=== PATIENT | male | born 1940 | race African-American/Black ===

== ENCOUNTER 2016-10-11 07:40 | Day surgery (SDC) | payer OTHER ==
[2016-10-11] MEDS ORDERED: FLUMAZENIL 0.5 MG/5 ML MDV IVP ONE (08:06)
[2016-10-11] MEDS ORDERED: NALOXONE HCL 0.4 MG/ML INJ ONE (08:06)
[2016-10-11] MEDS ORDERED: fentaNYL 100 MCG/2 ML INJ ONE ×2 (08:07→09:40)
[2016-10-11] MEDS ORDERED: MIDAZOLAM 2 MG/2 ML VIAL ONE (08:08)
[2016-10-11 08:56] LABS: HEMATOCRIT 35.9 % (40.0-51.0)
[2016-10-11 09:12] LABS: CREATININE 6.2 mg/dL (0.7-1.3)
[2016-10-11 09:19] LABS: INR 1.14 (0.83-1.16); PROTIME(PATIENT) 14.5 SEC (12.0-15.0)
[2016-10-11 09:20] LABS: APTT 37.2 SEC (23.0-38.0)
[2016-10-11] MEDS ORDERED: IOPAMIDOL (ISOVUE-300) 100 ML BTL IV ONE (16:59)
== END 2016-10-11 10:50 | disposition home or self-care (01) ==
LOC: FIMAGING 07:40
PROVIDERS: ATTEND Internal Medicine Nephrology
PROC: B51W1ZA Fluoroscopy of Dialysis Shunt/Fistula using Low Osmolar Contrast, Guidance (ICD-10-PCS; principal; 2016-10-11 10:15)
PROC: 057F3ZZ Dilation of Left Cephalic Vein, Percutaneous Approach (ICD-10-PCS; principal; 2016-10-11 10:15)
DX: T82.858A Stenosis of other vascular prosthetic devices, implants and grafts, initial encounter (principal); N18.6 End stage renal disease
CPT/HCPCS: 36902; 99152; 99153; C1769; C1894; C1725; J1644; J2250; J2310; J3010; Q9967

== ENCOUNTER → 2017-01-22 | Day surgery (SDC) | payer OTHER ==
[~2017-01-22] MED LIST: IOPAMIDOL (ISOVUE-300) 100 ML BTL ONE
== END | disposition home or self-care (01) ==
LOC: FIMAGING 07:39
PROVIDERS: ATTEND Radiology Diagnostic Radiology
PROC: 057C3ZZ Dilation of Left Basilic Vein, Percutaneous Approach (ICD-10-PCS; principal; 2017-01-22)
PROC: 057 Upper Veins, Dilation (ICD-10-PCS; principal; 2017-01-22)
DX: T82.858A Stenosis of other vascular prosthetic devices, implants and grafts, initial encounter (principal); N18.6 End stage renal disease
CPT/HCPCS: 36902; C1758; C1769; C1894; C1725; J1644; Q9967

== ENCOUNTER 2017-07-26 08:50 | Emergency (ER) | payer OTHER ==
[2017-07-26 08:56] VITALS: RESP 18; TEMP 98.2; O2SAT 95
--- NOTE | 2017-07-26 09:32 | EDPHY ---
General Narrative: CHIEF COMPLAINT: Diarrhea HISTORY OF PRESENT ILLNESS: Patient complains of 3 days duration of diarrhea. Sudden onset Saturday morning awoke from sleep. Constant duration. Multiple bowel movements per day, too numerous to count. No fever. No abdominal pain. No nausea or vomiting. No bright red blood in the diarrhea. Described as watery brown. No solid component to it. No recent travel or hospitalizations. No recent antibiotics. The patient thinks that it was due to a meal that was prepared outside the home on Saturday. This was a meal prepared at a halfway or 1 of his friends lives. No other associated complaints or modifying factors. Patient dialyzes Saturday, Saturday and Saturday. Next eyelids scheduled for 11:30 a.m. today REVIEW OF SYSTEMS: Ten systems reviewed and are negative unless otherwise noted in the HPI PCP: Dr. Bonilla SPECIALISTS: [facility] (formerly [facility])[3] PAST MEDICAL HISTORY: Hypertension, chronic kidney disease, coronary artery disease, diverticulitis, PAST SURGICAL HISTORY: Partial colectomy, cardiac stents, left arm fistula, hip surgery SOCIAL HISTORY: Nonsmoker. FAMILY HISTORY: Noncontributory EXAMINATION General Appearance: Alert, no distress Head: normocephalic, atraumatic Eyes: Pupils equal and round, no conjunctival pallor or injection ENT, Mouth: Mucous membranes moist. Airway patent Neck: Normal inspection, supple, non-tender Respiratory: Lungs are clear to auscultation. No wheezing. No crackles. No diminishment. No labored breathing Cardiovascular: Regular rate and rhythm. No murmur. Palpable thrill to left upper extremity fistula Gastrointestinal: Abdomen is soft and nontender. No distention. No tympany. No rigidity. Bowel sounds are present in all 4 quadrants Back: non-tender, no bony abnormalities Neurological: GCS 15. A&O, nonfocal, normal gait. Strength symmetric Skin: Warm and dry, no rash Extremities: Nontender, no pedal edema Psychiatric: Mood and affect normal DIFFERENTIAL DIAGNOSES: Including but not limited to infectious diarrhea, dehydration, colitis, diverticulitis, enteritis, gastroenteritis MDM: 9:18 a.m. Diarrhea of 3 days duration. This is a watery brown diarrhea. No bright red blood. No abdominal pain. No fever. No shortness of breath. No recent hospitalizations or antibiotics. No travel. No known sick contacts. Did have a meal prepared at a halfway on Saturday night he suspects was the cause. Abdominal exam is benign. He is in no acute distress. No tachycardia. 10:40 a.m. Patient re-evaluated. He is resting comfortably and was asleep when I enter the room. He has not yet had a bowel movement. At this time he is going to try and provide a sample. 10:50 a.m. Patient went to the restroom but was unable to provide a sample. He says he is feeling better. At this point he has a benign abdominal examination. Vital signs are stable. He does not need emergent dialysis, and he has dialysis scheduled at 11:30 a.m.. He is asking to be discharged home. I do feel he is stable to do so. He will follow up with primary care physician. He will return to the emergency department for any return of diarrhea. He is comfortable this plan and discharged home stable condition. SUPERVISION: Patient was independently examined, but I discussed the case with my secondary supervising physician Dr. Clark - History Smoking Status: Never smoked - Objective Vital Signs: Initial Vital Signs Temperature (C) 98.2 F 07/26/17 08:51 Heart Rate 83 07/26/17 08:51 Respiratory Rate 18 07/26/17 08:51 Blood Pressure 198/114 H 07/26/17 08:51 O2 Sat (%) 95 07/26/17 08:51 O2 Delivery Mode Room Air Allergies/Adverse Reactions: No Known Allergies Allergy (Verified 10/01/16 17:21) Home Medications: Medication Instructions Recorded Cholecalciferol Vit D3 [Vitamin D3 1,000 units PO DAILY 08/04/14 (*)] Gabapentin [Neurontin 100 MG (*)] 200 mg PO HS 01/03/16 Aspirin [Aspirin 81mg (*)] 81 mg PO DAILY 06/04/16 Ferrous Sulfate [Ferrous Sulf 325 325 mg PO DAILY 06/04/16 MG (*)] Herbals/Supplements -Info Only 1 ea PO DAILY 06/04/16 C/E/Zn/Cu/OM3/DHA/EPA/LUT/ZEAX 1 each PO DAILY 07/17/16 [Preservision Areds 2 Softgel] Amlodipine Besylate 07/26/17 Lisinopril 07/26/17 Laboratory Results: Laboratory Results 07/26/17 09:26 07/26/17 09:26 07/26/17 07/26/17 09: 09:26 WBC 4.12 10^3/uL 10^3/uL (3.80-9.50) RBC 3.23 10^6/uL L 10^6/uL (4.40-6.38) Hgb 10.3 g/dL L g/dL (13.7-17.5) Hct 29.5 % L % (40.0-51.0) MCV 91.3 fL fL (81.5-99.8) MCH 31.9 pg pg (27.9-34.1) MCHC 34.9 g/dL g/dL (32.4-36.7) RDW 12.8 % % (11.5-15.2) Plt Count 154 10^3/uL 10^3/uL (150-400) MPV 10.1 fL fL (8.7-11.7) Neut % (Auto) 64.3 % % (39.3-74.2) Lymph % (Auto) 18.0 % % (15.0-45.0) Armstrong % (Auto) 14.6 % H % (4.5-13.0) Eos % (Auto) 2.9 % % (0.6-7.6) Baso % (Auto) 0.0 % L % (0.3-1.7) Nucleat RBC Rel Count 0.0 % % (0.0-0.2) Absolute Neuts (auto) 2.65 10^3/uL 10^3/uL (1.70-6.50) Absolute Lymphs (auto) 0.74 10^3/uL L 10^3/uL (1.00-3.00) Absolute Monos (auto) 0.60 10^3/uL 10^3/uL (0.30-0.80) Absolute Eos (auto) 0.12 10^3/uL 10^3/uL (0.03-0.40) Absolute Basos (auto) 0.00 10^3/uL L 10^3/uL (0.02-0.10) Absolute Nucleated RBC 0.00 10^3/uL 10^3/uL (0-0.01) Immature Gran % 0.2 % % (0.0-1.1) Immature Gran # 0.01 10^3/uL 10^3/uL (0.00-0.10) Sodium 143 mEq/L mEq/L (134-144) Potassium 4.3 mEq/L mEq/L (3.5-5.2) Chloride 102 mEq/L mEq/L (97-110) Carbon Dioxide 20 mEq/l L mEq/l (22-31) Anion Gap 21 mEq/L H mEq/L (8-16) BUN 71 mg/dL H mg/dL (7-23) Creatinine 11.6 mg/dL H* mg/dL (0.7-1.3) Estimated GFR 4 Glucose 90 mg/dL mg/dL (70-100) Calcium 8.3 mg/dL L mg/dL (8.5-10.4) Phosphorus 5.5 mg/dL H mg/dL (2.5-4.5) Departure - Departure Disposition: Home, Routine, Self-Care Clinical Impression: CKD (chronic kidney disease) stage V requiring chronic dialysis Diarrhea Qualifiers: Diarrhea type: unspecified type Qualified Code(s): R19.7 - Diarrhea, unspecified Condition: Good Instructions: Loperamide (By mouth), Acute Diarrhea (ED) Additional Instructions: 1. Proceed to your schedule dialysis 2. Return to the emergency department for return of diarrhea or for any abdominal pain Referrals: Diana Bonilla MD [Medical Doctor] - As per Instructions
[2017-07-26 09:40] LABS: % IMMATURE GRANULYOCYTES 0.2 % (0.0-1.1); ABSOLUTE IMMATURE GRANULOCYTES 0.01 10^3/uL (0.00-0.10); ADD DIFF? NO; ADD MORPH? NO; ADD SCAN? NO; ATYPICAL LYMPHOCYTE FLAG 30 (0-99); FRAGMENT RBC FLAG 0 (0-99); HEMATOCRIT 29.5 % (40.0-51.0); HEMOGLOBIN 10.3 g/dL (13.7-17.5); LEFT SHIFT FLG 0 (0-99); LIPEMIA HEMOLYSIS FLAG 90 (0-99); MEAN CELL HEMOGLOBIN 31.9 pg (27.9-34.1); MEAN CELL HEMOGLOBIN CONCENTR. 34.9 g/dL (32.4-36.7); MEAN CELL VOLUME 91.3 fL (81.5-99.8); MEAN PLATELET VOLUME 10.1 fL (8.7-11.7); PLATELET CLUMPS FLAG 0 (0-99); PLATELET COUNT 154 10^3/uL (150-400); RED BLOOD CELL COUNT 3.23 10^6/uL (4.40-6.38); RED CELL DISTRIBUTION WIDTH 12.8 % (11.5-15.2)
[2017-07-26 09:50] LABS: ANION GAP 21 mEq/L (8-16); CALCIUM 8.3 mg/dL (8.5-10.4); CARBON DIOXIDE 20 mEq/l (22-31); CHLORIDE 102 mEq/L (97-110); GLOMERULAR FILTRATION RATE 4; GLUCOSE 90 mg/dL (70-100); POTASSIUM 4.3 mEq/L (3.5-5.2); SODIUM 143 mEq/L (134-144)
[2017-07-26 09:56] LABS: CREATININE 11.6 mg/dL (0.7-1.3)
[2017-07-26 11:20] VITALS: BP 201/87; PULSE 74
== END 2017-07-26 11:23 | disposition home or self-care (01) ==
DX: R19.7 Diarrhea, unspecified (principal); I12.0 Hypertensive chronic kidney disease with stage 5 chronic kidney disease or end stage renal disease; I25.10 Atherosclerotic heart disease of native coronary artery without angina pectoris; N18.5 Chronic kidney disease, stage 5; Z79.82 Long term (current) use of aspirin; Z95.5 Presence of coronary angioplasty implant and graft; Z99.2 Dependence on renal dialysis

== ENCOUNTER → 2018-01-30 | Day surgery (SDC) | payer OTHER ==
[~2018-01-30] MED LIST changes: +LIDOCAINE 1% 300 MG/30 ML SDV ONE
--- NOTE | 2018-01-30 09:59 | PDRADPN ---
Radiology Procedure Note Date of Procedure: 01/30/18 Radiologist: Evangelista Colin Anesthesia: Local (Specify) Pre-op Diagnosis: avf with prolonged bleeding Post-op Diagnosis: same Indication: tx Procedure: fistulagram with 7mm forearm cephalic venoplasty. Finding(s): 3-4cm moderate stenosis mid forearm outflow vein. Resistant to 7mm plasty, but waist did relent completely after 2 mins at burst pressure of 22 mmHg. Excellent profile post tx. Inf/Abcess present in the surg proc area at time of surgery?: No EBL: Minimal Complications: none
== END | disposition home or self-care (01) ==
LOC: FIMAGING 08:30
PROVIDERS: ATTEND Internal Medicine Nephrology
PROC: 057F3ZZ Dilation of Left Cephalic Vein, Percutaneous Approach (ICD-10-PCS; principal; 2018-01-30)
PROC: B51N1ZZ Fluoroscopy of Left Upper Extremity Veins using Low Osmolar Contrast (ICD-10-PCS; principal; 2018-01-30)
DX: T82.858A Stenosis of other vascular prosthetic devices, implants and grafts, initial encounter (principal); T82.848A Pain due to vascular prosthetic devices, implants and grafts, initial encounter; Z99.2 Dependence on renal dialysis
CPT/HCPCS: 36902; C1769; C1894; C1725; J1644; Q9967

== ENCOUNTER → 2018-02-18 | Outpatient (CLI) | payer OTHER | LOC: BHFA 15:30 | PROVIDERS: ATTEND Internal Medicine Cardiovascular Disease | DX: R53.1 Weakness (principal) ==

== ENCOUNTER 2018-07-11 19:06 | Inpatient (IN) | payer OTHER ==
--- NOTE | 2018-07-11 19:30 | EDPHY ---
H & P Stated Complaint: rectal bleeding Time Seen by Provider: 07/11/18 19:19 HPI/ROS: CHIEF COMPLAINT: Rectal bleeding HISTORY OF PRESENT ILLNESS: The 78-year-old male with end-stage renal disease presents with bright red blood per rectum. History of diverticular bleed in 2016, requiring several units of packed red blood cells and partial colectomy. Onset rectal bleeding just prior to arrival. Had the urge to have a bowel movement and passed a large amount of bright red blood in the toilet, without stool. No dizziness, weakness, cp, SOB. No abdominal pain or vomiting. REVIEW OF SYSTEMS: complete 10 point ROS reviewed and is negative except for the noted elements in the HPI - Personal History Current Tetanus Diphtheria and Acellular Pertussis (TDAP): Yes - Medical/Surgical History Hx Asthma: No Hx Chronic Respiratory Disease: No Hx Diabetes: No Hx Cardiac Disease: Yes Hx Renal Disease: Yes Hx Cirrhosis: No Hx Alcoholism: No Hx HIV/AIDS: No Hx Splenectomy or Spleen Trauma: No Other PMH: dialysis, sleep apnea,KIDNEY DISEASE L ARM FISTULA, COLON SURGERY FOR BLEEDING DIVERTICULUM, AK,STENTS, HIP SURGERY. HTN - Social History Smoking Status: Never smoked Alcohol Use: Sober Drug Use: None - Physical Exam Exam: General Appearance: Alert, pleasant Eyes: Pupils equal and round, no conjunctival pallor or injection ENT, Mouth: Mucous membranes moist Neck: Normal inspection Respiratory: Lungs are clear to auscultation Cardiovascular: Regular rate and rhythm Gastrointestinal: Abdomen is soft and nontender Rectal: Bright red blood present Neurological: A&O, nonfocal exam Skin: Warm and dry Extremities: Shunt right forearm Psychiatric: Mood and affect normal Constitutional: Initial Vital Signs Temperature (C) 36.8 C 07/11/18 19:12 Heart Rate 73 07/11/18 19:12 Respiratory Rate 20 07/11/18 19:12 Blood Pressure 196/87 H 07/11/18 19:12 O2 Sat (%) 96 07/11/18 19:12 O2 Delivery Mode Nasal Cannula O2 (L/minute) 2 Allergies/Adverse Reactions: No Known Allergies Allergy (Verified 07/11/18 19:12) Home Medications: Medication Instructions Recorded Aspirin [Aspirin 81mg (*)] 81 mg PO DAILY 07/11/18 Calcium Carbonate [Tums 500MG (*)] 500 mg PO HS 07/11/18 Cholecalciferol Vit D3 [Vitamin D3 1,000 units PO DAILY 07/11/18 (*)] Folic Acid/Vit B Com W/C 1 each PO DAILY 07/11/18 [Nephro-Arcadio Rx (RX)] Gabapentin [Neurontin 100 MG (*)] 200 mg PO HS 07/11/18 Herbals/Supplements -Info Only 1 ea PO DAILY 07/11/18 Lisinopril [Zestril 40 mg (*)] 40 mg PO DAILY 07/11/18 Metolazone [Zaroxolyn 5MG (*)] 5 mg PO DAILY 07/11/18 amLODIPine BESYLATE [Norvasc 10 mg 10 mg PO DAILY 07/11/18 (*)] Medical Decision Making - Diagnostics EKG Interpretation: EKG interpreted by me reveals 1st degree AV block, rate 72, RBBB, LAFB. Interpretation: abnormal EKG ED Course/Re-evaluation: BRBPR in pt with prior h/o severe lower GI hemorrhage. VS stable and initial Hct unremarkable. Pt stable throughout ED stay. No rectal bleeding in ED. Concern for recurrent diverticular bleeding. Will admit for obs/GI eval. The hospitalist service was consulted for admission. Differential Diagnosis: includes though not limited to diverticular bleed, AVM, upper GI bleed including PUD/varices, severe anemia, hypotension - Data Points Laboratory Results: Laboratory Results 07/12/18 03:58 07/12/18 03:58 07/11/18 19:50 Patient ABO/Rh O POSITIVE Antibody Screen NEGATIVE Crossmatch IS Only See Detail Medications Given: Acetaminophen (Tylenol) 650 mg PO Q4HRS PRN PRN Reason: Pain, Mild/Fever, Can Take PO Stop: 01/07/19 22:13 Last Admin: 07/14/18 08:51 Dose: 650 mg Amlodipine Besylate (Norvasc) 10 mg PO DAILY JACKSON Stop: 01/09/19 10:29 Last Admin: 07/13/18 12:17 Dose: 10 mg Calcium Carbonate (Tums) 500 mg PO HS PRN PRN Reason: GERD Stop: 01/08/19 00:42 Last Admin: 07/12/18 01:00 Dose: 500 mg Cholecalciferol (Vitamin D) 1,000 units PO DAILY JACKSON Stop: 01/08/19 08:59 Last Admin: 07/14/18 08:51 Dose: 1,000 units Gabapentin (Neurontin) 200 mg PO HS PRN PRN Reason: Pain Stop: 01/08/19 00:42 Last Admin: 07/12/18 01:00 Dose: 200 mg Metolazone (Zaroxolyn) 5 mg PO DAILY JACKSON Stop: 01/09/19 10:29 Last Admin: 07/13/18 12:17 Dose: 5 mg Vitamin B Complex/Vit C/Folic Acid (Patience-Arcadio) 1 each PO DAILY JACKSON Stop: 01/08/19 08:59 Last Admin: 07/14/18 08:51 Dose: 1 each Discontinued Medications Sodium Chloride (Ns) 1,000 mls @ 0 mls/hr IV ONCE ONE PRN Reason: As Directed Stop: 07/13/18 07:48 Last Admin: 07/13/18 07:53 Dose: 1,000 mls Polyethylene Glycol/Electrolytes (Gavilyte - G) 4,000 ml PO ONCE ONE Stop: 07/12/18 14:28 Last Admin: 07/12/18 15:06 Dose: 4,000 ml Departure - Departure Disposition: [facility] Inpatient Acute Clinical Impression: Lower GI bleed Condition: Fair
[2018-07-11 20:10] LABS: PLATELET COUNT 160 10^3/uL (150-400)
[2018-07-11] MEDS ORDERED: ONDANSETRON DISINTEGRATING 4 MG TAB PO PRN (22:14)
[2018-07-11] MEDS ORDERED: ONDANSETRON 4 MG/2 ML VIAL IVP PRN (22:14)
--- NOTE | 2018-07-11 23:10 | CPEKG ---
Test Reason : OPEN Blood Pressure : / mmHG Vent. Rate : 072 BPM Atrial Rate : 072 BPM P-R Int : 237 ms QRS Dur : 150 ms QT Int : 462 ms P-R-T Axes : 052 -80 037 degrees QTc Int : 506 ms Sinus rhythm Prolonged ND interval Probable left atrial enlargement RBBB and LAFB Confirmed by Audrey Pa ([id number]) on 07/11/2018 11:09:18 PM Referred By: Confirmed By:Audrey Pa
--- NOTE | 2018-07-11 23:53 | PDGENHP ---
History and Physical - Chief Complaint Hematochezia - History of Present Illness 78 yo M w/ hx of ESRD, CAD, HTN, and diverticular bleed presents with hematochezia. Patient was in usual state of health until this evening when he noted bright red blood per rectum. This has happened twice so far this evening. He denies symptoms such as lightheadedness or dizziness. He has been hemodynamically stable and not tachycardic. His Hgb is near his usual baseline. His last HD session was today; he is on a MWF HD schedule and has had no issues related to this as of late. Of note, the patient suffered a diverticular bleed first in 2013. He had several recurrences and as a result underwent partial colectomy w/ ileostomy and eventual takedown in 2015. He has had no issues with GI bleeds since then. Case discussed with Dr. Solano; records reviewed and summarized above. History Information - Allergies/Home Medication List Allergies/Adverse Reactions: No Known Allergies Allergy (Verified 07/11/18 19:12) Home Medications: Aspirin [Aspirin 81mg (*)] 81 mg PO DAILY 07/11/18 [Last Taken 07/11/18] Calcium Carbonate [Tums 500MG (*)] 500 mg PO HS 07/11/18 [Last Taken 07/10/18] Cholecalciferol Vit D3 [Vitamin D3 (*)] 1,000 units PO DAILY 07/11/18 [Last Taken 07/11/18] Folic Acid/Vit B Com W/C [Nephro-Arcadio Rx (RX)] 1 each PO DAILY 07/11/18 [Last Taken 07/11/18] Gabapentin [Neurontin 100 MG (*)] 200 mg PO HS 07/11/18 [Last Taken 07/11/18] Herbals/Supplements -Info Only 1 ea PO DAILY 07/11/18 [Last Taken 07/11/18] Lisinopril [Zestril 40 mg (*)] 40 mg PO DAILY 07/11/18 [Last Taken 07/11/18] Metolazone [Zaroxolyn 5MG (*)] 5 mg PO DAILY 07/11/18 [Last Taken 07/11/18] amLODIPine BESYLATE [Norvasc 10 mg (*)] 10 mg PO DAILY 07/11/18 [Last Taken ] I have personally reviewed and updated: family history, medical history - Past Medical History ESRD, hypertension - Surgical History Reports: colectomy - Family History Additional family history: CKD in his father. No hx of GI disease - Social History Smoking Status: Never smoked Alcohol Use: Sober Drug Use: None Review of Systems Review of Systems: ROS: 10pt was reviewed & negative except for what was stated in HPI & below Physical Exam Physical Exam: Temp Pulse Resp BP Pulse Ox 36.8 C 63 14 176/77 H 94 07/11/18 22:12 07/11/18 22:12 07/11/18 22:12 07/11/18 22:12 07/11/18 22:12 Constitutional: no apparent distress, not in pain Eyes: PERRL, EOMI Ears, Nose, Mouth, Throat: moist mucous membranes, no oral mucosal ulcers Cardiovascular: regular rate and rhythym, systolic murmur Respiratory: no respiratory distress, clear to auscultation Gastrointestinal: normoactive bowel sounds, soft, non-tender abdomen Skin: warm, normal color, other (Fistula with palpable thrill) Musculoskeletal: full muscle strength, no muscle tenderness Neurologic: AAOx3, CN II-XII Intact Psychiatric: interacting appropriately, not anxious Lab Data & Imaging Review 07/11/18 19:50 07/11/18 19:50 WBC 4.68 10^3/uL (3.80-9.50) 07/11/18 19:50 RBC 3.42 10^6/uL (4.40-6.38) L 07/11/18 19:50 Hgb 10.0 g/dL (13.7-17.5) L 07/11/18 19:50 Hct 30.6 % (40.0-51.0) L 07/11/18 19:50 MCV 89.5 fL (81.5-99.8) 07/11/18 19:50 MCH 29.2 pg (27.9-34.1) 07/11/18 19:50 MCHC 32.7 g/dL (32.4-36.7) 07/11/18 19:50 RDW 14.3 % (11.5-15.2) 07/11/18 19:50 Plt Count 160 10^3/uL (150-400) 07/11/18 19:50 MPV 10.5 fL (8.7-11.7) 07/11/18 19:50 Neut % (Auto) 66.9 % (39.3-74.2) 07/11/18 19:50 Lymph % (Auto) 16.5 % (15.0-45.0) 07/11/18 19:50 Wharton % (Auto) 12.4 % (4.5-13.0) 07/11/18 19:50 Eos % (Auto) 3.6 % (0.6-7.6) 07/11/18 19:50 Baso % (Auto) 0.0 % (0.3-1.7) L 07/11/18 19:50 Nucleat RBC Rel Count 0.0 % (0.0-0.2) 07/11/18 19:50 Absolute Neuts (auto) 3.13 10^3/uL (1.70-6.50) 07/11/18 19:50 Absolute Lymphs (auto) 0.77 10^3/uL (1.00-3.00) L 07/11/18 19:50 Absolute Monos (auto) 0.58 10^3/uL (0.30-0.80) 07/11/18 19:50 Absolute Eos (auto) 0.17 10^3/uL (0.03-0.40) 07/11/18 19:50 Absolute Basos (auto) 0.00 10^3/uL (0.02-0.10) L 07/11/18 19:50 Absolute Nucleated RBC 0.00 10^3/uL (0-0.01) 07/11/18 19:50 Immature Gran % 0.6 % (0.0-1.1) 07/11/18 19:50 Immature Gran # 0.03 10^3/uL (0.00-0.10) 07/11/18 19:50 Sodium 135 mEq/L (135-145) 07/11/18 19:50 Potassium 4.1 mEq/L (3.3-5.0) 07/11/18 19:50 Chloride 97 mEq/L (97-110) 07/11/18 19:50 Carbon Dioxide 32 mEq/l (22-31) H 07/11/18 19:50 Anion Gap 6 mEq/L (6-14) 07/11/18 19:50 BUN 24 mg/dL (7-23) H 07/11/18 19:50 Creatinine 4.7 mg/dL (0.7-1.3) H 07/11/18 19:50 Estimated GFR 12 07/11/18 19:50 Glucose 108 mg/dL (70-100) H 07/11/18 19:50 Calcium 9.0 mg/dL (8.5-10.4) 07/11/18 19:50 Stool Occult Bld Scrn POSITIVE (NEGATIVE) H 07/11/18 19:44 Patient ABO/Rh O POSITIVE 07/11/18 19:50 Antibody Screen NEGATIVE 07/11/18 19:50 Visualized and Interpreted EKG results: Yes EKG Interpretation: Positive for: normal sinsus rhythm, other (Bifascicular block) Assessment & Plan Assessment: 78 yo M w/ hx of ESRD, CAD, HTN, and prior diverticular bleed s/p partial colectomy presents with hematochezia. Plan: 1. Hematochezia - Suspect lower GI source noting BRBPR x2 coupled with hemodynamic stability. He does have prior history of diverticular bleed. This was treated with partial colectomy in 2016 and he has had no other GI Bleeds until now. He is not tachycardic and BP remains WNL. - Maintain NPO - Cautious w/ IVF noting ESRD, will only start if he develops symptoms - Monitor CBC, next at 0600 - GI consult in the morning; will call tonight if condition worsens - Transfuse for Hgb <8 noting CAD 2. CAD - With PA and 4 stents placed in 2016; he denies chest pain at this time. - Hold ASA noting bleeding 3. ESRD - MWF HD; his last session was on the day of admission. 4. HTN - Hold agents pending resolution of bleeding. 5. Anemia - Hgb 10.0 on admission, which is near baseline; I suspect it is too early to gauge effect from bleeding. - Monitor CBC as above Diet - NPO Code - Full Ppx - SCDs Dispo - Admit under observation status
[2018-07-12] MEDS ORDERED: GABAPENTIN 100 MG CAP PO PRN (00:43)
[2018-07-12] MEDS ORDERED: CALCIUM CARBONATE 500 MG CHEWABLE TAB PO PRN (00:43)
[2018-07-12] MEDS: ACETAMINOPHEN 325 MG TAB PO PRN ×2 (00:59→19:08)
[2018-07-12 05:00] LABS: PLATELET COUNT 122 10^3/uL (150-400)
[2018-07-12] MEDS ORDERED: Herbals/Supplements -Info Only PO SCH (09:00)
[2018-07-12] MEDS: CHOLECALCIFEROL VIT D3 1,000 UNITS TAB PO SCH (13:51)
[2018-07-12] MEDS: NEPHROVITE FOLIC ACID/VIT B&C 1 TAB PO SCH (13:51)
[2018-07-12] MEDS ORDERED: PEG 3350/NA SULF,BICARB,CL/KCL (GAVILYTE-G) 4000 ML BTL PO ONE (14:27)
[2018-07-12] MEDS ORDERED: IOPAMIDOL (ISOVUE 370) 100 ML BTL IV ONE (15:43)
--- NOTE | 2018-07-12 16:27 | HOSPPROG ---
Hospitalist Progress Note Assessment/Plan: * LGIB - likely recurrent diverticular -clinically still bleeding -tagged RBC scan positive transverse colon -lengthy discussions with Dr. Gonzalez and Dr. Cr regarding best approach -consider IR ablation vs. colonoscopy -surgery aware of admit - last option if unable to control bleeding * ESRD -d/w nephrology - likely to need HD tomorrow with IV contrast today * Acute blood loss anemia -transfuse this am, serial H/H * h/o sigmoid colectomy for recurrent diverticular bleeds * CAD/stent -hold ASA * HTN -hold BP meds due to hypotension CC time - 45 minutes Subjective: Still BRBPR Objective: Vital Signs Temp Pulse Resp BP Pulse Ox 36.7 C 73 16 157/84 H 94 07/12/18 15:21 07/12/18 15:21 07/12/18 15:21 07/12/18 15:21 07/12/18 15:21 Laboratory Results 07/12/18 03:58 07/12/18 03:58 07/11/18 07/12/18 07/13/18 05:59 05:59 05:59 Intake Total 0 Balance 0 tagged RBC cell scan - positive transverse colon d/w Dr. Gonzalez and Shaye and DrGraauw - Physical Exam Constitutional: no apparent distress, appears nourished, not in pain Cardiovascular: regular rate and rhythym, no murmur, rub, or gallop Respiratory: no respiratory distress, no rales or rhonchi, clear to auscultation Gastrointestinal: normoactive bowel sounds, soft, non-tender abdomen, no palpable masses Skin: no rashes or abrasions, no fluctuance, no induration Neurologic: AAOx3, sensation intact bilaterally Psychiatric: interacting appropriately, not anxious, not encephalopathic, thought process linear ICD10 Worksheet Patient Problems: Problems Problem Status Onset Lower GI bleed Acute Rectal bleeding Acute Anemia Acute End stage renal disease Acute GI bleeding Acute Renal failure Acute Coronary arteriosclerosis after percutaneous transluminal coronary angioplasty ( PTCA) Acute Non-ST elevation (NSTEMI) myocardial infarction Acute Non-ST elevation myocardial infarction (NSTEMI) due to mismatch of myocardial oxygen supply and demand Acute Hypotension Acute
--- NOTE | 2018-07-12 16:39 | SOAPPROG ---
DEBRA Progress Note Assessment/Plan: Assessment: #ESRD- [facility] -next HD tomorrow or Saturday pending plan for GI bleeding, labs (I suggested tomorrow but pt requesting Saturday if possible) #GI bleed -may be diverticular -he has history of diverticulosis requiring partial colectomy in past -was on ASA for CAD stent -received PRBCs -GI and IR following-- getting colonscopy prep -receiving ROSALIA as outpt for anemia of CKD and will continue # MBD of CKD -renal diet when taking po #HTN -tends to run high at baseline and resistant to more meds- reasonable control currently bibiana in light of GI bleed #CAD s/p stent- asa held I discussed with Dr. Dada Marquez MD [facility] pager [phone] 07/12/18 18:15 Subjective: 78 M with ESRD ([facility]), HTN, diverticulosis requiring partial colectomy in past, CAD s/p stent admitted with rectal bleeding. I know him from outpt dialysis. Getting colonscopy prep and GI and IR involved. Also had CTAngio earlier. Nuc scan revealed active bleed in transverse colon. Received PRBCs. Denies abd pain, sob, dizziness, cp. Objective: Vital Signs Temp Pulse Resp BP Pulse Ox 36.7 C 73 16 157/84 H 94 07/12/18 15:21 07/12/18 15:21 07/12/18 15:21 07/12/18 15:21 07/12/18 15:21 Laboratory Results 07/12/18 03:58 07/12/18 03:58 07/11/18 07/12/18 07/13/18 05:59 05:59 05:59 Intake Total 0 Balance 0 Physical Exam - Physical Exam General Appearance: alert, no apparent distress EENT: other (mmm) Neck: supple Respiratory: lungs clear Cardiac/Chest: regular rate, rhythm, other (no rub) Abdomen: normal bowel sounds, non-tender, soft Skin: warm/dry Extremities: other (no edema, UE AVF +Thrill/bruit) Neuro/Psych: alert, oriented x 3 ICD10 Worksheet Patient Problems: Problems Problem Status Onset Anemia Acute Coronary arteriosclerosis after percutaneous transluminal coronary angioplasty ( PTCA) Acute End stage renal disease Acute GI bleeding Acute Hypotension Acute Lower GI bleed Acute Non-ST elevation (NSTEMI) myocardial infarction Acute Non-ST elevation myocardial infarction (NSTEMI) due to mismatch of myocardial oxygen supply and demand Acute Rectal bleeding Acute Renal failure Acute
[2018-07-12] MEDS ORDERED: IOPAMIDOL (ISOVUE-300) 100 ML BTL ONE (18:53)
[2018-07-13 03:17] LABS: PLATELET COUNT 92 10^3/uL (150-400)
[2018-07-13] MEDS ORDERED: NS 1,000 ML IV ONE (07:47)
[2018-07-13] MEDS ORDERED: ALBUTEROL 3 ML DEYVIAL IH PRN (07:59)
[2018-07-13] MEDS ORDERED: DEXAMETHASONE 4 MG/ML VIAL IVP PRN (07:59)
[2018-07-13] MEDS ORDERED: ONDANSETRON 4 MG/2 ML VIAL IVP PRN (07:59)
[2018-07-13] MEDS ORDERED: NALOXONE HCL 0.4 MG/ML INJ IVP PRN (07:59)
--- NOTE | 2018-07-13 07:59 | PDANEPAE ---
ANE History of Present Illness here for EGD/Colon for GI bleed ANE Past Medical History - Cardiovascular History Hx Hypertension: Yes Hx Arrhythmias: No Hx Chest Pain: No Hx Coronary Artery / Peripheral Vascular Disease: Yes Hx CHF / Valvular Disease: No Hx Palpitations: No Cardiovascular History Comment: STENTS X 6 2016 - Pulmonary History Hx COPD: No Hx Asthma/Reactive Airway Disease: No Hx Recent Upper Respiratory Infection: Yes Hx Oxygen in Use at Home: No Hx Sleep Apnea: Yes Sleep Apnea Screening Result - Last Documented: Positive Pulmonary History Comment: cpap - Neurologic History Hx Cerebrovascular Accident: No Hx Seizures: No Hx Dementia: No - Endocrine History Hx Diabetes: No - Renal History Hx Renal Disorders: Yes Renal History Comment: FAILURE - Liver History Hx Hepatic Disorders: No - Neurological & Psychiatric Hx Hx Neurological and Psychiatric Disorders: No - Cancer History Hx Cancer: Yes Cancer History Comment: Prostate - Congenital Disorder History Hx Congenital Disorders: No - GI History Hx Gastrointestinal Disorders: Yes Gastrointestinal History Comment: colostomy - Other Health History Other Health History: vision loss, corrected w/ surgery - Chronic Pain History Chronic Pain: No - Surgical History Prior Surgeries: 01/16/2016 colostomy; fisutula; PD catheter inserstion and removal; HD catheter insertion and removal; prostate resection (BPH), ANE Review of Systems Review of systems is: negative Review of Systems: - Exercise capacity Exercise capacity: <4 METS ANE Patient History - Allergies Allergies/Adverse Reactions: No Known Allergies Allergy (Verified 07/11/18 19:12) - Home Medications Home medications: home medication list seen and reviewed Home Medications: Aspirin [Aspirin 81mg (*)] 81 mg PO DAILY 07/11/18 [Last Taken 07/11/18] Calcium Carbonate [Tums 500MG (*)] 500 mg PO HS 07/11/18 [Last Taken 07/10/18] Cholecalciferol Vit D3 [Vitamin D3 (*)] 1,000 units PO DAILY 07/11/18 [Last Taken 07/11/18] Folic Acid/Vit B Com W/C [Nephro-Arcadio Rx (RX)] 1 each PO DAILY 07/11/18 [Last Taken 07/11/18] Gabapentin [Neurontin 100 MG (*)] 200 mg PO HS 07/11/18 [Last Taken 07/11/18] Herbals/Supplements -Info Only 1 ea PO DAILY 07/11/18 [Last Taken 07/11/18] Lisinopril [Zestril 40 mg (*)] 40 mg PO DAILY 07/11/18 [Last Taken 07/11/18] Metolazone [Zaroxolyn 5MG (*)] 5 mg PO DAILY 07/11/18 [Last Taken 07/11/18] amLODIPine BESYLATE [Norvasc 10 mg (*)] 10 mg PO DAILY 07/11/18 [Last Taken ] - NPO status NPO Status: no food or drink >8 hours NPO Since - Liquids (Date): 07/12/18 NPO Since - Liquids (Time): 23:59 NPO Since - Solids (Date): 07/12/18 NPO Since - Solids (Time): 23:59 - Smoking Hx Smoking Status: Never smoked - Alcohol Use Alcohol Use: Sober - Family Anes Hx Family Hx Anesthesia Complications: none ANE Labs/Vital Signs - Labs Result Diagrams: 07/13/18 03:10 07/13/18 03:10 - Vital Signs Vital Signs: reviewed preoperatively; see RN documention for details Blood Pressure: 192/72 Heart Rate: 77 Respiratory Rate: 16 O2 Sat (%): 97 Height: 167.64 cm Weight: 74.5 kg ANE Physical Exam - Airway Neck exam: FROM Mallampati Score: Class 1 - Pulmonary Pulmonary: no respiratory distress - Cardiovascular Cardiovascular: regular rate and rhythym - ASA Status ASA Status: III ANE Anesthesia Plan Anesthesia Plan: GA with mask
[2018-07-13] MEDS ORDERED: PROPOFOL/EMULSION 500 MG/50 ML BOTTLE IV ONE (08:04)
--- NOTE | 2018-07-13 08:15 | GIREPORT ---
[facility] Surgical Services - Endoscopy Department Patient Name: Duglas Watters Procedure Date: 07/13/2018 7:36 AM Patient Type: Inpatient Attending MD/ ER Physician: Russel Gonzalez MD Procedure: Upper GI endoscopy Indications: Acute post hemorrhagic anemia, Hematochezia Providers: Russel Gonzalez MD Medicines: Propofol per Anesthesia Complications: No immediate complications. Description of Procedure: After obtaining informed consent, the endoscope was passed under direct vision. Throughout the procedure, the patient's blood pressure, pulse, and oxygen saturations were monitored continuously. The Endoscope was intro duced through the mouth, and advanced to the third part of duodenum. The uppe r GI endoscopy was accomplished without difficulty. The patient tolerated th e procedure well. Findings: The examined esophagus was normal. Patchy mild inflammation characterized by congestion (edema), erosions and erythema was found in the gastric antrum. Biopsies were taken with a co ld forceps for histology. A few diffuse erosions without bleeding were found in the duodenal bulb . The second portion of the duodenum and third portion of the duodenum we re normal. Estimated Blood Loss: Estimated blood loss: none. Post Op Diagnosis: - Normal esophagus. - Chronic gastritis. Biopsied. - Duodenal erosions without bleeding. - Normal second portion of the duodenum and third portion of the duoden um. Recommendation: - Await pathology results. - Perform a colonoscopy today. - Thank you for allowing me to participate in the care of your patient. Attending Participation: I personally performed the entire procedure. Russel Gonzalez MD Russel Gonzalez MD 07/13/2018 8:15:11 AM This report has been signed electronicallyStcarlos alberto Gonzalez MD Number of Addenda: 0 Note Initiated On: 07/13/2018 7:36 AM [email or web address]
[2018-07-13] MEDS ORDERED: ESMOLOL HCL 100 MG/10 ML VIAL IV ONE (08:27)
--- NOTE | 2018-07-13 08:42 | GIREPORT ---
[facility] Surgical Services - Endoscopy Department Patient Name: Duglas Watters Procedure Date: 07/13/2018 7:37 AM Patient Type: Inpatient Attending MD/ ER Physician: Russel Gonzalez MD Procedure: Colonoscopy Indications: Hematochezia, Acute post hemorrhagic anemia. Diverticular bleed. Previo us diverticular bleed requiring sigmoid colectomy 2015. ESRD, HD MWF, HTN. Providers: Russel Gonzalez MD Medicines: Propofol per Anesthesia Complications: No immediate complications. Description of Procedure: After obtaining informed consent, the scope was passed under direct vis ion. Throughout the procedure, the patient's blood pressure, pulse, and oxyg en saturations were monitored continuously. The Colonoscope with irrigatio n channel was introduced through the anus and advanced to the cecum, identified by appendiceal orifice and ileocecal valve. The colonoscopy was performed without difficulty. The patient tolerated the procedure well. The quality of the bowel preparation was good. The ileocecal valve, appendi ceal orifice, and rectum were photographed. Findings: There was evidence of a prior end-to-end colo-colonic anastomosis in th e recto-sigmoid colon @ 20 cm. This was patent and was characterized by healthy appearing mucosa and visible sutures. Many small and large-mouthed diverticula were found in the descending c olon, transverse colon, hepatic flexure and ascending colon. No active bleeding noted. No blood in lumen. Precise location or diverticular bleed was not identified. A 4 mm polyp was found in the cecum. The polyp was sessile. The polyp w as removed with a cold biopsy forceps. Resection and retrieval were comple te. Anal papilla(e) were hypertrophied. The exam was otherwise without abnormality on direct and retroflexion v iews. Estimated Blood Loss: Estimated blood loss: none. Post Op Diagnosis: - No blood in the lumen, no active bleeding. - Clinical presentation c/w recurrent diverticular bleed. Most likely s ite hepatic flexure base on RBC tagged study and CT Angiogram. - Patent end-to-end colo-colonic anastomosis, characterized by healthy appearing mucosa and visible sutures. - Diverticulosis in the descending colon, in the transverse colon, at t he hepatic flexure and in the ascending colon. - One 4 mm polyp in the cecum, removed with a cold biopsy forceps. Rese cted and retrieved. - Anal papilla(e) were hypertrophied. - The examination was otherwise normal on direct and retroflexion views . Recommendation: - Clear liquid diet. - Will observe for signs or symptoms of rebleeding. - Serial H and H - If recurrent bleeding recommend IR intervention otherwise surgical intervention and sub-total colectomy. Attending Participation: I personally performed the entire procedure. Russel Gonzalez MD Russel Gonzalez MD 07/13/2018 8:41:28 AM This report has been signed electronicallyStcarlos alberto Gonzalez MD Number of Addenda: 0 Note Initiated On: 07/13/2018 7:37 AM Total Procedure Duration Time 0 hours 10 minutes 54 seconds [email or web address]
--- NOTE | 2018-07-13 09:09 | POSTANESTH ---
Post Anesthetic Evaluation Cardiovascular Status: Normal, Stable Respiratory Status: Normal, Stable Level of Consciousness/Mental Status: Can Participate in Eval Pain Control: Adequate, Prn Tx Ordered Nausea/Vomiting Control: Adequate, Prn Tx Ordered Complications Possibly Related to Anesthesia: None Noted
[2018-07-13] MEDS ORDERED: hydrALAZINE 20 MG/ML VIAL IVP PRN (10:22)
[2018-07-13] MEDS: METOLAZONE 5 MG TAB PO SCH (12:17)
[2018-07-13] MEDS: CHOLECALCIFEROL VIT D3 1,000 UNITS TAB PO SCH (12:18)
[2018-07-13] MEDS: NEPHROVITE FOLIC ACID/VIT B&C 1 TAB PO SCH (12:18)
[2018-07-13] MEDS: ACETAMINOPHEN 325 MG TAB PO PRN (12:18)
--- NOTE | 2018-07-13 15:34 | PDMN ---
Medical Necessity Medical necessity: [facility] M182 LGIB: 78 yo presents w/ hematochezia, initially OBS but cont to bleed, likely recurrent diverticular LGIB, H&H dropped overnight from 06/10 on admit to 03/02 requiring transfusion. GI consult and colonoscopy performed. Meets [facility] LGIB IP criteria for ongoing active bleeding per rectum and decreasing HCT. Hx ESRD, CAD, HTN, diverticular bleed. Change to IP status 07/12/18@1631 per MD order
--- NOTE | 2018-07-13 16:11 | HOSPPROG ---
Hospitalist Progress Note Assessment/Plan: * LGIB - recurrent diverticular -located at hepatic flexure on tagged RBC scan and CTA -clinically bleeding stopped, colonoscopy negative -home tomorrow if continues without GIB -if recurs, bleeding site has been localized * ESRD -HD tomorrow * Acute blood loss anemia -transfuse again this am 1 unit * h/o sigmoid colectomy for recurrent diverticular bleeds * CAD/stent -hold ASA * HTN -hold BP meds due to hypotension Subjective: no more bleeding Objective: Vital Signs Temp Pulse Resp BP Pulse Ox 36.9 C 80 15 167/84 H 98 07/13/18 12:00 07/13/18 12:00 07/13/18 12:00 07/13/18 12:00 07/13/18 12:00 Laboratory Results 07/13/18 03:10 07/13/18 03:10 07/12/18 07/13/18 07/14/18 05:59 05:59 05:59 Intake Total 740 200 Balance 740 200 - Physical Exam Constitutional: no apparent distress, appears nourished, not in pain Cardiovascular: regular rate and rhythym, no murmur, rub, or gallop Respiratory: no respiratory distress, no rales or rhonchi, clear to auscultation Gastrointestinal: normoactive bowel sounds, soft, non-tender abdomen, no palpable masses Skin: no rashes or abrasions, no fluctuance, no induration Neurologic: AAOx3, sensation intact bilaterally Psychiatric: interacting appropriately, not anxious, not encephalopathic, thought process linear ICD10 Worksheet Patient Problems: Problems Problem Status Onset Lower GI bleed Acute Rectal bleeding Acute Anemia Acute End stage renal disease Acute GI bleeding Acute Renal failure Acute Coronary arteriosclerosis after percutaneous transluminal coronary angioplasty ( PTCA) Acute Non-ST elevation (NSTEMI) myocardial infarction Acute Non-ST elevation myocardial infarction (NSTEMI) due to mismatch of myocardial oxygen supply and demand Acute Hypotension Acute
--- NOTE | 2018-07-13 18:00 | SOAPPROG ---
[place] Progress Note Assessment/Plan: Assessment: #ESRD- [facility] MWF -next HD tomorrow (I offered today but he wants to wait until tomorrow) #GI bleed -he has history of diverticulosis requiring partial colectomy in past -was on ASA for CAD stent -received PRBCs 1 unit -GI and IR following-->CTA showed active bleed but colonscopy now negative-- advanced to clears and monitoring overnight -receiving ROSALIA as outpt for anemia of CKD and will continue # MBD of CKD -renal diet when taking po #HTN -tends to run high at baseline and resistant to more meds- reasonable control currently bibiana in light of GI bleed #CAD s/p stent- asa held Elizabet Marquez MD [facility] pager [phone] 07/13/18 18:33 Subjective: Feels better- weak last night with colonscopy prep. No bleeding noted on scope. Taking clears now. No abd pain, dizziness, sob. wants to wait and do HD tomorrow. Objective: Vital Signs Temp Pulse Resp BP Pulse Ox 36.9 C 78 16 160/80 H 95 07/13/18 16:55 07/13/18 16:55 07/13/18 16:55 07/13/18 16:55 07/13/18 16:55 Laboratory Results 07/13/18 03:10 07/13/18 03:10 07/12/18 07/13/18 07/14/18 05:59 05:59 05:59 Intake Total 740 200 Balance 740 200 Physical Exam - Physical Exam General Appearance: alert, no apparent distress EENT: other (mmm) Neck: supple Cardiac/Chest: regular rate, rhythm Extremities: other (no edema, LUE AVF) Neuro/Psych: alert, oriented x 3 ICD10 Worksheet Patient Problems: Problems Problem Status Onset Anemia Acute Coronary arteriosclerosis after percutaneous transluminal coronary angioplasty ( PTCA) Acute End stage renal disease Acute GI bleeding Acute Hypotension Acute Lower GI bleed Acute Non-ST elevation (NSTEMI) myocardial infarction Acute Non-ST elevation myocardial infarction (NSTEMI) due to mismatch of myocardial oxygen supply and demand Acute Rectal bleeding Acute Renal failure Acute
--- NOTE | 2018-07-13 18:42 | GCON ---
CHIEF COMPLAINT: Hematochezia. HISTORY OF PRESENT ILLNESS: This 78-year-old gentleman has a complicated medical history. He has had a history of recurrent gastrointestinal bleeding from a diverticular bleed in the past and has had a previous subtotal colectomy. He has a history of end-stage renal disease, coronary disease, hypertension. He had undergone a subtotal colectomy about 2 years ago. At that time, he was having significant recurrent bleeding and undergone a visceral angiogram with a finding of sigmoid diverticular bleed. He underwent a partial colectomy with a temporary diverting ileostomy. He had subsequent revision of diverting colostomy. He also suffered an [place] and had an extensive rehab post [place]. He was doing well without any recurrent problems of bleeding until yesterday. He noticed bright red blood per rectum, describes a large amount, it happened several times at home. He had no associated lightheadedness or dizziness. He does have a history of hypertension. He also is on hemodialysis for end-stage kidney disease from his hypertension. He receives hemodialysis on Saturday, Saturday, and Saturday. He was hemodynamically stable on presentation to the hospital. He was transfused 1 unit of packed red blood cells. He has a normal hematocrit that runs about 30. Hemoglobin on admission was 7.5 with a hematocrit of 23.2. His platelets were also reported to be low at 122,000. Creatinine is elevated at 5.6 with a BUN of 35. He has had no associated abdominal pain or discomfort. He has had no nausea or vomiting. The patient has been hemodynamically stable. I was asked to see the patient for further evaluation. He takes chronic aspirin. He does not have a history of taking anticoagulation/blood thinners. PAST MEDICAL HISTORY: Remarkable for hypertension, end-stage renal disease, coronary disease status post [place] with previously placed 4 stents. He has a history of obstructive sleep apnea, on CPAP. Prior history of prostate cancer status post radiation treatment. PAST SURGICAL HISTORY: Remarkable for umbilical herniorrhaphy, inguinal herniorrhaphy, right total hip replacement, left HD fistula placement, subtotal colectomy, and temporary diverting ileostomy with revision. SOCIAL HISTORY: Nonsmoker, nondrinker. FAMILY HISTORY: Negative as it pertains to chief complaint. ALLERGIES: No known drug allergies. REVIEW OF SYSTEMS: Negative 10 systems other than mentioned in HPI. MEDICATIONS: Aspirin 81 mg, Tums, vitamin D, folic acid, gabapentin, lisinopril , Zaroxolyn, Norvasc. PHYSICAL EXAMINATION: VITAL SIGNS: Afebrile at 36.8, pulse 63, respiratory rate is 14, blood pressure 176/77, pulse ox 94%. GENERAL: A very pleasant gentleman, in no acute distress, lying in bed. HEENT: Normocephalic atraumatic EOMI neck. Neck is supple. Normocephalic and atraumatic. Mucous membranes are moist. LUNGS: Clear. CARDIAC EXAM: Normal S1, S2 without murmur. ABDOMEN: Was nontender. No hepatosplenomegaly. EXTREMITIES: Without clubbing, cyanosis, edema. SKIN: Warm, dry, intact. PSYCHIATRIC: Alert and oriented x3 with normal affect. LABORATORY DATA: Hematocrit was 30.6, on admission, dropped to 23.7 8.2. Serum chemistries: Serum sodium 138, potassium 5.0, chloride 102, CO2 of 30, BUN of 35, creatinine 5.6. IMPRESSION AND PLAN: An 78-year-old gentleman with known diverticular disease and diverticular bleed. He presents with hematochezia consistent with a lower gastrointestinal bleed. Given his history and comorbid disease, would recommend initially proceeding with an RBC tagged bleeding scan study to help localize site of bleeding. Consider IR consult with visceral angiography and intervention. Potential surgical consult pending bleeding scan and IR evaluation. We will follow with you. /[id number]/MODL MTDD
[2018-07-14 04:47] LABS: PLATELET COUNT 94 10^3/uL (150-400)
[2018-07-14] MEDS: ACETAMINOPHEN 325 MG TAB PO PRN (08:51)
[2018-07-14] MEDS: CHOLECALCIFEROL VIT D3 1,000 UNITS TAB PO SCH (08:51)
[2018-07-14] MEDS: NEPHROVITE FOLIC ACID/VIT B&C 1 TAB PO SCH (08:51)
[2018-07-14] MEDS ORDERED: EPOETIN ALFA 10,000 UNIT/ML VIAL SC SCH (09:00)
[2018-07-14] MEDS: METOLAZONE 5 MG TAB PO SCH (11:55)
[2018-07-14 11:57] VITALS: BP 166/81
--- NOTE | 2018-07-14 12:36 | SOAPPROG ---
[place] Progress Note Assessment/Plan: Assessment/Plan: 78 y/o M with h/o ESRD who presented with GIB. ESRD- [facility] MWF -HD today -may resume at home unit if discharged today or tomorrow GI bleed -he has history of diverticulosis requiring partial colectomy in past -was on ASA for CAD stent and currently held, resume per GI/cards rec's -received PRBCs 1 unit -GI and IR following-->CTA showed active bleed but colonscopy now negative -advancing diet -receiving ROSALIA as outpt for anemia of CKD and will continue MBD of CKD -renal diet when taking po HTN -will UF with HD as tolerated -usually runs high and will continue to titrate meds at outpt unit 07/14/18 12:35 Subjective: Hb stable today. Getting dialysis. Objective: Vital Signs Temp Pulse Resp BP Pulse Ox 36.9 C 75 14 166/81 H 96 07/14/18 11:57 07/14/18 11:57 07/14/18 11:57 07/14/18 11:57 07/14/18 11:57 Laboratory Results 07/14/18 04:02 07/14/18 04:02 07/13/18 07/14/18 07/15/18 05:59 05:59 05:59 Intake Total 740 1100 Balance 740 1100 Physical Exam - Physical Exam General Appearance: WD/WN, alert, no apparent distress EENT: PERRL/EOMI Neck: non-tender, full range of motion, supple Respiratory: lungs clear, normal breath sounds Abdomen: normal bowel sounds, non-tender, soft Skin: normal color, warm/dry Extremities: normal range of motion, non-tender Neuro/Psych: no motor/sensory deficits, alert ICD10 Worksheet Patient Problems: Problems Problem Status Onset Lower GI bleed Acute Anemia Acute Coronary arteriosclerosis after percutaneous transluminal coronary angioplasty ( PTCA) Acute End stage renal disease Acute GI bleeding Acute Hypotension Acute Non-ST elevation (NSTEMI) myocardial infarction Acute Non-ST elevation myocardial infarction (NSTEMI) due to mismatch of myocardial oxygen supply and demand Acute Rectal bleeding Acute Renal failure Acute
--- NOTE | 2018-07-14 13:17 | SOAPPROG ---
[place] Progress Note Assessment/Plan: Assessment: Diverticular bleed. Presumed Hepatic flexure based on RBC tagged study and CT Angiogram. Stable. No active bleeding at present. S/p transfusion of 2 units of PRBC. Plan: 1. Regular/Renal diet 2. Anticipate discharge later today or tomorrow. 3. If recurrent bleeding fist line therapy would be IR with visceral angiogram with intervention. 4. Please call with further questions 07/14/18 13:13 Subjective: CC: GI bleed Diverticular bleed. No recurrent signs or symptoms of bleeding. Anxious to go home. Objective: Vital Signs Temp Pulse Resp BP Pulse Ox 36.9 C 75 14 166/81 H 96 07/14/18 11:57 07/14/18 11:57 07/14/18 11:57 07/14/18 11:57 07/14/18 11:57 Laboratory Results 07/14/18 12:45 07/14/18 04:02 07/13/18 07/14/18 07/15/18 05:59 05:59 05:59 Intake Total 740 1100 Balance 740 1100 Generic Name Dose Route Start Last Admin Trade Name Freq PRN Reason Stop Dose Admin Acetaminophen 650 mg 07/11/18 22:14 07/14/18 08:51 Tylenol PO 01/07/19 22:13 650 mg Q4HRS PRN Administration Pain, Mild/Fever, Can Take PO Amlodipine Besylate 10 mg 07/13/18 10:30 07/14/18 11:55 Norvasc PO 01/09/19 10:29 10 mg DAILY JACKSON Administration Calcium Carbonate 500 mg 07/12/18 00:43 07/12/18 01:00 Tums PO 01/08/19 00:42 500 mg HS PRN Administration GERD Cholecalciferol 1,000 units 07/12/18 09:00 07/14/18 08:51 Vitamin D PO 01/08/19 08:59 1,000 units DAILY JACKSON Administration Epoetin Nam 10,000 unit 07/14/18 09:00 07/14/18 12:35 Procrit SC 01/10/19 08:59 10,000 unit Q7D JACKSON Administration Gabapentin 200 mg 07/12/18 00:43 07/12/18 01:00 Neurontin PO 01/08/19 00:42 200 mg HS PRN Administration Pain Hydralazine HCl 10 mg 07/13/18 10:22 Apresoline IVP 01/09/19 10:21 Q6 PRN SBP>160 Metolazone 5 mg 07/13/18 10:30 07/14/18 11:55 Zaroxolyn PO 01/09/19 10:29 5 mg DAILY JACKSON Administration Ondansetron HCl 4 mg 07/11/18 22:14 Zofran IVP 01/07/19 22:13 Q4HRS PRN Nausea/Vomiting, Can't Take PO Ondansetron HCl 4 mg 07/11/18 22:14 Zofran Odt PO 01/07/19 22:13 Q4HRS PRN Nausea/Vomiting, Use 1st Vitamin B Complex/Vit C/Folic Acid 1 each 07/12/18 09:00 07/14/18 08:51 Patience-Arcadio PO 01/08/19 08:59 1 each DAILY JACKSON Administration Discontinued Medications Generic Name Dose Route Start Last Admin Trade Name Freq PRN Reason Stop Dose Admin Albuterol 3 ml 07/13/18 07:59 Proventil Neb IH 07/13/18 08:59 Q10M PRN PACU, Wheezing Dexamethasone 4 mg 07/13/18 07:59 Decadron Injection IVP 07/13/18 08:59 ONCE PRN PACU, Nausea/Vomiting Esmolol HCl Confirm 07/13/18 08:27 Brevibloc Administered 07/13/18 08:28 Dose 100 mg IV .STK-MED ONE Heparin Sodium (Porcine) Confirm 07/12/18 11:05 Heparin Lock Flush Administered 07/12/18 11:06 Dose 500 unit IVP .STK-MED ONE Heparin Sodium (Porcine) Confirm 07/12/18 18:53 Heparin Flush 2,000 Unit/Ns 1,000 Ml Administered 07/12/18 18:54 Dose 4,000 unit .ROUTE .STK-MED ONE Sodium Chloride 1,000 mls @ 0 mls/hr 07/13/18 07:47 07/13/18 07:53 Ns IV 07/13/18 07:48 1,000 mls ONCE ONE Administration As Directed Iopamidol Confirm 07/12/18 15:43 Isovue-370 Administered 07/12/18 15:44 Dose 100 ml IV .STK-MED ONE Iopamidol Confirm 07/12/18 18:53 Isovue-300 Administered 07/12/18 18:54 Dose 200 ml .ROUTE .STK-MED ONE Naloxone HCl 0.1 mg 07/13/18 07:59 Narcan IVP 07/13/18 08:59 Q2M PRN PACU Resp Rate <10/min Ondansetron HCl 2 - 4 mg 07/13/18 07:59 Zofran IVP 07/13/18 08:59 Q10M PRN PACU, Nausea/Vomiting Polyethylene Glycol/Electrolytes 4,000 ml 07/12/18 14:27 07/12/18 15:06 Gavilyte - G PO 07/12/18 14:28 4,000 ml ONCE ONE Administration Propofol Confirm 07/13/18 08:04 Diprivan 10 Mg/Ml (Premix) Administered 07/13/18 08:05 Dose 500 mg IV .STK-MED ONE Physical Exam - Physical Exam General Appearance: alert, no apparent distress Respiratory: lungs clear, normal breath sounds Cardiac/Chest: regular rate, rhythm Abdomen: normal bowel sounds, non-tender, soft Skin: normal color, warm/dry Neuro/Psych: alert, normal mood/affect, oriented x 3 ICD10 Worksheet Patient Problems: Problems Problem Status Onset Lower GI bleed Acute Anemia Acute Coronary arteriosclerosis after percutaneous transluminal coronary angioplasty ( PTCA) Acute End stage renal disease Acute GI bleeding Acute Hypotension Acute Non-ST elevation (NSTEMI) myocardial infarction Acute Non-ST elevation myocardial infarction (NSTEMI) due to mismatch of myocardial oxygen supply and demand Acute Rectal bleeding Acute Renal failure Acute
--- NOTE | 2018-07-14 13:58 | ASMTDCNOTE ---
Case Management Discharge Discharge Order Complete? Answers: Yes Patient to Obtain Answers: Independently Medications Transportation Arranged Answers: Family/Friends Discharge Comments Notes: CM met with pt to discuss discharge plans. Pt reports he lives independently and does not have any needs at discharge. Pt reports he takes the bus to dialysis. Pt reports he is independent and does not need any servces at this time. Pt reports he does not have a PCP at this time but denied any information to obtain PCP. Plan: independent Date Signed: 07/14/2018 01:57 PM Electronically Signed By:HARRY Sawyer
--- NOTE | 2018-07-14 14:01 | ASDISCHSUM ---
Discharge Information Plan Status:Home with No Needs Medically Cleared to Leave:07/13/2018 Discharge Date:07/13/2018 CM D/C Disposition:Home, Routine, Self-Care ADT D/C Disposition:Home, Routine, Self-Care Projected Discharge Date:07/13/2018 Transportation at D/C: Discharge Delay Reason: Follow-Up Date:07/13/2018 Discharge Slot: Final Diagnosis: Placement Information Patient Contact Information Contact Name:OUMAR Relationship:Nick Address: Work Phone: City:[employer] [employer] [place] [employer] Alternate Phone: [facility] [address]/[place] Code:ELISE Email: Financial Information Financial Class:Medicare Primary Plan Desc:MEDICARE INPATIENT Primary Plan Number:[id number] Secondary Plan Desc:[employer] Secondary Plan Number:[id number] Assessment Information LACE LACE Length of stay for Answers: 3 days current admission Acuity / Level of Answers: Yes Care: Did the patient have an inpatient admission? Comorbidities - select Answers: Coronary Artery Disease all that apply Moderate or severe liver or renal disease Previous myocardial infarction Other Notes: HTN # of Emergency department Answers: 1-2 visits in the last 6 months Score: 15 Date Signed: 07/14/2018 02:00 PM Electronically Signed By:HARRY Sawyer Case Management Discharge Plan Note Case Management Discharge Discharge Order Complete? Answers: Yes Patient to Obtain Answers: Independently Medications Transportation Arranged Answers: Family/Friends Discharge Comments Notes: CM met with pt to discuss discharge plans. Pt reports he lives independently and does not have any needs at discharge. Pt reports he takes the bus to dialysis. Pt reports he is independent and does not need any servces at this time. Pt reports he does not have a PCP at this time but denied any information to obtain PCP. Plan: independent Date Signed: 07/14/2018 01:57 PM Electronically Signed By:HARRY Sawyer Intervention Information
--- NOTE | 2018-07-14 17:14 | GDS ---
DISCHARGE DIAGNOSES: 1. Acute diverticular bleed. 2. End-stage renal disease. 3. Acute blood loss anemia. 4. History of sigmoid colectomy from previous diverticular bleed. 5. Coronary disease status post stent. 6. Hypertension. HISTORY: The patient is an 78-year-old male with an extensive history in 2016 of recurrent diverticu lar bleeds eventually resulting in sigmoid colectomy. He has not had any recurrent bleeding since th at time. He now represents to the hospital with again lower GI bleed. A tagged red blood cell scan was positive at the hepatic flexure. Interventional Radiology was consulted. CT angiogram was perfo rmed which also confirms bleeding at the same location. At that point, the bleeding spontaneously st opped on its own. He underwent colonoscopy which was negative for any alternative source of bleeding , and he does have extensive diverticulosis throughout his remaining colon. Since he spontaneously s topped bleeding, he can go home. However, if the diverticular bleeding was to recur and since his bl eeding location has already been localized, if he has recurrence of bleed the first-line therapies is to go to Interventional Radiology for embolization. He did receive 3 units of blood during this hos pitalization and blood transfusion. Nephrology saw him and provided inpatient dialysis on the day of discharge. His aspirin was held, but he has a history of extensive coronary artery disease with pre vious stents and so aspirin should be restarted in 1 week if he does not have any further bleeding. DISCHARGE MEDICATIONS: Please see computer record for full detailed list. There were no new medicat ions given at time of hospital discharge. ADDITIONAL DISCHARGE INSTRUCTIONS: 1. Hold aspirin for 1 week and then okay to resume. 2. If recurrence of GI bleeding, recommend first-line therapy to Interventional Radiology for emboli zation as bleeding diverticula have been localized in the transverse colon at the hepatic flexure. Greater than 30 minutes' time was spent in arranging this discharge. Patient seen and examined by me on the day of discharge. /[id number]/MODL
== END 2018-07-14 15:15 | disposition home or self-care (01) | DRG 377 ==
LOC: F2W 22:09 → OBSVTOIN 07-12 16:31
PROVIDERS: ADMIT Internal Medicine; ATTEND Internal Medicine
PROC: 30233N1 Transfusion of Nonautologous Red Blood Cells into Peripheral Vein, Percutaneous Approach (ICD-10-PCS; 2018-07-12)
PROC: 0DBH8ZX Excision of Cecum, Via Natural or Artificial Opening Endoscopic, Diagnostic (ICD-10-PCS; principal; 2018-07-13 08:45)
PROC: 0DB68ZX Excision of Stomach, Via Natural or Artificial Opening Endoscopic, Diagnostic (ICD-10-PCS; principal; 2018-07-13 08:45)
PROC: 5A1D70Z Performance of Urinary Filtration, Intermittent, Less than 6 Hours Per Day (ICD-10-PCS; 2018-07-14)
DX: K57.33 Diverticulitis of large intestine without perforation or abscess with bleeding (principal); I12.0 Hypertensive chronic kidney disease with stage 5 chronic kidney disease or end stage renal disease; N18.6 End stage renal disease; D62 Acute posthemorrhagic anemia; I25.10 Atherosclerotic heart disease of native coronary artery without angina pectoris; G47.33 Obstructive sleep apnea (adult) (pediatric); I25.2 Old myocardial infarction; Z95.5 Presence of coronary angioplasty implant and graft; Z85.46 Personal history of malignant neoplasm of prostate
CPT/HCPCS: 97161-GP; 97166-GO; A9560; G0378; G8978-GP-CJ; G8979-GP-CI; G8987-GO-CI; G8988-GO-CI; G8989-GO-CI; J0885; J1642; J1644; J2704; P9016; Q9967

== ENCOUNTER 2018-10-17 08:25 | Inpatient (IN) | payer OTHER ==
--- NOTE | 2018-10-17 08:43 | EDPHY ---
H & P Stated Complaint: cough/wheezing since saturday Time Seen by Provider: 10/17/18 08:41 - Personal History Current Tetanus Diphtheria and Acellular Pertussis (TDAP): Yes - Medical/Surgical History Hx Asthma: No Hx Chronic Respiratory Disease: No Hx Diabetes: No Hx Cardiac Disease: Yes Hx Renal Disease: Yes Hx Cirrhosis: No Hx Alcoholism: No Hx HIV/AIDS: No Hx Splenectomy or Spleen Trauma: No Other PMH: dialysis, sleep apnea,KIDNEY DISEASE L ARM FISTULA, COLON SURGERY FOR BLEEDING DIVERTICULUM, [place],STENTS, HIP SURGERY. HTN - Social History Smoking Status: Never smoked Constitutional: Initial Vital Signs Temperature (C) 36.8 C 10/17/18 08:32 Heart Rate 96 10/17/18 08:32 Respiratory Rate 20 10/17/18 08:32 Blood Pressure 201/101 H 10/17/18 08:32 O2 Sat (%) 93 10/17/18 08:32 O2 Delivery Mode Room Air Allergies/Adverse Reactions: No Known Allergies Allergy (Verified 10/17/18 08:31) Home Medications: Medication Instructions Recorded Aspirin [Aspirin 81mg (*)] 81 mg PO DAILY 07/11/18 Calcium Carbonate [Tums 500MG (*)] 500 mg PO HS 07/11/18 Cholecalciferol Vit D3 [Vitamin D3 1,000 units PO DAILY 07/11/18 (*)] Folic Acid/Vit B Com W/C 1 each PO DAILY 07/11/18 [[facility]] Gabapentin [Neurontin 100 MG (*)] 200 mg PO HS 07/11/18 Herbals/Supplements -Info Only 1 ea PO DAILY 07/11/18 Lisinopril [Zestril 40 mg (*)] 40 mg PO DAILY 07/11/18 Metolazone [Zaroxolyn 5MG (*)] 5 mg PO DAILY 07/11/18 amLODIPine BESYLATE [Norvasc 10 mg 10 mg PO DAILY 07/11/18 (*)] Medical Decision Making ED Course/Re-evaluation: CHIEF COMPLAINT: HISTORY OF PRESENT ILLNESS: The patient is an 78 y/o male with a history of cardiac stents and CKD on dialysis complaining of a cough with sputum since Saturday, 3 days ago. No fever, headache, body aches, lightheadedness, chest pain, heart palpitations , shortness of breath, abdominal pain, urinary or bowel complaints, numbness, paresthesias. REVIEW OF SYSTEMS: A 10 point review of systems was performed and is negative with the exception of the elements mentioned in the history of present illness. PHYSICAL EXAM: HR, BP, O2 Sat, RR. Temp noted General Appearance: Alert, well hydrated, appropriate, and non-toxic appearing. Head: Atraumatic without scalp tenderness or obvious injury Eyes: Pupils equal, round, reactive to light and accommodation, EOMI, no trauma , no injection. Ears: Clear bilaterally, no perforation, normal landmarks Nose: Atraumatic, no rhinorrhea, clear. Throat: There is no erythema or exudates, no lesions, normal tonsils, mucus membranes moist. Neck: Supple, 2+ carotid upstroke, nontender, no lymphadenopathy. Respiratory: No retractions, no distress, no wheezes, and no accessory muscle use. Lungs are clear to auscultation bilaterally. Cardiovascular: Regular rate and rhythm, no murmurs, rubs, or gallops. Bilateral carotid, radial, dorsalis pedis, and posterior tibial pulses intact. Good capillary refill all extremities. Gastrointestinal: Abdomen is soft, nontender, non-distended, no masses, no rebound, no guarding, no peritoneal signs. Musculoskeletal: Normal active ROM of all extremities, atraumatic. Neurological: Alert, appropriate, and interactive. The patient has normal DTRs and non-focal cranial nerves, motor, sensory, and cerebellar exam. Skin: No rashes, good turgor, no nodules on palpation. Past medical history: CKD on dialysis, sleep apnea, VA, hypertension Past surgical history: Colon surgery, stents, hip surgery Family history: Denies Social history: Lives in [place], retired, single DIAGNOSTICS/PROCEDURES/CRITICAL CARE TIME: DIFFERENTIAL DIAGNOSIS: MEDICAL DECISION MAKING: Departure - Departure Referrals: NONE *PRIMARY CARE P,. [Primary Care Provider] - As per Instructions Report Scribed for: Jame Mcfadden Report Scribed by: Julia Souza Date of Report: 10/17/18 Time of Report: 08:43
[2018-10-17] MEDS ORDERED: methylPREDNISolone SOD SUCC 125 MG/2 ML VIAL IVP ONE (08:53)
[2018-10-17] MEDS ORDERED: IPRATROPIUM/ALBUTEROL 3 ML DEYVIAL IH ONE (08:53)
--- NOTE | 2018-10-17 08:53 | EDPHY ---
H & P Stated Complaint: cough/wheezing since saturday Time Seen by Provider: 10/17/18 08:41 HPI/ROS: HPI: This is an 78-year-old male who presents with Chief Complaint: cough/wheezing since Saturday Location: chest Quality: Cough, wheezing Duration: 4 days Signs and Symptoms: no shortness of breath at rest, no shortness of breath on exertion, + productive cough, no chest pain, no palpitations, no lower extremity edema,+ wheezing, no orthopnea, no paroxysmal nocturnal dyspnea, no fever, no injury/trauma, no hemoptysis, no carpal pedal spasms Timing: Worsening Severity: Moderate Context: Patient has end-stage renal disease, left arm fistula with hemodialysis, [facility], Saturday, Saturday, Saturday presents with 4 day history of productive cough, nasal congestion, green nasal discharge and expiratory wheezing. Patient reports that he is due to go to dialysis today at 12 noon. He did receive his influenza vaccine this year. Denies any fever, sore throat, neck stiffness. Modifying Factors: None Comment: ROS: A comprehensive 10 system review of systems is otherwise negative aside from elements mentioned in the history of present illness. MEDICAL/SURGICAL/SOCIAL HISTORY: Medical history: dialysis, sleep apnea, KIDNEY DISEASE, [place], HTN Surgical history: L ARM FISTULA, COLON SURGERY FOR BLEEDING DIVERTICULUM, CARDIAC STENTS, HIP SURGERY Social history: Never smoked. CONSTITUTIONAL: Ill but nontoxic-appearing elderly black male, awake and alert , no obvious distress HEENT: Atraumatic and normocephalic, PERRL, EOMI. Nares patent; no rhinorrhea; no nasal mucosal edema. Tympanic membranes clear. Oropharynx clear, no exudate and moist pink mucosa. Airway patent. No lymphadenopathy. No meningismus. Cardiovascular: Normal S1/S2, regular rate, regular rhythm, without murmur rub or gallop. PULMONARY/CHEST: Symmetrical and nontender. Expiratory wheezing bilaterally. Good air movement. No accessory muscle usage. Productive cough noted. ABDOMEN: Soft, nondistended, nontender, no rebound, no guarding, no peritoneal signs, no masses or organomegaly. No CVAT. EXTREMITIES: 2/2 pulses, strength 5/5, left arm fistula noted. no deformities , no clubbing, no cyanosis or edema. NEUROLOGICAL: no focal neuro deficits. GCS 15. SKIN: Warm and dry, no erythema. no rash. Good capillary refill. Source: Patient Exam Limitations: No limitations - Personal History Current Tetanus Diphtheria and Acellular Pertussis (TDAP): Yes - Medical/Surgical History Hx Asthma: No Hx Chronic Respiratory Disease: No Hx Diabetes: No Hx Cardiac Disease: Yes Hx Renal Disease: Yes Hx Cirrhosis: No Hx Alcoholism: No Hx HIV/AIDS: No Hx Splenectomy or Spleen Trauma: No Other PMH: dialysis, sleep apnea,KIDNEY DISEASE L ARM FISTULA, COLON SURGERY FOR BLEEDING DIVERTICULUM, [place],STENTS, HIP SURGERY. HTN - Social History Smoking Status: Never smoked Constitutional: Initial Vital Signs Temperature (C) 36.8 C 10/17/18 08:32 Heart Rate 96 10/17/18 08:32 Respiratory Rate 20 10/17/18 08:32 Blood Pressure 201/101 H 10/17/18 08:32 O2 Sat (%) 93 10/17/18 08:32 O2 Delivery Mode Room Air Allergies/Adverse Reactions: No Known Allergies Allergy (Verified 10/17/18 08:31) Home Medications: Medication Instructions Recorded Aspirin [Aspirin 81mg (*)] 81 mg PO DAILY 07/11/18 Calcium Carbonate [Tums 500MG (*)] 500 mg PO HS 07/11/18 Cholecalciferol Vit D3 [Vitamin D3 1,000 units PO DAILY 07/11/18 (*)] Folic Acid/Vit B Com W/C 1 each PO DAILY 07/11/18 [[facility]] Gabapentin [Neurontin 100 MG (*)] 200 mg PO HS 07/11/18 Herbals/Supplements -Info Only 1 ea PO DAILY 07/11/18 Lisinopril [Zestril 40 mg (*)] 40 mg PO DAILY 07/11/18 Metolazone [Zaroxolyn 5MG (*)] 5 mg PO DAILY 07/11/18 amLODIPine BESYLATE [Norvasc 10 mg 10 mg PO DAILY 07/11/18 (*)] Medical Decision Making - Diagnostics Imaging Results: Imaging Impressions Chest X-Ray 10/17/18 08:53 Impression: More pronounced cardiac silhouette enlargement than on 07/31/2016 with mild pulmonary venous congestion and equivocal trace pleural fluid at the right costophrenic angle, with no convincing focal infiltrate. The above features could represent a combination of early cardiac decompensation and/or perihilar bronchitis. ED Course/Re-evaluation: Vital signs reviewed and show elevated blood pressure and O2 sats 93-99% on room air. IV access, laboratory [id number], blood cultures, lactic acid, respiratory pathogen panel, chest x-ray ordered Patient given IV Solu-Medrol 125 mg and DuoNeb 0918: Chest x-ray my read via PAC shows worsening right middle lobe and right lower lobe concerning for early community-acquired pneumonia IV Rocephin and Zithromax ordered 1013: Good. WBC 3 K, H&H 10.5/33.1, platelets 89 K, lactic acid 1.1, creatinine 9.6, BUN 54 CURB 65 Score= 3; severe risk. 1028: ED decision to consult for admission. Spoke with hospitalist, Sommer, who kindly agrees to admit patient to Dr. Craig. Spoke with Nephrology, Dr. Cardoza, who kindly agrees to consult on the patient. This patient was seen under the supervision of my secondary supervising physician. I evaluated care for this patient with attending. Discussed this patient with Dr. Mcfadden. Differential Diagnosis: Shortness of breath including but not limited to pulmonary infectious process, COPD, asthma, pulmonary embolus and congestive heart failure. - Data Points Laboratory Results: Laboratory Results 10/17/18 09:06 10/17/18 09:06 10/17/18 10/17/18 10/17/18 09:20 09:06 09:06 WBC 3.37 10^3/uL L 10^3/uL (3.80-9.50) RBC 3.61 10^6/uL L 10^6/uL (4.40-6.38) Hgb 10.5 g/dL L g/dL (13.7-17.5) Hct 33.1 % L % (40.0-51.0) MCV 91.7 fL fL (81.5-99.8) MCH 29.1 pg pg (27.9-34.1) MCHC 31.7 g/dL L g/dL (32.4-36.7) RDW 15.9 % H % (11.5-15.2) Plt Count 89 10^3/uL L 10^3/uL (150-400) MPV 10.7 fL fL (8.7-11.7) Neut % (Auto) Not Reported Lymph % (Auto) Not Reported Bullock % (Auto) Not Reported Eos % (Auto) Not Reported Baso % (Auto) Not Reported Nucleat RBC Rel Count Not Reported Absolute Neuts (auto) Not Reported Absolute Lymphs (auto) Not Reported Absolute Monos (auto) Not Reported Absolute Eos (auto) Not Reported Absolute Basos (auto) Not Reported Absolute Nucleated RBC Not Reported Immature Gran % Not Reported Seg Neutrophils % 58.0 % % Band Neutrophils % 1.0 % % Lymphocytes % 27.0 % % Monocytes % 8.0 % % Eosinophils % 6.0 % % Basophils % 0.0 % % Metamyelocytes % 0.0 % % Myelocytes % 0.0 % % Promyelocytes % 0.0 % % Blast Cells % 0.0 % % Immature Gran # Not Reported Absolute Seg Neuts 1.95 10^3/uL 10^3/uL (1.70-6.50) Absolute Band Neuts 0.03 10^3/uL 10^3/uL (0.00-0.70) Absolute Lymphocytes 0.91 10^3/uL L 10^3/uL (1.00-3.00) Absolute Monocytes 0.27 10^3/uL L 10^3/uL (0.30-0.80) Absolute Eosinophils 0.20 10^3/uL 10^3/uL (0.03-0.40) Absolute Basophils 0.00 10^3/uL L 10^3/uL (0.02-0.10) Absolute Metamyelocyte 0.00 10^3/mL 10^3/mL (0.00-0.00) Absolute Myelocytes 0.00 10^3/mL 10^3/mL (0.00-0.00) Absolute Promyelocytes 0.00 10^3/uL 10^3/uL (0.00-0.00) Absolute Plasma Cells 0.00 10^3/uL 10^3/uL (0.00-0.00) Absolute Blast Cells 0.00 10^3/uL 10^3/uL (0.00-0.00) Plasma Cells % 0.0 % % Platelet Estimate DECREASED L (ADEQ) Hypochromasia 1+ H VBG Lactic Acid 1.1 mmol/L mmol/L (0.7-2.1) Sodium 136 mEq/L mEq/L (135-145) Potassium 4.4 mEq/L mEq/L (3.5-5.2) Chloride 97 mEq/L mEq/L (97-110) Carbon Dioxide 24 mEq/l mEq/l (22-31) Anion Gap 15 mEq/L H mEq/L (6-14) BUN 54 mg/dL H mg/dL (7-23) Creatinine 9.6 mg/dL H* mg/dL (0.7-1.3) Estimated GFR 5 Glucose 116 mg/dL H mg/dL (70-100) Calcium 8.3 mg/dL L mg/dL (8.5-10.4) NT-Pro-B Natriuret Pep 03980 pg/mL H pg/mL (0-450) Medications Given: Ceftriaxone Sodium/Dextrose (Rocephin 1 Gm (Premix)) 50 mls @ 100 mls/hr IV EDNOW ONE PRN Reason: Protocol Stop: 10/17/18 10:55 Last Admin: 10/17/18 10:40 Dose: 50 mls Discontinued Medications Albuterol/Ipratropium (Duoneb) 3 ml IH EDNOW ONE Stop: 10/17/18 08:54 Last Admin: 10/17/18 09:04 Dose: 3 ml Methylprednisolone Sodium Succinate (Solu-Medrol) 125 mg IVP EDNOW ONE Stop: 10/17/18 08:54 Last Admin: 10/17/18 09:21 Dose: 125 mg Departure - Departure Disposition: [facility] Acute Clinical Impression: ESRD on hemodialysis, Hypertension due to end stage renal disease on dialysis Community acquired pneumonia Qualifiers: Laterality: right Lung location: middle lobe of lung Qualified Code(s): J18.1 - Lobar pneumonia, unspecified organism Condition: Fair
[2018-10-17 09:39] LABS: PLATELET COUNT 89 10^3/uL (150-400)
[2018-10-17] MEDS ORDERED: AZITHROMYCIN IV 500 MG in D5W 250 ML IV ONE (10:26)
[2018-10-17] MEDS ORDERED: IPRATROPIUM/ALBUTEROL 3 ML DEYVIAL ONE (11:14)
[2018-10-17] MEDS ORDERED: ONDANSETRON 4 MG/2 ML VIAL IVP PRN (12:27)
[2018-10-17] MEDS ORDERED: ONDANSETRON DISINTEGRATING 4 MG TAB PO PRN (12:27)
[2018-10-17] MEDS ORDERED: ALBUTEROL 60 PUFFS/8 GM MDI IH PRN (12:27)
--- NOTE | 2018-10-17 13:38 | PDGENHP ---
Addendum entered and electronically signed by Pinky Brooke NP 10/17/18 14:56 : Addendum: Procalcitonin 1.07 ng/ml. Studies indicate the threshold for procalcitonin for possible infection for those with ESRD vs healthy population is approximately 0.75 ng/ml which he has surpassed. Also, upon further research , RSV is one viral pathogen that can lead to CAP therefore ceftriaxone and azithromycin will be continued in AM. Original Note: <Pinky Brooke - Last Filed: 10/17/18 14:19> History and Physical - Chief Complaint 4-day productive cough - History of Present Illness HPI: 78 y/o w/ hx of ESRD, sleep apnea, HTN, CAD presents to ED by private vehicle w/ c/o 4-day productive cough, nasal drainage and expiratory wheezes. He receives dialysis MWF at [facility] and was supposed to receive treatment today but did not. He denies shortness of breath, chest pain, palpitations, nausea, vomiting, body aches, fatigue. Endorses a headache that comes and goes. CXR show more pronounced cardiac silhouette enlargement compared to 2016 w/ mild pulmonary venous congestion and trace pleural fluid at the right costophrenic angle w/ no convincing focal infiltrate. + for RSV. He is being admitted for treatment and monitoring. History Information - Allergies/Home Medication List Allergies/Adverse Reactions: No Known Allergies Allergy (Verified 10/17/18 08:31) Home Medications: Aspirin [Aspirin 81mg (*)] 81 mg PO DAILY 07/11/18 [Last Taken 10/17/18] Calcium Carbonate [Tums 500MG (*)] 500 mg PO HS 07/11/18 [Last Taken 10/16/18] Cholecalciferol Vit D3 [Vitamin D3 (*)] 1,000 units PO DAILY 07/11/18 [Last Taken 10/17/18] Folic Acid/Vit B Com W/C [Nephro-Arcadio Rx] 1 each PO DAILY 07/11/18 [Last Taken 10/17/18] Gabapentin [Neurontin 100 MG (*)] 200 mg PO HS 07/11/18 [Last Taken 10/16/18] Herbals/Supplements -Info Only 1 ea PO DAILY 07/11/18 [Last Taken 07/11/18] Lisinopril [Zestril 40 mg (*)] 40 mg PO DAILY 07/11/18 [Last Taken 10/17/18] Metolazone [Zaroxolyn 5MG (*)] 5 mg PO DAILY 07/11/18 [Last Taken 10/17/18] amLODIPine BESYLATE [Norvasc 10 mg (*)] 10 mg PO DAILY 07/11/18 [Last Taken 03/30] C/E/Zn/Cu/OM3/DHA/EPA/LUT/ZEAX [Preservision Areds 2 Softgel] 1 each PO DAILY [Last Taken 10/17/18] Ferrous Sulfate [Ferrous Sulf 325 MG (*)] 325 mg PO DAILY 10/17/18 [Last Taken 10/17/18] hydrALAZINE [Apresoline 25 mg (RX)] 25 mg PO BID 10/17/18 [Last Taken 10/17/18] I have personally reviewed and updated: family history, medical history, social history, surgical history - Past Medical History coronary artery disease, ESRD (Left arm fistula), hypertension, myocardial infarction Additional medical history: Sleep apnea w/ CPAP - Surgical History Reports: colectomy, coronary stent - Family History Positive for: non-pertinent Additional family history: CKD in his father. No hx of GI disease - Social History Smoking Status: Never smoked Alcohol Use: Rarely Drug Use: None Additional social history: Lives in [place] at a senior facility. . Son lives in [place] by [address]. 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 Review of Systems Review of Systems: ROS: 10pt was reviewed & negative except for what was stated in HPI & below Physical Exam Physical Exam: Lab data and imaging were reviewed. Case discussed with admitting physician, Dr. Refugio Craig WBC: 3.37 RBC: 3.61/10.5/33.1 Plt: 89 Lactic acid: 1.1 BUN/Cr: 54/9.6 BNP: 58,000 CXR: See HPI Resp panel PCR: +RSV Temp Pulse Resp BP Pulse Ox 37.0 C 88 20 196/89 H 93 10/17/18 13:21 10/17/18 13:21 10/17/18 13:21 10/17/18 13:21 10/17/18 13:21 Constitutional: appears nourished, not in pain, uncomfortable, other (Calm, cooperative pt. Mild distress but able to complete full sentences w/ no increased respiratory effort. Overweight.) Eyes: PERRL, anicteric sclera, EOMI Ears, Nose, Mouth, Throat: moist mucous membranes, hearing normal, ears appear normal, no oral mucosal ulcers Cardiovascular: regular rate and rhythym, no murmur, rub, or gallop, tachycardia , edema (1+ BLE pitting edema) Peripheral Pulses: 1+: dorsalis-pedis (R) (Radial 2+), dorsalis-pedis (L) ( Radial 2+) Respiratory: expiratory wheeze Gastrointestinal: normoactive bowel sounds, soft, non-tender abdomen, no palpable masses Genitourinary: no bladder fullness, no bladder tenderness, other (Receives dialysis MWF. Produces little urine.) Skin: warm, normal color, no rashes or abrasions, no fluctuance, no induration, other (Left arm fistula - "thrill" felt, bruit ascultated), No mottled Musculoskeletal: full muscle strength, no muscle tenderness, normal joint ROM, no joint effusions Neurologic: AAOx3, sensation intact bilaterally, CN II-XII Intact Psychiatric: interacting appropriately, not anxious, not encephalopathic, thought process linear Lymph, Heme, Immunologic: no cervical LAD, no supraclavicular LAD Lab Data & Imaging Review 10/17/18 09:06 10/17/18 09:06 WBC 3.37 10^3/uL (3.80-9.50) L 10/17/18 09:06 RBC 3.61 10^6/uL (4.40-6.38) L 10/17/18 09:06 Hgb 10.5 g/dL (13.7-17.5) L 10/17/18 09:06 Hct 33.1 % (40.0-51.0) L 10/17/18 09:06 MCV 91.7 fL (81.5-99.8) 10/17/18 09:06 MCH 29.1 pg (27.9-34.1) 10/17/18 09:06 MCHC 31.7 g/dL (32.4-36.7) L 10/17/18 09:06 RDW 15.9 % (11.5-15.2) H 10/17/18 09:06 Plt Count 89 10^3/uL (150-400) L 10/17/18 09:06 MPV 10.7 fL (8.7-11.7) 10/17/18 09:06 Neut % (Auto) Not Reported 10/17/18 09:06 Lymph % (Auto) Not Reported 10/17/18 09:06 Mccurtain % (Auto) Not Reported 10/17/18 09:06 Eos % (Auto) Not Reported 10/17/18 09:06 Baso % (Auto) Not Reported 10/17/18 09:06 Nucleat RBC Rel Count Not Reported 10/17/18 09:06 Absolute Neuts (auto) Not Reported 10/17/18 09:06 Absolute Lymphs (auto) Not Reported 10/17/18 09:06 Absolute Monos (auto) Not Reported 10/17/18 09:06 Absolute Eos (auto) Not Reported 10/17/18 09:06 Absolute Basos (auto) Not Reported 10/17/18 09:06 Absolute Nucleated RBC Not Reported 10/17/18 09:06 Immature Gran % Not Reported 10/17/18 09:06 Seg Neutrophils % 58.0 % 10/17/18 09:06 Band Neutrophils % 1.0 % 10/17/18 09:06 Lymphocytes % 27.0 % 10/17/18 09:06 Monocytes % 8.0 % 10/17/18 09:06 Eosinophils % 6.0 % 10/17/18 09:06 Basophils % 0.0 % 10/17/18 09:06 Metamyelocytes % 0.0 % 10/17/18 09:06 Myelocytes % 0.0 % 10/17/18 09:06 Promyelocytes % 0.0 % 10/17/18 09:06 Blast Cells % 0.0 % 10/17/18 09:06 Immature Gran # Not Reported 10/17/18 09:06 Absolute Seg Neuts 1.95 10^3/uL (1.70-6.50) 10/17/18 09:06 Absolute Band Neuts 0.03 10^3/uL (0.00-0.70) 10/17/18 09:06 Absolute Lymphocytes 0.91 10^3/uL (1.00-3.00) L 10/17/18 09:06 Absolute Monocytes 0.27 10^3/uL (0.30-0.80) L 10/17/18 09:06 Absolute Eosinophils 0.20 10^3/uL (0.03-0.40) 10/17/18 09:06 Absolute Basophils 0.00 10^3/uL (0.02-0.10) L 10/17/18 09:06 Absolute Metamyelocyte 0.00 10^3/mL (0.00-0.00) 10/17/18 09:06 Absolute Myelocytes 0.00 10^3/mL (0.00-0.00) 10/17/18 09:06 Absolute Promyelocytes 0.00 10^3/uL (0.00-0.00) 10/17/18 09:06 Absolute Plasma Cells 0.00 10^3/uL (0.00-0.00) 10/17/18 09:06 Absolute Blast Cells 0.00 10^3/uL (0.00-0.00) 10/17/18 09:06 Plasma Cells % 0.0 % 10/17/18 09:06 Platelet Estimate DECREASED (ADEQ) L 10/17/18 09:06 Hypochromasia 1+ H 10/17/18 09:06 VBG Lactic Acid 1.1 mmol/L (0.7-2.1) 10/17/18 09:20 Sodium 136 mEq/L (135-145) 10/17/18 09:06 Potassium 4.4 mEq/L (3.5-5.2) 10/17/18 09:06 Chloride 97 mEq/L (97-110) 10/17/18 09:06 Carbon Dioxide 24 mEq/l (22-31) 10/17/18 09:06 Anion Gap 15 mEq/L (6-14) H 10/17/18 09:06 BUN 54 mg/dL (7-23) H 10/17/18 09:06 Creatinine 9.6 mg/dL (0.7-1.3) H* 10/17/18 09:06 Estimated GFR 5 10/17/18 09:06 Glucose 116 mg/dL (70-100) H 10/17/18 09:06 Calcium 8.3 mg/dL (8.5-10.4) L 10/17/18 09:06 NT-Pro-B Natriuret Pep 87378 pg/mL (0-450) H 10/17/18 09:06 Procalcitonin 1.07 ng/mL (0.02-0.10) H 10/17/18 09:06 Assessment & Plan Plan: 78 y/o male with ESRD on MWF dialysis presents with 4 days worth of productive cough, nasal drainage, and expiratory wheezing. 1. Upper respiratory infection: + RSV. He was treated in the ED with Azithromycin + Ceftriaxone for suspected early PNA however I am not convinced it is early stages of PNA. He does not have an elevated white count, afebrile, lactic acid 1.1. Presenting to ED he was hypertensive (202/97), tachycardic (92 ) and dyspneic (22). Saturating on RA 93%. While evaluating the pt, BP was obtained and was 154/86. It is my inclination that he has an upper viral infection complicated by fluid overload and need for dialysis. -Blood cultures pending -Procalcitonin pending; this may come back elevated d/t ESRD. Analyze w/caution -Until symptoms or vitals change, I will not continue abx -Received duoneb + solu-medrol in ED; continue duoneb PRN -Treat symptoms conservatively w/non-pharmacologic and/or pharmacologic ( guaifenesin) -CBC/BMP in AM 2. ESRD w/ MWF Dialysis: He was scheduled for dialysis today but was unable to go. BNP 58,000 w/ bilateral lower extremity 1+ pitting. I spoke to Dr. Mcfadden re: his communication with Dr. Cardoza (licensed staff mft). Dr. Cardoza will consult while pt is in house and will evaluate the pt later today however mentioned since his potassium is unremarkable, may dialyze tomorrow instead of today. Pt has left arm fistula. 3. Hypertension: suspected d/t fluid overload 2/2 ESRD. Presenting to ED BP was 202/97 however while evaluating the pt myself, obtained BP which was 154/ 86. Continue to monitor. -On amlodipine, hydralazine, lisinopril, metolazone 4. CAD: on ASA Diet: Renal Code: Full VTE ppx: Heparin subq Dispo: Admit to inpatient <Ranjith Craig - Last Filed: 10/17/18 17:56> History and Physical - History of Present Illness Review of Systems Review of Systems: Physical Exam Physical Exam: Temp Pulse Resp BP Pulse Ox 36.6 C 86 15 177/88 H 96 10/17/18 14:40 10/17/18 17:42 10/17/18 17:42 10/17/18 14:40 10/17/18 17:42 O2 (L/minute) 2 Lab Data & Imaging Review 10/17/18 09:06 10/17/18 09:06 WBC 3.37 10^3/uL (3.80-9.50) L 10/17/18 09:06 RBC 3.61 10^6/uL (4.40-6.38) L 10/17/18 09:06 Hgb 10.5 g/dL (13.7-17.5) L 10/17/18 09:06 Hct 33.1 % (40.0-51.0) L 10/17/18 09:06 MCV 91.7 fL (81.5-99.8) 10/17/18 09:06 MCH 29.1 pg (27.9-34.1) 10/17/18 09:06 MCHC 31.7 g/dL (32.4-36.7) L 10/17/18 09:06 RDW 15.9 % (11.5-15.2) H 10/17/18 09:06 Plt Count 89 10^3/uL (150-400) L 10/17/18 09:06 MPV 10.7 fL (8.7-11.7) 10/17/18 09:06 Neut % (Auto) Not Reported 10/17/18 09:06 Lymph % (Auto) Not Reported 10/17/18 09:06 Mccurtain % (Auto) Not Reported 10/17/18 09:06 Eos % (Auto) Not Reported 10/17/18 09:06 Baso % (Auto) Not Reported 10/17/18 09:06 Nucleat RBC Rel Count Not Reported 10/17/18 09:06 Absolute Neuts (auto) Not Reported 10/17/18 09:06 Absolute Lymphs (auto) Not Reported 10/17/18 09:06 Absolute Monos (auto) Not Reported 10/17/18 09:06 Absolute Eos (auto) Not Reported 10/17/18 09:06 Absolute Basos (auto) Not Reported 10/17/18 09:06 Absolute Nucleated RBC Not Reported 10/17/18 09:06 Immature Gran % Not Reported 10/17/18 09:06 Seg Neutrophils % 58.0 % 10/17/18 09:06 Band Neutrophils % 1.0 % 10/17/18 09:06 Lymphocytes % 27.0 % 10/17/18 09:06 Monocytes % 8.0 % 10/17/18 09:06 Eosinophils % 6.0 % 10/17/18 09:06 Basophils % 0.0 % 10/17/18 09:06 Metamyelocytes % 0.0 % 10/17/18 09:06 Myelocytes % 0.0 % 10/17/18 09:06 Promyelocytes % 0.0 % 10/17/18 09:06 Blast Cells % 0.0 % 10/17/18 09:06 Immature Gran # Not Reported 10/17/18 09:06 Absolute Seg Neuts 1.95 10^3/uL (1.70-6.50) 10/17/18 09:06 Absolute Band Neuts 0.03 10^3/uL (0.00-0.70) 10/17/18 09:06 Absolute Lymphocytes 0.91 10^3/uL (1.00-3.00) L 10/17/18 09:06 Absolute Monocytes 0.27 10^3/uL (0.30-0.80) L 10/17/18 09:06 Absolute Eosinophils 0.20 10^3/uL (0.03-0.40) 10/17/18 09:06 Absolute Basophils 0.00 10^3/uL (0.02-0.10) L 10/17/18 09:06 Absolute Metamyelocyte 0.00 10^3/mL (0.00-0.00) 10/17/18 09:06 Absolute Myelocytes 0.00 10^3/mL (0.00-0.00) 10/17/18 09:06 Absolute Promyelocytes 0.00 10^3/uL (0.00-0.00) 10/17/18 09:06 Absolute Plasma Cells 0.00 10^3/uL (0.00-0.00) 10/17/18 09:06 Absolute Blast Cells 0.00 10^3/uL (0.00-0.00) 10/17/18 09:06 Plasma Cells % 0.0 % 10/17/18 09:06 Platelet Estimate DECREASED (ADEQ) L 10/17/18 09:06 Hypochromasia 1+ H 10/17/18 09:06 VBG Lactic Acid 1.1 mmol/L (0.7-2.1) 10/17/18 09:20 Sodium 136 mEq/L (135-145) 10/17/18 09:06 Potassium 4.4 mEq/L (3.5-5.2) 10/17/18 09:06 Chloride 97 mEq/L (97-110) 10/17/18 09:06 Carbon Dioxide 24 mEq/l (22-31) 10/17/18 09:06 Anion Gap 15 mEq/L (6-14) H 10/17/18 09:06 BUN 54 mg/dL (7-23) H 10/17/18 09:06 Creatinine 9.6 mg/dL (0.7-1.3) H* 10/17/18 09:06 Estimated GFR 5 10/17/18 09:06 Glucose 116 mg/dL (70-100) H 10/17/18 09:06 Calcium 8.3 mg/dL (8.5-10.4) L 10/17/18 09:06 NT-Pro-B Natriuret Pep 75085 pg/mL (0-450) H 10/17/18 09:06 Procalcitonin 1.07 ng/mL (0.02-0.10) H 10/17/18 09:06 Assessment & Plan Assessment: Community acquired pneumonia (Acute) ESRD on hemodialysis (Acute) Hypertension due to end stage renal disease on dialysis (Acute) Plan: Chart reviewed, patient personally examined, and case discussed with Marsha Brooke NP. I agree with her plan as outlined above. Please see separate note for additional details.
[2018-10-17] MEDS ORDERED: IPRATROPIUM/ALBUTEROL 3 ML DEYVIAL IH PRN (13:53)
[2018-10-17] MEDS: hydrALAZINE 25 MG TAB PO SCH ×2 (15:45→21:11)
--- NOTE | 2018-10-17 16:00 | ASMTCMCOM ---
CM Note CM Note Notes: Reviewed chart. Pt presented to the Emergency Department for cough and wheezing x several days, positive for RSV. History includes ESRD with dialysis MWF, sleep apnea, PR, HTN, CAD, diverticulitis. Pt is single and lives in [place]. Pt admitted for further evaluation and treatment. Discharge needs remain unclear at this time. CM will continue to follow. Discharge Plan: To be determined Date Signed: 10/17/2018 03:56 PM Electronically Signed By:Sylvia Peng RN
[2018-10-17] MEDS: HEPARIN 5,000 UNIT/0.5 ML INJ SC SCH ×2 (16:15→21:12)
--- NOTE | 2018-10-17 17:57 | HOSPPROG ---
Hospitalist Progress Note Assessment/Plan: Case discussed with Marsha Brooke QUALITATIVE FIELD COORDINATOR. Agree with her plan with the following exceptions: Briefly, 78yo M with ESRD on HD presents with 3-4 days of shortness of breath, productive cough, intermittent fevers. Reportedly hypoxic on arrival. He has been afebrile. Exam demonstrates wheezing and prolonged expiratory phase. Labs show mild leukopenia, procalcitonin of 1.07. He tested + for RSV. CXR shows cardiomegaly (increased from prior), mild pulmonary congestion, bronchitis but no focal infiltrate. Overall, his clinical picture is consistent with viral respiratory infection with possible superimposed bacterial process. Assessment/Plan: #RSV: Supportive care, IVF, scheduled bronchodilators, cough suppressants. #Suspected bacterial pneumonia: Will treat as CAP with ceftriaxone and azithromycin. #Acute hypoxia: Requiring 2L. Wean as able. #ESRD: Missed HD today due to feeling poorly. Dr Cardoza consulted. No need for urgent HD, will likely get spun tomorrow. #Elevated BNP: Not reliable in setting of renal failure but noted elevation. Consider TTE if respiratory status not improving. #Anemia of renal disease: Stable #Thrombocytopenic: Slightly lower than baseline, monitor. #CAD s/p stent: On aspirin #HTN: Elevated in setting of missing HD. Improved already. Continue home meds. VTE ppx: SQH Code: full Dispo: Admit under observation Objective: Vital Signs Temp Pulse Resp BP Pulse Ox 36.6 C 86 15 177/88 H 96 10/17/18 14:40 10/17/18 17:42 10/17/18 17:42 10/17/18 14:40 10/17/18 17:42 ICD10 Worksheet Patient Problems: Problems Problem Status Onset Community acquired pneumonia Acute ESRD on hemodialysis Acute Hypertension due to end stage renal disease on dialysis Acute Anemia Acute Coronary arteriosclerosis after percutaneous transluminal coronary angioplasty ( PTCA) Acute End stage renal disease Acute GI bleeding Acute Hypotension Acute Lower GI bleed Acute Non-ST elevation (NSTEMI) myocardial infarction Acute Non-ST elevation myocardial infarction (NSTEMI) due to mismatch of myocardial oxygen supply and demand Acute Rectal bleeding Acute Renal failure Acute
--- NOTE | 2018-10-17 18:20 | GCON ---
[f rep st] CONSULTATION NEPHROLOGY CONSULTATION DATE OF CONSULTATION: 10/17/2018 REASON FOR THE CONSULTATION: End-stage renal disease. HISTORY OF PRESENT ILLNESS: I have been asked to evaluate the patient regarding his end-stage renal disease. He is an 78-year-old gentleman with history of end-stage renal disease pre sumed secondary to hypertension. He has been on dialysis since 2002, initially peritoneal dialysis, but then hemodialysis since 2010. Currently dialyzes on a Saturday, Saturday, Saturday schedule at the [facility]. He describes his dialysis treatments has been relatively uneventful, alth ough he only tolerates approximately 2 liters of ultrafiltration, if this is exceeded, he reports sig nificant hypotension. He has had a cough and URI symptoms for several days, he presented to the [facility] Emergency Room today for these symptoms, rather than going to dialysis. He was found to have evidenc e of pneumonia and was subsequently admitted. He has been started on empiric antibiotics and was als o found to be positive for RSV. He denies missing any dialysis treatments. PAST MEDICAL HISTORY: 1. End-stage renal disease, secondary to hypertension as outlined above. 2. History of fungal peritonitis while on peritoneal dialysis, prompting his transition to hemodialy sis in 2010. 3. Longstanding hypertension. 4. Coronary artery disease. 5. Obstructive sleep apnea, on CPAP. 6. Gastroesophageal reflux. 7. Hyperlipidemia. 8. BPH. 9. Osteoarthritis. 10. Prostate cancer. 11. History of recurrent GI bleeding. PAST SURGICAL HISTORY: 1. Peritoneal dialysis catheter placement and removal. 2. Left upper extremity AV fistula with subsequent revision. 3. Cataracts. 4. Umbilical hernia. 5. Ventral hernia. 6. Hip replacement. SOCIAL HISTORY: He is a nonsmoker, nondrinker. FAMILY HISTORY: His father also had end-stage renal disease, secondary to hypertension and was on di alysis. He also has a nephew with ESRD, he is uncertain as to the etiology of his renal disease. ALLERGIES: No known drug allergies. MEDICATIONS: Home medications: Aspirin, calcium carbonate, vitamin D, Nephro-Arcadio, gabapentin, chaparro nopril 40 mg daily, amlodipine 10 mg daily, hydralazine 25 mg twice daily, iron sulfate daily. Current medications, include ceftriaxone 1000 mg IV daily. REVIEW OF SYSTEMS: Positive for cough, dyspnea, and some weakness as outlined above. Aside from oth er positives noted in HPI, the remainder of a 10 organ system review is negative. PHYSICAL EXAM: GENERAL: He is in no acute distress. VITAL SIGNS: Blood pressure 177/88, heart rat e is 88, oxygenation is 92% on 2 L by nasal cannula. HEENT: Sclerae anicteric. Oral mucosa is mois t. Oropharynx difficult to visualize. NECK: Supple without JVD or lymphadenopathy. No carotid bru its. LUNGS: Diminished breath sounds throughout, particularly at the right base. I do not apprecia te any crackles. There are few scattered rhonchi. BACK: No CVA tenderness. HEART: Regular rate a nd rhythm. A 2/6 systolic murmur, occasional ectopy. ABDOMEN: Soft, nontender with normoactive bow el sounds. I do not appreciate hepatosplenomegaly, mass, or bruits. EXTREMITIES: There is 1+ edema in his lower extremities bilaterally. His feet are warm and appear well perfused, but I cannot defi nitively appreciate pedal pulses. The left upper extremity AV fistula is patent with an excellent br uit and thrill. SKIN: There are no skin rashes. NEURO: He is awake, alert, appropriate. There is no facial droop. : Germain catheter is absent. LABORATORY/IMAGING: Sodium 136, potassium 4.4, chloride 97, CO2 24, BUN 54, creatinine 9.6, glucose 116, calcium 8.3. Brain natriuretic peptide 58,000. White blood cell count 3.4, hemoglobin 10.5, pl atelets 89. Chest x-ray demonstrated enlarged cardiac silhouette with mild pulmonary venous congestion and a poss ible trace right pleural effusion. No convincing infiltrate was commented upon. IMPRESSION/PLAN: 1. End-stage renal disease: We will plan to dialyze the patient tomorrow. If he remains admitted, we would then dialyze him next on Saturday to resume his typical Saturday, Saturday, Saturday schedule. H e does appear to be volume up, but overall stable. We will plan to ultrafilter him empirically tomor row. His access appears excellent. 2. Hypoxemia: He is on antibiotics for possible pneumonia and is also positive for respiratory sync ytial virus. I suspect there may be a component of volume as well and we will try to ultrafilter him a bit more aggressively than was apparently done typically. 3. Hypertension: This is poorly controlled, though I do not know what his baseline is. His home me dications will be resumed and we will ultrafilter him as tolerated as outlined above. 4. Anemia: His hemoglobin is at goal. Thank you for the consultation. We will follow with you. /[id number]/MODL
[2018-10-17] MEDS: guaiFENesin 200 MG/10 ML UDL PO PRN (19:58)
[2018-10-17] MEDS: CALCIUM CARBONATE 500 MG CHEWABLE TAB PO SCH (21:11)
[2018-10-17] MEDS: GABAPENTIN 100 MG CAP PO SCH (21:11)
[2018-10-17] MEDS: ACETAMINOPHEN 325 MG TAB PO PRN (23:00)
[2018-10-17] MEDS: CEPACOL LOZENGE PO PRN (23:11)
[2018-10-18] MEDS: HEPARIN 5,000 UNIT/0.5 ML INJ SC SCH ×3 (04:38→20:42)
[2018-10-18] MEDS: CEPACOL LOZENGE PO PRN ×4 (04:39→22:18)
[2018-10-18] MEDS: guaiFENesin 200 MG/10 ML UDL PO PRN ×2 (04:46→11:24)
[2018-10-18 05:35] LABS: PLATELET COUNT 86 10^3/uL (150-400)
[2018-10-18] MEDS: CHOLECALCIFEROL VIT D3 1,000 UNITS TAB PO SCH (08:28)
[2018-10-18] MEDS: FERROUS SULFATE 325 MG TAB PO SCH (08:28)
[2018-10-18] MEDS: ASPIRIN 81 MG CHEWABLE TAB PO SCH (08:28)
[2018-10-18] MEDS: METOLAZONE 5 MG TAB PO SCH (08:28)
[2018-10-18] MEDS: hydrALAZINE 25 MG TAB PO SCH ×2 (08:29→20:42)
[2018-10-18] MEDS: LISINOPRIL 40 MG TAB PO SCH (08:29)
--- NOTE | 2018-10-18 08:46 | PDMN ---
Medical Necessity Medical necessity: Pt meets IP criteria per MD & MCG MG-SIC Systemic or Infectious Condition; est los >2 mn for eval/tx of RSV complicated by fluid overload & need for dialysis w/suspected bacterial pneumonia; admit for further monitoring, IV abx & Nephrology consult; comorbid advanced age, CAD, ESRD on HD ; per H&P & order 10/17/18
[2018-10-18] MEDS ORDERED: AZITHROMYCIN IV 500 MG in NS 250 ML IV SCH (09:00)
[2018-10-18] MEDS: ACETAMINOPHEN 325 MG TAB PO PRN ×3 (11:21→22:14)
--- NOTE | 2018-10-18 14:28 | HOSPPROG ---
Hospitalist Progress Note Assessment/Plan: 78yo M with ESRD on HD presents with 3-4 days of shortness of breath, productive cough, intermittent fevers found to have RSV. #RSV bronchitis: Stop antibiotics. Schedule duonebs, start pred 20mg qd #Cough: Start guafenesin/dextromethorphan, continue tessalon pearls #Acute hypoxia: Above plus some mild fluid overload. Improving. Wean as able. #ESRD: Renal consulted. Plan for HD today. #Anemia of renal disease: at baseline #Thrombocytopenia: Stable #CAD s/p stent: On aspirin #HTN: BP elevated in setting of missing HD. Continue home meds #CARROLL: Nocturnal O2 VTE ppx: SQH Code: full Dispo: Inpatient, possibly dc tomorrow Subjective: Still with severe coughing fits but overall frequency of these has decreased since admission. Hasn't been dialyzed yet. No fevers. Objective: Vital Signs Temp Pulse Resp BP Pulse Ox 36.7 C 96 18 188/97 H 93 10/18/18 11:16 10/18/18 11:16 10/18/18 11:16 10/18/18 11:16 10/18/18 11:16 Laboratory Results 10/18/18 04:34 10/18/18 04:34 10/17/18 10/18/18 10/19/18 05:59 05:59 06:59 Intake Total 100 Balance 100 - Physical Exam Constitutional: no apparent distress, appears nourished, not in pain Eyes: PERRL, anicteric sclera, EOMI Ears, Nose, Mouth, Throat: moist mucous membranes, hearing normal, ears appear normal, no oral mucosal ulcers Cardiovascular: regular rate and rhythym, no murmur, rub, or gallop, other (LUE AV fistula with good thrill), No edema Respiratory: no respiratory distress, reduced air movement, expiratory wheeze, other (coughing fit while I was in room) Gastrointestinal: normoactive bowel sounds, soft, non-tender abdomen, no palpable masses Genitourinary: no bladder fullness, no bladder tenderness, no renal bruits Skin: no rashes or abrasions, no fluctuance, no induration Musculoskeletal: full muscle strength, no muscle tenderness, normal joint ROM Neurologic: AAOx3, sensation intact bilaterally Psychiatric: interacting appropriately, not anxious, not encephalopathic, thought process linear ICD10 Worksheet Patient Problems: Problems Problem Status Onset Community acquired pneumonia Acute ESRD on hemodialysis Acute Hypertension due to end stage renal disease on dialysis Acute Anemia Acute Coronary arteriosclerosis after percutaneous transluminal coronary angioplasty ( PTCA) Acute End stage renal disease Acute GI bleeding Acute Hypotension Acute Lower GI bleed Acute Non-ST elevation (NSTEMI) myocardial infarction Acute Non-ST elevation myocardial infarction (NSTEMI) due to mismatch of myocardial oxygen supply and demand Acute Rectal bleeding Acute Renal failure Acute
--- NOTE | 2018-10-18 15:09 | SOAPPROG ---
SOAP Progress Note Assessment/Plan: Assessment: 1. esrd: hd later today, next Saturday to resume typical mwf schedule if remains admitted. Outpt clinic is [facility]. Will UF as tolerated on hd to help with pulm issues. 2. htn: cont meds, uf as tolerated on hd. 3. sob: on symptomatic rx for RSV bronchitis. Evidence of volume as well, will uf on hd. He reports hypotension with excessive uf, though this does not appear to be an issue currently. 4. anemia: hgb at goal Plan: 10/18/18 15:06 Subjective: Feeling a little better today. For hd later this afternoon. Objective: Vital Signs Temp Pulse Resp BP Pulse Ox 36.7 C 96 18 188/97 H 93 10/18/18 11:16 10/18/18 11:16 10/18/18 11:16 10/18/18 11:16 10/18/18 11:16 Laboratory Results 10/18/18 04:34 10/18/18 04:34 10/17/18 10/18/18 10/19/18 05:59 05:59 06:59 Intake Total 100 Balance 100 Physical Exam - Physical Exam General Appearance: no apparent distress Respiratory: decreased breath sounds (at bases), rhonchi, wheezing Cardiac/Chest: regular rate, rhythm Abdomen: non-tender, soft Extremities: pedal edema (trace-1+), other (+patent LUE avf) ICD10 Worksheet Patient Problems: Problems Problem Status Onset Community acquired pneumonia Acute ESRD on hemodialysis Acute Hypertension due to end stage renal disease on dialysis Acute Anemia Acute Coronary arteriosclerosis after percutaneous transluminal coronary angioplasty ( PTCA) Acute End stage renal disease Acute GI bleeding Acute Hypotension Acute Lower GI bleed Acute Non-ST elevation (NSTEMI) myocardial infarction Acute Non-ST elevation myocardial infarction (NSTEMI) due to mismatch of myocardial oxygen supply and demand Acute Rectal bleeding Acute Renal failure Acute
[2018-10-18] MEDS: IPRATROPIUM/ALBUTEROL 3 ML DEYVIAL IH SCH ×2 (15:17→21:02)
[2018-10-18] MEDS: GUAIFENESIN/DM 10 ML UDCUP PO PRN ×2 (15:19→20:41)
[2018-10-18] MEDS: CALCIUM CARBONATE 500 MG CHEWABLE TAB PO SCH (20:41)
[2018-10-18] MEDS: GABAPENTIN 100 MG CAP PO SCH (20:42)
[2018-10-18] MEDS: predniSONE 20 MG TAB PO SCH (20:42)
[2018-10-19] MEDS: CEPACOL LOZENGE PO PRN ×2 (05:16→06:38)
[2018-10-19] MEDS: HEPARIN 5,000 UNIT/0.5 ML INJ SC SCH ×2 (05:16→13:18)
[2018-10-19] MEDS: GUAIFENESIN/DM 10 ML UDCUP PO PRN (05:16)
[2018-10-19] MEDS: IPRATROPIUM/ALBUTEROL 3 ML DEYVIAL IH SCH ×2 (05:33→11:14)
[2018-10-19 07:56] VITALS: BP 158/83
[2018-10-19] MEDS: hydrALAZINE 25 MG TAB PO SCH (08:40)
[2018-10-19] MEDS: CHOLECALCIFEROL VIT D3 1,000 UNITS TAB PO SCH (08:40)
[2018-10-19] MEDS: LISINOPRIL 40 MG TAB PO SCH (08:40)
[2018-10-19] MEDS: METOLAZONE 5 MG TAB PO SCH (08:40)
[2018-10-19] MEDS: ASPIRIN 81 MG CHEWABLE TAB PO SCH (08:40)
[2018-10-19] MEDS: predniSONE 20 MG TAB PO SCH (08:40)
[2018-10-19] MEDS: FERROUS SULFATE 325 MG TAB PO SCH (08:40)
[2018-10-19] MEDS: ACETAMINOPHEN 325 MG TAB PO PRN (10:58)
--- NOTE | 2018-10-19 13:05 | SOAPPROG ---
SOAP Progress Note Assessment/Plan: Assessment: 1. esrd: s/p hd yesterday, will repeat tomorrow to resume typical mwf schedule. Outpt clinic is [facility]. Will cont to UF as tolerated on hd to help with pulm issues. 2. htn: cont meds, uf as tolerated on hd. Appears improved s/p hd yesterday. 3. sob: on symptomatic rx for RSV bronchitis. Evidence of volume as well, will cont to uf on hd. He reports hypotension with excessive uf but had no issues yesterday. 4. anemia: hgb at goal Plan: 10/18/18 15:06 10/19/18 13:02 Subjective: s/p uneventful hd yesterday with 3L uf. No cramps/hypotension or other difficulties during rx. Feeling sig better today and is currently on RA. Objective: Vital Signs Temp Pulse Resp BP Pulse Ox 36.5 C 75 16 158/83 H 93 10/19/18 07:54 10/19/18 11:17 10/19/18 11:17 10/19/18 08:40 10/19/18 11:17 Laboratory Results 10/18/18 04:34 10/18/18 04:34 10/18/18 10/19/18 10/20/18 04:59 05:59 05:59 Intake Total Output Total Balance Physical Exam - Physical Exam General Appearance: no apparent distress Respiratory: decreased breath sounds, other (no wheeze) Cardiac/Chest: regular rate, rhythm Extremities: pedal edema, other (+patent LUE avf) ICD10 Worksheet Patient Problems: Problems Problem Status Onset Community acquired pneumonia Acute ESRD on hemodialysis Acute Hypertension due to end stage renal disease on dialysis Acute Anemia Acute Coronary arteriosclerosis after percutaneous transluminal coronary angioplasty ( PTCA) Acute End stage renal disease Acute GI bleeding Acute Hypotension Acute Lower GI bleed Acute Non-ST elevation (NSTEMI) myocardial infarction Acute Non-ST elevation myocardial infarction (NSTEMI) due to mismatch of myocardial oxygen supply and demand Acute Rectal bleeding Acute Renal failure Acute
--- NOTE | 2018-10-19 13:32 | PDDCSUM ---
Discharge Summary Discharge Summary: Date of Admission: 10/17/2018 Date of Discharge: 10/19/2018 Consultants: nephrology Studies: CXR Procedures: hemodialysis x1 (10/18) Discharge Diagnoses: 1. RSV bronchitis 2. Mild pulmonary edema 3. Acute hypoxia, resolved 4. ESRD on HD 5. Anemia of renal disease 6. Chronic thrombocytopenia 7. CAD s/p stent 8. HTN 9. CARROLL on CPAP Brief Hospital Course: 78yo M with ESRD on HD presented with 3-4 days of shortness of breath, productive cough, intermittent fevers found to have RSV. CXR without pneumonia. He was not septic. He was treated supportively with bronchodilators and steroids with improvement. He was weaned off supplemental oxygen. He also underwent 1 session of HD with ultrafiltration and his oxygenation and BP both improved. I discharged him with a course of prednisone and cough medications. He will resume his normal HD tomorrow. Medications: Please refer to EMR for complete list. I wrote prescription for prednisone 20mg QD #4, guafenesin/dextromethorphan PRN. Follow Up Plan: 1. Resume normal MWF HD tomorrow 2. PCP visit in 1-2 weeks Physical Exam: Vitals reviewed, afebrile. Alert and oriented, rrr with systolic murmur, lungs clear without wheezes, abdomen soft and nt, 1+ BLE edema, LUE AV fistula with good thrill.
--- NOTE | 2018-10-19 14:58 | ASMTDCNOTE ---
Case Management Discharge Discharge Order Complete? Answers: Yes Patient to Obtain Answers: Independently Medications Transportation Arranged Answers: Taxi - Self Pay Discharge Comments Notes: CM met with patient prior to discharge. Patient follow up as recommended and will resume dialysis //, which he has a routine to get to by bus. Patient states he will take a cab to [employer] and then home today. He states he has a whole team of people that support him but they couldn't come today to pick him up. CM explained and delivered IM, patient took a copy and signed for receipt, CM placed signed copy in back of chart. Plan: D/C home independent. Date Signed: 10/19/2018 02:57 PM Electronically Signed By:Soco Ortiz
--- NOTE | 2018-10-19 15:05 | ASDISCHSUM ---
Discharge Information Plan Status:Home with No Needs Medically Cleared to Leave:10/18/2018 Discharge Date:10/19/2018 02:58 PM CM D/C Disposition:Home, Routine, Self-Care ADT D/C Disposition:Home, Routine, Self-Care Projected Discharge Date:10/19/2018 12:00 AM Transportation at D/C:Taxicab Discharge Delay Reason: Follow-Up Date:10/19/2018 12:00 AM Discharge Slot:2 - 12:01 pm - 18:00 pm Final Diagnosis:RSV Placement Information Patient Contact Information Contact Name:OUMAR Relationship:Nick Address: Work Phone: [facility]:[employer] Alternate Phone: [facility]/[employer] Code:[place] Email: Financial Information Financial Class:Medicare Primary Plan Desc:MEDICARE INPATIENT Primary Plan Number:[id number] Secondary Plan Desc:[employer] LIFE AND CASUALTY Secondary Plan Number:[id number] Assessment Information [facility] CM Progress Note CM Note CM Note Notes: Reviewed chart. Pt presented to the Emergency Department for cough and wheezing x several days, positive for RSV. History includes ESRD with dialysis MWF, sleep apnea, [place], HTN, CAD, diverticulitis. Pt is single and lives in [place]. Pt admitted for further evaluation and treatment. Discharge needs remain unclear at this time. CM will continue to follow. Discharge Plan: To be determined Date Signed: 10/17/2018 03:56 PM Electronically Signed By:Sylvia Peng RN Case Management Discharge Plan Note Case Management Discharge Discharge Order Complete? Answers: Yes Patient to Obtain Answers: Independently Medications Transportation Arranged Answers: Taxi - Self Pay Discharge Comments Notes: CM met with patient prior to discharge. Patient follow up as recommended and will resume dialysis M//, which he has a routine to get to by bus. Patient states he will take a cab to [employer] and then home today. He states he has a whole team of people that support him but they couldn't come today to pick him up. CM explained and delivered IM, patient took a copy and signed for receipt, CM placed signed copy in back of chart. Plan: D/C home independent. Date Signed: 10/19/2018 02:57 PM Electronically Signed By:Soco Ortiz Intervention Information Intervention Type:*IM-Signed Date of Service:10/19/2018 02:51 PM Patient Type:Inpatient Staff Member:Soco Ortiz Hours: Discipline: Severity: Comment:CM explained and delivered IM, patient signed for receipt and CM placed in back of chart .
[2018-10-20 05:08] LABS: HEPATITIS B CORE AB IGM NEGATIVE (NEGATIVE); HEPATITIS B SURFACE ANTIGEN NEGATIVE (NEGATIVE)
== END 2018-10-19 14:58 | disposition home or self-care (01) | DRG 202 ==
LOC: F3E 14:24
PROVIDERS: ADMIT Internal Medicine; ATTEND Internal Medicine
PROC: 5A1D70Z Performance of Urinary Filtration, Intermittent, Less than 6 Hours Per Day (ICD-10-PCS; principal; 2018-10-18)
DX: J20.5 Acute bronchitis due to respiratory syncytial virus (principal); J81.0 Acute pulmonary edema; I12.0 Hypertensive chronic kidney disease with stage 5 chronic kidney disease or end stage renal disease; N18.6 End stage renal disease; R09.02 Hypoxemia; D63.1 Anemia in chronic kidney disease; D69.6 Thrombocytopenia, unspecified; I25.10 Atherosclerotic heart disease of native coronary artery without angina pectoris; G47.33 Obstructive sleep apnea (adult) (pediatric); Z99.2 Dependence on renal dialysis; Z95.5 Presence of coronary angioplasty implant and graft; E78.5 Hyperlipidemia, unspecified; N40.0 Benign prostatic hyperplasia without lower urinary tract symptoms; Z85.46 Personal history of malignant neoplasm of prostate
CPT/HCPCS: 86705-90; 96365; 97165-GO; J0456; J0696; J1644; J2930; J7512

== ENCOUNTER 2018-10-20 09:28 | Inpatient (IN) | payer OTHER ==
[2018-10-20] MEDS ORDERED: OXYMETAZOLINE 30 ML NASAL SPRAY ONE (10:08)
[2018-10-20] MEDS ORDERED: TRANEXAMIC ACID 1,000 MG/10 ML VIAL ONE (10:08)
[2018-10-20] MEDS ORDERED: SILVER NITRATE APPLICATOR 1 APPL TP ONE (10:08)
--- NOTE | 2018-10-20 10:35 | EDPHY ---
H & P Time Seen by Provider: 10/20/18 09:56 HPI/ROS: HPI Nosebleed. Cough. Shortness of breath. 78-year-old male by private vehicle. This patient was just discharged yesterday from the hospital after a 3 day admission for bronchitis. He reports that shortly after discharge he developed a slow nosebleed from his left nostril. He reports that has been persistent since that time. He is not on any anticoagulants. He does have a history of renal failure and is on hemodialysis on Saturday, Saturday and Saturday. There is no history of trauma. ROS: Constitutional: No fever, no chills. No weakness. Eyes: No discharge. No changes in vision. ENT: No sore throat. No nasal congestion or rhinorrhea. As above. Respiratory: He has had a cough secondary to his bronchitis which she states is improving. Shortness of breath when coughing. Cardiac: No chest pain, no palpitations. Gastrointestinal: No abdominal pain, no vomiting, no diarrhea. Genitourinary: No hematuria. No dysuria or increased frequency with urination. Musculoskeletal: No back pain. No neck pain. No myalgias or arthralgias. Skin: No rashes. Neurological: No headache. No focal weakness or altered sensation. Past medical history: As above, left arm fistula, sleep apnea, hypertension, coronary artery disease with stents, hip surgery. Social history: Currently lives independently at a senior home. Nonsmoker. No alcohol. Physical Exam: General Appearance: Alert, he is not distressed. He has a Kleenex pushed up into his left nostril. This patient is responding to questions appropriately and in full sentences. This patient appears well-hydrated and well-nourished. Eyes: Pupils equal and round no pallor or injection. No lid edema, erythema or injection. ENT, Mouth: Mucous membranes are moist. The pharyngeal tissues are unremarkable. No edema or swelling. No asymmetry suggestive of abscess. No erythema or exudates. Some dark venous blood in the posterior pharynx. Small oozing of venous blood from the left nasal cavity. Please see epistaxis procedure below for further details. Respiratory: There are no retractions, wheezing with scant rhonchi in the mid is upper lung [place], no tachypnea, diminished air movement, intermittent dry cough. No tachypnea at rest. Cardiovascular: Regular rate and rhythm. No murmur appreciated. JVD noted. Neurological: Motor sensory function is grossly intact. Cranial nerves are normal. Gait is normal. Skin: Warm and dry, no rashes. Musculoskeletal: Neck is supple and nontender. Extremities are symmetrical. All joints range without pain or impingement. Psychiatric: No agitation. No depression. Database: EKG: EKG time is 1:26 p.m.; EKG shows a sinus rhythm with underlying right bundle branch block and left anterior fascicular block, ventricular rate of 87. The p.r. Interval is borderline prolonged. The QRS, QT intervals are within normal limits. There are no ST-T wave changes indicative of ischemic or injury pattern. No evidence of right heart strain. Interpreted by me. Imaging: PA and lateral chest x-ray: Findings consistent with bronchitis. Pulmonary venous congestion. No focal infiltrate or pneumothorax. Interpreted by me. Procedures: Procedure: Epistaxis control. After verbal consent was obtained, cotton soaked ball containing TXA and Afrin applied to the left nasal cavity and left in place for 10 min, this was then removed.. The anterior epistaxis was identified. The patient was treated with silver nitrate cautery. Following the procedure the patient was re-examined and the bleeding was well controlled. The patient tolerated the procedure well. The procedure was performed by myself. Emergency department course: Triage vital signs reviewed. He is hypertensive and mildly tachycardic. He is afebrile. On my evaluation blood pressure currently 191/98. Heart rate of 86. Room air pulse oximetry 94%. 11:50 a.m., the patient was re-evaluated. Continued hemostasis. 12:20 p.m., we got the patient up and walked him around the emergency department. Room air pulse oximetry is 90-92%. He has missed dialysis today but is confident he can get in for his dialysis appointment tomorrow. He is fragile. He has a continued raspy cough with wet sounding lungs secondary to his bronchitis and likely fluid overload. I discussed admission with him for observation here overnight. He endorses admission. Hospitalist paged. EKG, chest x-ray basic blood work to be obtained shortly. 12:40 p.m., case discussed with on-call hospitalist, he will be readmitted to Dr. Craig who was involved with his management during his recent admission and discharged yesterday. The patient was admitted in stable condition to the hospitalist service. Dialysis to be arranged by the hospitalist service. Differential Diagnosis: The differential diagnosis on this patient includes but is not limited to anterior epistaxis, bronchitis. Posterior epistaxis, traumatic injury, coagulopathy unlikely. This represents a partial list of diagnoses considered. These considerations are based on history, physical exam, past history, reassessment and diagnostic testing. Smoking Status: Never smoked Constitutional: Initial Vital Signs Temperature (C) 37 C 10/20/18 09:35 Heart Rate 107 H 10/20/18 09:35 Respiratory Rate 20 10/20/18 09:35 Blood Pressure 204/108 H 10/20/18 09:35 O2 Sat (%) 91 L 10/20/18 09:35 O2 Delivery Mode Room Air O2 (L/minute) 2 Allergies/Adverse Reactions: No Known Allergies Allergy (Verified 10/20/18 09:33) Home Medications: Medication Instructions Recorded Aspirin [Aspirin 81mg (*)] 81 mg PO DAILY 07/11/18 Calcium Carbonate [Tums 500MG (*)] 500 mg PO HS 07/11/18 Cholecalciferol Vit D3 [Vitamin D3 1,000 units PO DAILY 07/11/18 (*)] Folic Acid/Vit B Com W/C 1 each PO DAILY 07/11/18 [Nephro-[facility]io Rx] Gabapentin [Neurontin 100 MG (*)] 200 mg PO HS 07/11/18 Herbals/Supplements -Info Only 1 ea PO DAILY 07/11/18 Lisinopril [Zestril 40 mg (*)] 40 mg PO DAILY 07/11/18 Metolazone [Zaroxolyn 5MG (*)] 5 mg PO DAILY 07/11/18 amLODIPine BESYLATE [Norvasc 10 mg 10 mg PO DAILY 07/11/18 (*)] C/E/Zn/Cu/OM3/DHA/EPA/LUT/ZEAX 1 each PO DAILY 10/17/18 [Preservision Areds 2 Softgel] Ferrous Sulfate [Ferrous Sulf 325 325 mg PO DAILY 10/17/18 MG (*)] hydrALAZINE [Apresoline] 25 mg PO BID 10/17/18 guaiFENesin/DEXTROMETHORPHAN 10 ml PO Q4HRS PRN #1 btl 10/19/18 [Robitussin Dm Oral Liquid (*)] predniSONE 20 mg PO DAILY #4 tablet 10/19/18 Medical Decision Making - Data Points Laboratory Results: Laboratory Results 10/21/18 09:00 10/21/18 07:06 Medications Given: Acetaminophen (Tylenol) 650 mg PO Q4HRS PRN PRN Reason: Pain, Mild/Fever, Can Take PO Stop: 04/18/19 13:58 Last Admin: 10/22/18 10:11 Dose: 650 mg Albuterol (Proventil Neb) 3 ml IH Q2HRS PRN PRN Reason: Short of Breath/Dyspnea Stop: 04/18/19 13:58 Last Admin: 10/21/18 17:08 Dose: 3 ml Albuterol/Ipratropium (Duoneb) 3 ml IH QID PRN PRN Reason: Short of Breath/Dyspnea Stop: 04/18/19 15:59 Last Admin: 10/21/18 13:39 Dose: 3 ml Amlodipine Besylate (Norvasc) 10 mg PO DAILY JACKSON Stop: 04/19/19 08:59 Last Admin: 10/22/18 10:06 Dose: 10 mg Amoxicillin (Amoxicillin) 500 mg PO Q24H JACKSON PRN Reason: Protocol Stop: 11/20/18 20:59 Last Admin: 10/22/18 21:03 Dose: 500 mg Aspirin (Aspirin) 81 mg PO DAILY JACKSON Stop: 04/19/19 08:59 Last Admin: 10/21/18 08:59 Dose: 81 mg Calcium Carbonate (Tums) 500 mg PO TID PRN PRN Reason: Indigestion Stop: 04/19/19 15:59 Last Admin: 10/21/18 13:46 Dose: 500 mg Cholecalciferol (Vitamin D) 1,000 units PO DAILY JACKSON Stop: 04/19/19 08:59 Last Admin: 10/22/18 10:08 Dose: 1,000 units Ferrous Sulfate (Ferrous Sulfate) 325 mg PO DAILY JACKSON Stop: 04/19/19 08:59 Last Admin: 10/22/18 10:06 Dose: 325 mg Gabapentin (Neurontin) 200 mg PO HS JACKSON Stop: 04/18/19 20:59 Last Admin: 10/22/18 21:03 Dose: 200 mg Guaifenesin/Dextromethorphan (Robitussin Dm Oral Liquid) 10 ml PO Q4HRS PRN PRN Reason: Cough, Moderate Stop: 04/18/19 14:00 Last Admin: 10/22/18 21:03 Dose: 10 ml Heparin Sodium (Porcine) (Heparin Sc Injection) 5,000 unit SC Q8 JACKSON Stop: 04/18/19 13:59 Last Admin: 10/20/18 20:44 Dose: Not Given Hydralazine HCl (Apresoline) 25 mg PO BID JACKSON Stop: 04/18/19 20:59 Last Admin: 10/22/18 21:03 Dose: 25 mg Lisinopril (Zestril) 40 mg PO DAILY JACKSON Stop: 04/19/19 08:59 Last Admin: 10/22/18 10:08 Dose: 40 mg Oxymetazoline HCl (Afrin Nasal [place]) 2 sprays [place] BID [facility] Stop: 04/19/19 17:14 Last Admin: 10/22/18 21:04 Dose: 2 sprays Prednisone (Prednisone) 20 mg PO DAILY JACKSON Stop: 04/19/19 08:59 Last Admin: 10/22/18 10:06 Dose: 20 mg Discontinued Medications Amlodipine Besylate (Norvasc) 10 mg PO DAILY JACKSON Stop: 04/18/19 14:14 Last Admin: 10/20/18 16:50 Dose: Not Given Calcium Carbonate (Tums) 500 mg PO HS [facility] Stop: 04/18/19 20:59 Last Admin: 10/20/18 20:41 Dose: 500 mg Departure - Departure Disposition: [facility] Acute Clinical Impression: Epistaxis, Acute bronchitis, ESRD on hemodialysis, Hypoxia, Pulmonary congestion
[2018-10-20 13:22] LABS: PLATELET COUNT 132 10^3/uL (150-400)
[2018-10-20] MEDS ORDERED: ONDANSETRON 4 MG/2 ML VIAL IVP PRN (13:59)
[2018-10-20] MEDS ORDERED: ONDANSETRON DISINTEGRATING 4 MG TAB PO PRN (13:59)
[2018-10-20] MEDS ORDERED: ALBUTEROL 3 ML DEYVIAL IH PRN (13:59)
[2018-10-20] MEDS ORDERED: BENZONATATE 100 MG CAP PO PRN (14:02)
--- NOTE | 2018-10-20 14:02 | PDGENHP ---
History and Physical - Chief Complaint nose bleeding - History of Present Illness 78yo M with ESRD on HD just discharged yesterday after short stay for RSV bronchitis presents with nose bleed. This started after admission. He reports feeling well at home otherwise. His cough was slowly improving. He was breathing ok. In the ED, his nose was briefly packed and then cauterized with resolution of bleeding. He developed a coughing fit while his nose was being packed and was wheezing. His oxygen saturations were in the low 90s on room air. He missed his HD today. His serum K is 5.2. ED providers felt that he was unsafe for discharge home given his age, wheezing, and need for HD. History Information - Allergies/Home Medication List Allergies/Adverse Reactions: No Known Allergies Allergy (Verified 10/20/18 09:33) Home Medications: Aspirin [Aspirin 81mg (*)] 81 mg PO DAILY 07/11/18 [Last Taken 10/19/18] Calcium Carbonate [Tums 500MG (*)] 500 mg PO HS 07/11/18 [Last Taken 10/19/18] Cholecalciferol Vit D3 [Vitamin D3 (*)] 1,000 units PO DAILY 07/11/18 [Last Taken 10/19/18] Folic Acid/Vit B Com W/C [Nephro-Arcadio Rx] 1 each PO DAILY 07/11/18 [Last Taken 10/19/18] Gabapentin [Neurontin 100 MG (*)] 200 mg PO HS 07/11/18 [Last Taken 10/19/18] Herbals/Supplements -Info Only 1 ea PO DAILY 07/11/18 [Last Taken 07/11/18] Lisinopril [Zestril 40 mg (*)] 40 mg PO DAILY 07/11/18 [Last Taken 10/19/18] Metolazone [Zaroxolyn 5MG (*)] 5 mg PO DAILY 07/11/18 [Last Taken 10/19/18] amLODIPine BESYLATE [Norvasc 10 mg (*)] 10 mg PO DAILY 07/11/18 [Last Taken 05/30] C/E/Zn/Cu/OM3/DHA/EPA/LUT/ZEAX [Preservision Areds 2 Softgel] 1 each PO DAILY [Last Taken 10/19/18] Ferrous Sulfate [Ferrous Sulf 325 MG (*)] 325 mg PO DAILY 10/17/18 [Last Taken 10/19/18] hydrALAZINE [Apresoline] 25 mg PO BID 10/17/18 [Last Taken 10/19/18 21:00] I have personally reviewed and updated: family history, medical history, social history, surgical history - Past Medical History coronary artery disease, ESRD (Left arm fistula), hypertension, myocardial infarction Additional medical history: Sleep apnea w/ CPAP - Surgical History Reports: colectomy, coronary stent - Family History Positive for: non-pertinent Additional family history: CKD in his father. No hx of GI disease - Social History Smoking Status: Never smoked Additional social history: Lives in [place] at a senior facility. . Son lives in [place] by [address]. 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 Review of Systems Review of Systems: ROS: 10pt was reviewed & negative except for what was stated in HPI & below Physical Exam Physical Exam: Temp Pulse Resp BP Pulse Ox 37 C 97 18 208/110 H 95 10/20/18 09:35 10/20/18 12:18 10/20/18 12:18 10/20/18 12:18 10/20/18 12:41 Constitutional: no apparent distress, appears nourished Eyes: PERRL, anicteric sclera Ears, Nose, Mouth, Throat: moist mucous membranes Cardiovascular: regular rate and rhythym, systolic murmur, edema (1+ BLE) Respiratory: no respiratory distress, reduced air movement, expiratory wheeze Gastrointestinal: normoactive bowel sounds, soft, non-tender abdomen, no palpable masses Genitourinary: no bladder fullness, no bladder tenderness Skin: warm, normal color, no rashes or abrasions, no fluctuance, no induration, No mottled Musculoskeletal: other (LUE AVF with good thrill) Neurologic: AAOx3 Psychiatric: interacting appropriately Lab Data & Imaging Review 10/20/18 12:43 10/20/18 12:43 WBC 8.43 10^3/uL (3.80-9.50) 10/20/18 12:43 RBC 3.83 10^6/uL (4.40-6.38) L 10/20/18 12:43 Hgb 11.1 g/dL (13.7-17.5) L 10/20/18 12:43 Hct 34.2 % (40.0-51.0) L 10/20/18 12:43 MCV 89.3 fL (81.5-99.8) 10/20/18 12:43 MCH 29.0 pg (27.9-34.1) 10/20/18 12:43 MCHC 32.5 g/dL (32.4-36.7) 10/20/18 12:43 RDW 16.2 % (11.5-15.2) H 10/20/18 12:43 Plt Count 132 10^3/uL (150-400) L 10/20/18 12:43 MPV 9.9 fL (8.7-11.7) 10/20/18 12:43 Neut % (Auto) 91.1 % (39.3-74.2) H 10/20/18 12:43 Lymph % (Auto) 4.4 % (15.0-45.0) L 10/20/18 12:43 [place] % (Auto) 3.3 % (4.5-13.0) L 10/20/18 12:43 Eos % (Auto) 0.0 % (0.6-7.6) L 10/20/18 12:43 Baso % (Auto) 0.1 % (0.3-1.7) L 10/20/18 12:43 Nucleat RBC Rel Count 0.0 % (0.0-0.2) 10/20/18 12:43 Absolute Neuts (auto) 7.68 10^3/uL (1.70-6.50) H 10/20/18 12:43 Absolute Lymphs (auto) 0.37 10^3/uL (1.00-3.00) L 10/20/18 12:43 Absolute Monos (auto) 0.28 10^3/uL (0.30-0.80) L 10/20/18 12:43 Absolute Eos (auto) 0.00 10^3/uL (0.03-0.40) L 10/20/18 12:43 Absolute Basos (auto) 0.01 10^3/uL (0.02-0.10) L 10/20/18 12:43 Absolute Nucleated RBC 0.00 10^3/uL (0-0.01) 10/20/18 12:43 Immature Gran % 1.1 % (0.0-1.1) 10/20/18 12:43 Immature Gran # 0.09 10^3/uL (0.00-0.10) 10/20/18 12:43 RBC/WBC/PLT Morphology TNP 10/20/18 12:43 Platelet Estimate TNP 10/20/18 12:43 Sodium 136 mEq/L (135-145) 10/20/18 12:43 Potassium 5.2 mEq/L (3.5-5.2) 10/20/18 12:43 Chloride 97 mEq/L (97-110) 10/20/18 12:43 Carbon Dioxide 25 mEq/l (22-31) 10/20/18 12:43 Anion Gap 14 mEq/L (6-14) 10/20/18 12:43 BUN 56 mg/dL (7-23) H 10/20/18 12:43 Creatinine 9.5 mg/dL (0.7-1.3) H* 10/20/18 12:43 Estimated GFR 5 10/20/18 12:43 Glucose 119 mg/dL (70-100) H 10/20/18 12:43 Calcium 8.3 mg/dL (8.5-10.4) L 10/20/18 12:43 Interpretation: CXR: stable from 3 days ago, evidence of bronchitis, cardiomegaly, no new infiltrate or effusion, mild pulmonary vascular congestion EKG additional interpertation: ECG: sinus, 1st degree AV block, bifascicular block Assessment & Plan Assessment: 78yo M with ESRD on HD just discharged yesterday after short stay for RSV bronchitis presents with nose bleed. Plan: #Epistaxis: Now resolved after cauterization. No packing in place so will not prophylax with antibiotics. Likely related to dry nasal mucosa from recent supplemental oxygen use. #RSV bronchitis - Continue prednisone 20mg daily, duonebs, cough meds - Contact/droplet precautions #Acute hypoxia: Remains resolved. #ESRD on HD: No indication for emergent HD at present - D/w Dr Cardoza, likely go to dialysis tomorrow - Continue phos binders - Monitor labs in AM #Anemia of renal disease: Hgb at goal. #Chronic thrombocytopenia: Stable. #CAD s/p stent: Continue aspirin #HTN: BP elevated on admit in setting of missing HD. Continue home meds. Will likely need ultrafiltration with dialysis. #CARROLL with nocturnal oxygen dependence VTE ppx: SQH Code: full Dispo: Admit under observation
[2018-10-20] MEDS: GUAIFENESIN/DM 10 ML UDCUP PO PRN ×2 (15:17→20:44)
[2018-10-20] MEDS: HEPARIN 5,000 UNIT/0.5 ML INJ SC SCH ×2 (15:18→20:44)
--- NOTE | 2018-10-20 15:31 | CPEKG ---
Test Reason : OPEN Blood Pressure : / mmHG Vent. 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
[2018-10-20] MEDS: IPRATROPIUM/ALBUTEROL 3 ML DEYVIAL IH PRN (17:01)
[2018-10-20] MEDS: hydrALAZINE 25 MG TAB PO SCH (20:41)
[2018-10-20] MEDS: ACETAMINOPHEN 325 MG TAB PO PRN (20:41)
[2018-10-20] MEDS: GABAPENTIN 100 MG CAP PO SCH (20:41)
[2018-10-20] MEDS ORDERED: CALCIUM CARBONATE 500 MG CHEWABLE TAB PO SCH (21:00)
[2018-10-21] MEDS: CHOLECALCIFEROL VIT D3 1,000 UNITS TAB PO SCH (08:59)
[2018-10-21] MEDS: predniSONE 20 MG TAB PO SCH (08:59)
[2018-10-21] MEDS: FERROUS SULFATE 325 MG TAB PO SCH (08:59)
[2018-10-21] MEDS ORDERED: ASPIRIN 81 MG CHEWABLE TAB PO SCH (09:00)
[2018-10-21 09:38] LABS: PLATELET COUNT 141 10^3/uL (150-400)
[2018-10-21] MEDS: IPRATROPIUM/ALBUTEROL 3 ML DEYVIAL IH PRN ×2 (09:42→13:39)
--- NOTE | 2018-10-21 10:45 | SOAPPROG ---
SOAP Progress Note Assessment/Plan: Assessment: Cleve is well known to me. He has a history of ESRD related to HTN. He was initially on PD, but converted to HD and remains with Dr. Soria at the [facility] on a TTS schedule. His dialysis is going fine in general, although he likely has some chronic volume overload, and his BP is typically above goal. Cleve was just admitted recently with RSV bronchitis. He was DC'd, but returned with epistaxis. This resolved with treatment in the ER. Cleve is doing ok in general. Dr. Soria reports that he recently has had worsening exercise intolerance and some possible angina. He has missed recent Cards appts. I have asked cards to stop by today. He is seen on HD today. We are attempting extra fluid removal. He appears to be tolerating this without difficulty. Plan: 10/21/18 10:42 10/21/18 10:46 Subjective: Doing ok Objective: Vital Signs Temp Pulse Resp BP Pulse Ox 36.6 C 75 16 160/98 H 97 10/21/18 07:29 10/21/18 07:29 10/21/18 07:29 10/21/18 07:29 10/21/18 07:29 Laboratory Results 10/21/18 09:00 10/21/18 07:06 10/20/18 10/21/18 10/22/18 05:59 05:59 05:59 Intake Total 500 Balance 500 Physical Exam - Physical Exam General Appearance: no apparent distress Respiratory: decreased breath sounds Cardiac/Chest: regular rate, rhythm Extremities: pedal edema Neuro/Psych: oriented x 3 ICD10 Worksheet Patient Problems: Problems Problem Status Onset Lower GI bleed Acute Rectal bleeding Acute Anemia Acute End stage renal disease Acute GI bleeding Acute Renal failure Acute Coronary arteriosclerosis after percutaneous transluminal coronary angioplasty ( PTCA) Acute Non-ST elevation (NSTEMI) myocardial infarction Acute Non-ST elevation myocardial infarction (NSTEMI) due to mismatch of myocardial oxygen supply and demand Acute Hypotension Acute Community acquired pneumonia Acute ESRD on hemodialysis Acute Hypertension due to end stage renal disease on dialysis Acute Epistaxis Acute Acute bronchitis Acute Hypoxia Acute
[2018-10-21] MEDS: ACETAMINOPHEN 325 MG TAB PO PRN ×2 (12:12→21:53)
--- NOTE | 2018-10-21 13:18 | HOSPPROG ---
Hospitalist Progress Note Assessment/Plan: 78yo M with ESRD on HD recently discharged after short stay for RSV bronchitis presents with nose bleed and ongoing respiratory symptoms. #Cough, dyspnea: Multifactorial from resolving bronchitis, pulmonary edema - Cough suppressants, UF with HD #Decreased exercise intolerance: Worsened cardiomegaly on CXR. ? angina as outpatient but none here. - TTE ordered - Cardiology consulted - Last cath 07/27 without high grade stenosis and patent coronary stents #Epistaxis: Recurred today. Initially resolved after cauterization in ED - Trial afrin #RSV bronchitis - Continue prednisone 20mg/d, duonebs prn, cough meds - Contact/droplet precautions #ESRD on HD: Normally dialyzes MWF - s/p HD today, renal following, continue phos binders #CAD s/p stent: Continue aspirin #HTN: BP elevated on admit in setting of missing HD. Continue home meds. #Acute hypoxia: Resolved. #Anemia of renal disease: Hgb at goal. #Chronic thrombocytopenia: Stable. #CARROLL with nocturnal oxygen dependence VTE ppx: SQH Code: full Dispo: Remain inpatient, possibly dc tomorrow Subjective: Had nosebleed this morning during HD and recurrence this PM on floor. Breathing is still crummy, coughing. No fevers. No chest pain. Objective: Vital Signs Temp Pulse Resp BP Pulse Ox 36.6 C 90 20 185/103 H 94 10/21/18 11:52 10/21/18 11:52 10/21/18 11:52 10/21/18 11:52 10/21/18 11:52 Laboratory Results 10/21/18 09:00 10/21/18 07:06 10/20/18 10/21/18 10/22/18 05:59 05:59 05:59 Intake Total 500 Balance 500 - Physical Exam Constitutional: no apparent distress Eyes: PERRL, anicteric sclera, EOMI Ears, Nose, Mouth, Throat: moist mucous membranes, hearing normal, ears appear normal, no oral mucosal ulcers Cardiovascular: regular rate and rhythym, systolic murmur, edema (1+ BLE) Respiratory: no respiratory distress, reduced air movement (throughout), No expiratory wheeze, No rhonchi Gastrointestinal: normoactive bowel sounds, soft, non-tender abdomen, no palpable masses Genitourinary: no bladder fullness, no bladder tenderness, no renal bruits Skin: no rashes or abrasions, no fluctuance, no induration Musculoskeletal: other (LUE AV fistula with good thrill) Neurologic: AAOx3 Psychiatric: interacting appropriately ICD10 Worksheet Patient Problems: Problems Problem Status Onset Acute bronchitis Acute ESRD on hemodialysis Acute Epistaxis Acute Hypoxia Acute Anemia Acute Community acquired pneumonia Acute Coronary arteriosclerosis after percutaneous transluminal coronary angioplasty ( PTCA) Acute End stage renal disease Acute GI bleeding Acute Hypertension due to end stage renal disease on dialysis Acute Hypotension Acute Lower GI bleed Acute Non-ST elevation (NSTEMI) myocardial infarction Acute Non-ST elevation myocardial infarction (NSTEMI) due to mismatch of myocardial oxygen supply and demand Acute Rectal bleeding Acute Renal failure Acute
[2018-10-21] MEDS: LISINOPRIL 40 MG TAB PO SCH (13:35)
[2018-10-21] MEDS: hydrALAZINE 25 MG TAB PO SCH ×2 (13:35→21:53)
--- NOTE | 2018-10-21 13:43 | ASMTCMCOM ---
CM Note CM Note Notes: Pt is a 78 y/o man admitted for bronchitis, epistaxis, and hypoxia. Pts case discussed w/ Dr. Craig. Pt is getting dialyzed today and will most likely d/c independent without any needs. No therapies ordered at this time. CM available for changes. Plan: Independent Date Signed: 10/21/2018 01:43 PM Electronically Signed By:HARRY Jacobo
[2018-10-21] MEDS: CALCIUM CARBONATE 500 MG CHEWABLE TAB PO PRN (13:46)
--- NOTE | 2018-10-21 15:05 | ECHO ---
[email or web address] [address] [address] Main: [phone] Echocardiography Examination Transthoracic Name: WILIAM SUTHERLAND MR#: [id number] Study Date: 10/21/2018 Study Time: 02:01 PM Date of : 1940 Age: 78 year(s) Height: 167.6 cm (66 in.) Weight: 76.66 kg (169 lb.) BSA: 1.86 m2 Gender: Male Examination: Echo Contrast: Image Quality: Excellent Rhythm: Tachycardia Heart Rate: 104 bpm BP: 184 mmHg/95 mmHg Indication: Hypoxia, RSV Procedure Staff Referring Physician: Plant Science Professor: Yoni Stern RDCS Reading Physician: Kike Fernandez MD Requesting Provider: Ordering Physician: Ranjith Craig Indication: Hypoxia, RSV Measurements Chambers AV/MV Label Value Normal Value Label Value Normal Value IVSd, 2D 1.1 cm (0.6cm - 1.1cm) AR PHT 0.77 s LVDd, 2D 5 cm (4.2cm - 5.9cm) AR PHT 766 ms LVDs, 2D 2.8 cm (2.1cm - 4cm) AR Vmax 3.94 m/s LVEF, 2D 74 % (54% - 74%) AV PGmax 21 mmHg LVOT PGmax 8 mmHg AV PGmean 10 mmHg LVOT PGmean 4 mmHg AV Vmax, Caliper 2.29 m/s LVOT Vmax 1.45 m/s (0.7m/s - 1.1m/s) SOFÍA (continuity eq. 2.2 cm2 LVOT Vmean 0.85 m/s Vmax) LVOTd 2.1 cm (1.9cm - 2.1cm) SOFÍA D (continuity eq. 2.5 cm2 LVPWd, 2D 1.1 cm (0.6cm - 1cm) VTI) RVDd, 2D 2.6 cm (1.9cm - 3.8cm) MV A Vmax 0.91 m/s TAPSE 2.5 cm MV E' lateral 0.07 m/s LAESV index, MOD2 58.6 ml/m2 MV E' mean 0.08 m/s RA Area 20.9 cm2 MV E' septal 0.09 m/s Additional Vessels MV E Vmax 1.2 m/s Label Value Normal Value MV E/A 1.32 AoRoot, MM 3.5 cm (2.2cm - 3.7cm) MV E/E' lateral 17.6 MV E/E' mean 15 MV E/E' septal 12.8 (0.45 - 1.25) Patient: WILIAM SUTHERLAND Study Date: 10/21/2018 Page 1 of 3 02:01 PM TV/PV Label Value Normal Value RA Pressure 5 mmHg RVSP 54 mmHg TR Pmax 49 mmHg TR Vmax 3.49 m/s PV PGmax 9 mmHg PV Vmax, Caliper 1.51 m/s (0.6m/s - 0.9m/s) Conclusions The patient has findings 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 Left Ventricle: Left ventricle is normal in size. Normal global systolic left ventricular function. Grade II Diastolic Dysfunction. Left Atrium: The left atrium is severely dilated. Right Atrium: The right atrium is mildly to moderately dilated. Aortic Valve: There is no aortic stenosis. Aortic leaflets exhibit mild calcification. Tricuspid Valve: Mild tricuspid regurgitation. Right Ventricular systolic pressure is measured at 54 mmHg. Pulmonary artery pressure moderately increased. Findings Left Ventricle: Left ventricle is normal in size. Normal global systolic left ventricular function. The ejection fraction, measured by 2D, is 74 %. There is mild concentric left ventricular hypertrophy. Grade II Diastolic Dysfunction. Right Ventricle: Normal size right ventricle. The RV function appears grossly normal. Left Atrium: The left atrium is severely dilated. Right Atrium: The right atrium is mildly to moderately dilated. Mitral Valve: Trivial mitral regurgitation. No mitral valve stenosis. There is mild mitral calcification. Aortic Valve: Mild aortic regurgitation is present. There is no aortic stenosis. Aortic leaflets exhibit mild calcification. Tricuspid Valve: Mild tricuspid regurgitation. Right Ventricular systolic pressure is measured at 54 mmHg. Pulmonary artery pressure moderately increased. Pulmonic Valve: No pulmonic valve regurgitation is evident. Aorta: Patient: WILIAM SUTHERLAND Study Date: 10/21/2018 Page 2 of 3 02:01 PM The aortic root is normal size. The aortic root size in M-mode measures 3.5 cm. Aorta Measurements AoRoot, MM is 3.5 cm. Pericardium: No pericardial effusion. Exam Details Procedure Ordered: Echo Procedure Status: Routine study Image Quality: Excellent Facility Location: Cardiac Echo 1 (No Signature Object) Patient: WILIAM SUTHERLAND Study Date: 10/21/2018 Page 3 of 3 02:01 PM [id number]
--- NOTE | 2018-10-21 15:13 | PDCARPN ---
Cardiology Progress Note Chief Complaint: Cough Assessment/Plan: Assessment: Cleve is a 78 y/o M with a history of HTN, HLP, KS, ESRD on dialysis, anemia, and CAD s/p stenting to the LAD admitted with RSV and epistaxis. Cards was consulted to assess his need for a stress test. He admitts to one episode of CP which occurred during dialysis 8 weeks ago. He denies any further chest discomfort. He denies any exertional chest discomfort prior to RSV. A echo today showed preserved LV function with grade II DD. A month ago he was walking up 3 flights of stairs without angina. Plan: 1. CAD- no further CP and his echo shows preserved LV function without wall motion abnormalities. I would recommend he follow up with Dr. Fernandez once he has recovered from RSV. If continues to complain of HANDLEY and CP at that time I would recommend a stress test. He currently denies any symptoms suggestive of angina. 10/21/18 16:06 Subjective: He is complaining of a productive cough and SOB. He denies any CP Objective: Vital Signs (8 Hrs) Temp Pulse Resp BP Pulse Ox 10/21/18 13:40 88 18 93 10/21/18 13:35 184/95 H 10/21/18 11:52 36.6 C 90 20 185/103 H 94 10/21/18 09:40 84 18 98 10/21/18 07:29 36.6 C 75 16 160/98 H 97 Intake/Output (24 Hrs) 10/20/18 10/21/18 10/22/18 05:59 05:59 05:59 Intake Total 500 Balance 500 Intake: Oral (ml) 500 Other: Weight 76.748 kg Intake Quantity Yes Sufficient Number of Voids Toilet 1 Number of Stools Toilet 1 Result Diagrams: 10/21/18 09:00 10/21/18 07:06 - Physical Exam Constitutional: no apparent distress Cardiovascular: regular rate and rhythm, systolic murmur Respiratory: other (positive rhonchi) Skin: no edema Neurologic: AAOx3 ICD10 Worksheet Patient Problems: Problems Problem Status Onset Acute bronchitis Acute ESRD on hemodialysis Acute Epistaxis Acute Hypoxia Acute Anemia Acute Community acquired pneumonia Acute Coronary arteriosclerosis after percutaneous transluminal coronary angioplasty ( PTCA) Acute End stage renal disease Acute GI bleeding Acute Hypertension due to end stage renal disease on dialysis Acute Hypotension Acute Lower GI bleed Acute Non-ST elevation (NSTEMI) myocardial infarction Acute Non-ST elevation myocardial infarction (NSTEMI) due to mismatch of myocardial oxygen supply and demand Acute Rectal bleeding Acute Renal failure Acute
[2018-10-21] MEDS: GUAIFENESIN/DM 10 ML UDCUP PO PRN ×2 (16:23→21:53)
[2018-10-21] MEDS: OXYMETAZOLINE 30 ML NASAL SPRAY EACHNARE SCH ×2 (17:38→21:54)
--- NOTE | 2018-10-21 20:46 | HOSPPROG ---
Hospitalist Progress Note Assessment/Plan: 78 yo M w rsv here w nosebleed 1. afrin soaked tampon unsuccessful after 60 minutes 2. nasal muricel covered in bacitracin w surgicel on top placed in nose no difficulty w placement amoxicillin started BLEEDING STOPPED AFTER PLACEMENT 3. when removing nasal packing, ENSURE SURGICEL MESH COMES OUT 65 MINUTES CARE Subjective: 2 bedside visits for refractory nosebleed Objective: Vital Signs Temp Pulse Resp BP Pulse Ox 36.9 C 94 20 174/90 H 95 10/21/18 20:00 10/21/18 20:00 10/21/18 20:00 10/21/18 20:00 10/21/18 20:00 Laboratory Results 10/21/18 09:00 10/21/18 07:06 10/20/18 10/21/18 10/22/18 05:59 05:59 05:59 Intake Total 500 Balance 500 - Physical Exam Constitutional: no apparent distress Ears, Nose, Mouth, Throat: other (L nare w brisk bleeding) ICD10 Worksheet Patient Problems: Problems Problem Status Onset Acute bronchitis Acute ESRD on hemodialysis Acute Epistaxis Acute Hypoxia Acute Anemia Acute Community acquired pneumonia Acute Coronary arteriosclerosis after percutaneous transluminal coronary angioplasty ( PTCA) Acute End stage renal disease Acute GI bleeding Acute Hypertension due to end stage renal disease on dialysis Acute Hypotension Acute Lower GI bleed Acute Non-ST elevation (NSTEMI) myocardial infarction Acute Non-ST elevation myocardial infarction (NSTEMI) due to mismatch of myocardial oxygen supply and demand Acute Rectal bleeding Acute Renal failure Acute
[2018-10-21] MEDS: GABAPENTIN 100 MG CAP PO SCH (21:53)
--- NOTE | 2018-10-22 07:41 | PDMN ---
Medical Necessity Medical necessity: Change to IP, as of 10/21/18, per MD; los >2 mn for ongoing management of dyspnea, cough & epistaxis; requiring further monitoring, Afrin trial & respiratory supportive care; hx recent hospitalization for RSV, ERSD on HD, CAD, anemia & thrombocytopenia
[2018-10-22] MEDS: predniSONE 20 MG TAB PO SCH (10:06)
[2018-10-22] MEDS: FERROUS SULFATE 325 MG TAB PO SCH (10:06)
[2018-10-22] MEDS: CHOLECALCIFEROL VIT D3 1,000 UNITS TAB PO SCH (10:08)
[2018-10-22] MEDS: hydrALAZINE 25 MG TAB PO SCH ×2 (10:08→21:03)
[2018-10-22] MEDS: LISINOPRIL 40 MG TAB PO SCH (10:08)
[2018-10-22] MEDS: OXYMETAZOLINE 30 ML NASAL SPRAY EACHNARE SCH ×2 (10:09→21:04)
[2018-10-22] MEDS: ACETAMINOPHEN 325 MG TAB PO PRN (10:11)
[2018-10-22] MEDS: GUAIFENESIN/DM 10 ML UDCUP PO PRN ×2 (10:15→21:03)
[2018-10-22] MEDS: GABAPENTIN 100 MG CAP PO SCH (21:03)
--- NOTE | 2018-10-22 21:09 | HOSPPROG ---
Hospitalist Progress Note Assessment/Plan: 78yo M with ESRD on HD recently discharged after short stay for RSV bronchitis presents with nose bleed and ongoing respiratory symptoms. #Cough, dyspnea: Multifactorial from resolving bronchitis, pulmonary edema - no indication of bacterial infection -continue symptom management -consider repeat CXR if not improved after HD/volume reduction tomorrow #Decreased exercise intolerance: Worsened cardiomegaly on CXR. ? angina as outpatient but none here. - TTE reviewed - Cardiology consult appreciated - Last cath 07/27 without high grade stenosis and patent coronary stents #Epistaxis: Initially resolved after cauterization in ED - rhino rocket in place since last nt -consider ENT for removal tomorrow #RSV bronchitis - Continue prednisone 20mg/d, duonebs prn, cough meds - Contact/droplet precautions #ESRD on HD: Normally dialyzes MWF - discussed with Dr Garcia -plan for HD tomorrow and possible discharge afterwards #CAD s/p stent -Continue aspirin -cardiology recommendations revwd #HTN: BP elevated on admit in setting of missing HD -Continue home meds, but still elevated -adjust meds if remains elevated post HD per cardiology recommendations #Acute hypoxia: Resolved. #Anemia of renal disease: Hgb at goal. #Chronic thrombocytopenia: Stable. #CARROLL with nocturnal oxygen dependence PCP- nephrology DVT prophy: subQ heparin Code: full Dispo: possibly dc tomorrow Subjective: Uncomfortable with nose packing. Coughing still but denies SOB. Denies CP/abd pain. Objective: Vital Signs Temp Pulse Resp BP Pulse Ox 98.1 F 89 18 188/98 H 96 10/22/18 20:00 10/22/18 20:00 10/22/18 20:00 10/22/18 20:00 10/22/18 20:00 Laboratory Results 10/22/18 06:06 10/21/18 10/22/18 10/23/18 11:59 11:59 11:59 Intake Total 100 Balance 100 - Time Spent With Patient Time Spent with Patient: greater than 25 minutes Time Spent with Patient: Greater than 25 minutes spent on this patients care, greater than 50% of time spent counseling, educating, and coordinating care regarding the above mentioned plan. - Physical Exam Constitutional: no apparent distress, not in pain Eyes: anicteric sclera Ears, Nose, Mouth, Throat: moist mucous membranes, hearing normal Cardiovascular: regular rate and rhythym Respiratory: no respiratory distress, rhonchi, other (coarse cough throughout with faint crackles at B bases, no wheezes) Gastrointestinal: normoactive bowel sounds, soft, non-tender abdomen, No distension Skin: warm Neurologic: other (non focal) Psychiatric: interacting appropriately, not anxious, not encephalopathic ICD10 Worksheet Patient Problems: Problems Problem Status Onset Lower GI bleed Acute Rectal bleeding Acute Anemia Acute End stage renal disease Acute GI bleeding Acute Renal failure Acute Coronary arteriosclerosis after percutaneous transluminal coronary angioplasty ( PTCA) Acute Non-ST elevation (NSTEMI) myocardial infarction Acute Non-ST elevation myocardial infarction (NSTEMI) due to mismatch of myocardial oxygen supply and demand Acute Hypotension Acute Community acquired pneumonia Acute ESRD on hemodialysis Acute Hypertension due to end stage renal disease on dialysis Acute Epistaxis Acute Acute bronchitis Acute Hypoxia Acute Pulmonary congestion Acute
[2018-10-23 06:17] LABS: PLATELET COUNT 151 10^3/uL (150-400)
--- NOTE | 2018-10-23 11:05 | SOAPPROG ---
SOAP Progress Note Assessment/Plan: Assessment: Cleve is well known to me. He has a history of ESRD related to HTN. He was initially on PD, but converted to HD and remains with Dr. Soria at the [facility] on a TTS schedule. His dialysis is going fine in general, although he likely has some chronic volume overload, and his BP is typically above goal. Cleve was just admitted recently with RSV bronchitis. He was DC'd, but returned with epistaxis. This resolved with treatment in the ER. 1. ESRD Stable HD today. Repeat tomorrow to put back on schedule. 2. Epistaxis Called ENT today. They are to see today 3. HTN Above goal. Given CAD, add Beta Karime. 4. Anemia At goal. Subjective: Doing ok Objective: Vital Signs Temp Pulse Resp BP Pulse Ox 36.8 C 84 16 164/96 H 94 10/23/18 08:00 10/23/18 08:00 10/23/18 08:00 10/23/18 08:00 10/23/18 08:00 Laboratory Results 10/23/18 06:00 10/23/18 06:00 10/22/18 10/23/18 10/24/18 05:59 05:59 05:59 Intake Total 100 300 Balance 100 300 Physical Exam - Physical Exam General Appearance: no apparent distress Respiratory: decreased breath sounds Cardiac/Chest: regular rate, rhythm Extremities: normal inspection Neuro/Psych: oriented x 3 ICD10 Worksheet Patient Problems: Problems Problem Status Onset Lower GI bleed Acute Rectal bleeding Acute Anemia Acute End stage renal disease Acute GI bleeding Acute Renal failure Acute Coronary arteriosclerosis after percutaneous transluminal coronary angioplasty ( PTCA) Acute Non-ST elevation (NSTEMI) myocardial infarction Acute Non-ST elevation myocardial infarction (NSTEMI) due to mismatch of myocardial oxygen supply and demand Acute Hypotension Acute Community acquired pneumonia Acute ESRD on hemodialysis Acute Hypertension due to end stage renal disease on dialysis Acute Epistaxis Acute Acute bronchitis Acute Hypoxia Acute Pulmonary congestion Acute
[2018-10-23] MEDS: ACETAMINOPHEN 325 MG TAB PO PRN (11:35)
[2018-10-23] MEDS: CALCIUM CARBONATE 500 MG CHEWABLE TAB PO PRN ×2 (11:35→19:33)
[2018-10-23] MEDS: FERROUS SULFATE 325 MG TAB PO SCH (11:37)
[2018-10-23] MEDS: NEPHROVITE FOLIC ACID/VIT B&C 1 TAB PO SCH (11:37)
[2018-10-23] MEDS: hydrALAZINE 25 MG TAB PO SCH ×2 (11:37→19:34)
[2018-10-23] MEDS: CHOLECALCIFEROL VIT D3 1,000 UNITS TAB PO SCH (11:37)
[2018-10-23] MEDS: OXYMETAZOLINE 30 ML NASAL SPRAY EACHNARE SCH ×2 (11:38→20:17)
[2018-10-23] MEDS: LISINOPRIL 40 MG TAB PO SCH (11:38)
[2018-10-23] MEDS: METOLAZONE 5 MG TAB PO SCH (11:38)
[2018-10-23] MEDS: predniSONE 20 MG TAB PO SCH (11:38)
--- NOTE | 2018-10-23 12:41 | ASMTCMCOM ---
CM Note CM Note Notes: Pts case discussed w/ Dr. Salinas. Pt is going down to [facility] for rhino rocket. Pt should d/c independent when medically stable. Pt receives MWF dialysis. CM available for changes. Plan: Independent Date Signed: 10/23/2018 12:41 PM Electronically Signed By:HARRY Jacobo
[2018-10-23] MEDS: GUAIFENESIN/DM 10 ML UDCUP PO PRN ×2 (15:06→19:33)
--- NOTE | 2018-10-23 15:47 | GCON ---
[f rep st] CONSULTATION ENT CONSULTATION NOTE DATE OF CONSULTATION: 10/23/2018 REASON FOR CONSULTATION: Left-sided epistaxis. HISTORY: The patient is an 78-year-old man who was initially hospitalized for pulmonary reasons. Wh ile in the hospital, he was on subcu heparin, as well as has his normal daily baby aspirin of 81 mg. He was briefly discharged home, but suffered a recurrence of the epistaxis and returned to the [facility]. He has had a left-sided Rapid Rhino pack in place for 2 days. The hospitalists were hoping to discharge him home and requested consultation in hopes that his nasal pack could be removed. The pat ient denies any prior history of epistaxis. PHYSICAL EXAM: GENERAL: He is awake, alert, and oriented x3. 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 HEENT: Ear exam is unremarkable. Nasal exam shows a left-sided Rapid Rhino pack. Oral cavity exam is clear of any abnormalities. PROCEDURE: The left Rapid Rhino was removed. There was some excoriated mucosa on the left mid septu m. The nose was topically decongested and anesthetized with phenylephrine and lidocaine solution. The f lexible scope was then passed through the left side of the nose. No other bleeding sites were locate d. Nasopharyngeal exam was normal. Endoscopic placement of a piece of Surgicel was then performed p lacing Surgicel over the raw area, which was very slowly seeping a little bit of blood. This brought about good hemostasis. IMPRESSION: Left-sided epistaxis in a patient who had previously been on subcu heparin and aspirin. The heparin has been held since this rehospitalization. I recommended he stop the aspirin for 3 day s minimum. He will contact the cardiology office, although he said that he feels that there should b e no trouble with him stopping it for a week. 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 He will come back and see us in followup in 7 to 10 days. ank you for this consultation. /[id number]/MODL
[2018-10-23] MEDS: CARVEDILOL 3.125 MG TAB PO SCH (18:42)
[2018-10-23] MEDS: GABAPENTIN 100 MG CAP PO SCH (19:33)
--- NOTE | 2018-10-23 21:01 | HOSPPROG ---
Hospitalist Progress Note Assessment/Plan: 78yo M with ESRD on HD recently discharged after short stay for RSV bronchitis presents with nose bleed and ongoing respiratory symptoms. #Cough, dyspnea: Multifactorial from resolving bronchitis, pulmonary edema - no indication of bacterial infection -continue symptom management -improved since yesterday, post HD today #Decreased exercise intolerance: Worsened cardiomegaly on CXR. ? angina as outpatient but none here. - TTE reviewed - Cardiology consult appreciated - Last cath 07/27 without high grade stenosis and patent coronary stents #Epistaxis: Initially resolved after cauterization in ED -appreciate ENT assistance -rhino rocket out, has surgicel in place and no further bleeding noted -will FU with ENT as outpt #RSV bronchitis - Continue prednisone 20mg/d, duonebs prn, cough meds - Contact/droplet precautions -improving #ESRD on HD: Normally dialyzes MWF -discussed with Dr Garcia -will stay overnt, plan for HD tomorrow and discharge afterwards (and resume nl schedule with HD next week) #CAD s/p stent -Continue aspirin -cardiology recommendations revwd -add coreg #HTN: BP elevated on admit in setting of missing HD -Continue home meds -coreg added today #Acute hypoxia: Resolved. #Anemia of renal disease: Hgb at goal. #Chronic thrombocytopenia: Stable. #CARROLL with nocturnal oxygen dependence PCP- nephrology DVT prophy: subQ heparin Code: full Dispo: plan for dc tomorrow after HD Subjective: [place] good in AM after dialysis and was ready to go home (lives alone at a senior apartment), but was very tired after ENT/rhinorocket removal. Needs HD again tomorrow and takes bus! No n/v. Has had several stools today too. Objective: Vital Signs Temp Pulse Resp BP Pulse Ox 97.6 F 82 18 141/79 H 97 10/23/18 19:41 10/23/18 19:41 10/23/18 19:41 10/23/18 19:41 10/23/18 19:41 Laboratory Results 10/23/18 06:00 10/23/18 06:00 10/22/18 10/23/18 10/24/18 11:59 11:59 11:59 Intake Total 100 300 540 Output Total 3000 Balance 100 -2700 540 - Physical Exam Constitutional: no apparent distress, not in pain, other (tired) Eyes: anicteric sclera Ears, Nose, Mouth, Throat: moist mucous membranes, hearing normal Cardiovascular: regular rate and rhythym Respiratory: no respiratory distress, other (minimal coughing), No rhonchi Gastrointestinal: normoactive bowel sounds, soft, non-tender abdomen, No guarding, No rebound, No distension Skin: warm Neurologic: other (non focal) Psychiatric: interacting appropriately, not anxious, not encephalopathic ICD10 Worksheet Patient Problems: Problems Problem Status Onset Acute bronchitis Acute ESRD on hemodialysis Acute Epistaxis Acute Hypoxia Acute Pulmonary congestion Acute Anemia Acute Community acquired pneumonia Acute Coronary arteriosclerosis after percutaneous transluminal coronary angioplasty ( PTCA) Acute End stage renal disease Acute GI bleeding Acute Hypertension due to end stage renal disease on dialysis Acute Hypotension Acute Lower GI bleed Acute Non-ST elevation (NSTEMI) myocardial infarction Acute Non-ST elevation myocardial infarction (NSTEMI) due to mismatch of myocardial oxygen supply and demand Acute Rectal bleeding Acute Renal failure Acute
[2018-10-24] MEDS: METOLAZONE 5 MG TAB PO SCH (09:47)
[2018-10-24] MEDS: CARVEDILOL 3.125 MG TAB PO SCH (09:48)
[2018-10-24] MEDS: LISINOPRIL 40 MG TAB PO SCH (09:48)
[2018-10-24] MEDS: NEPHROVITE FOLIC ACID/VIT B&C 1 TAB PO SCH (09:48)
[2018-10-24] MEDS: FERROUS SULFATE 325 MG TAB PO SCH (09:48)
[2018-10-24] MEDS: CHOLECALCIFEROL VIT D3 1,000 UNITS TAB PO SCH (09:48)
[2018-10-24] MEDS: hydrALAZINE 25 MG TAB PO SCH (09:49)
[2018-10-24] MEDS: OXYMETAZOLINE 30 ML NASAL SPRAY EACHNARE SCH (09:49)
[2018-10-24] MEDS: predniSONE 20 MG TAB PO SCH (09:49)
[2018-10-24] MEDS: CALCIUM CARBONATE 500 MG CHEWABLE TAB PO PRN (09:54)
--- NOTE | 2018-10-24 15:40 | SOAPPROG ---
SOAP Progress Note Assessment/Plan: Assessment: ESRD, tolerated HD without difficulty today Epistaxis resolved Plan: HD today home when OK with others follow up outpatient HD usual day and time 10/24/18 15:38 Subjective: spirits good wants to go home moving into a new apartment and wants to get unpacked no cp sob nausea or vomiting appetite and energy OK slept fine Objective: Vital Signs Temp Pulse Resp BP Pulse Ox 36.8 C 79 16 165/95 H 95 10/24/18 07:03 10/24/18 07:03 10/24/18 07:03 10/24/18 07:03 10/24/18 07:03 Laboratory Results 10/23/18 06:00 10/24/18 10:46 10/23/18 10/24/18 10/25/18 05:59 05:59 05:59 Intake Total 300 1040 Output Total 3000 Balance 300 -1960 Physical Exam - Physical Exam General Appearance: alert, no apparent distress Neck: normal inspection Respiratory: No rales, No rhonchi, No wheezing Cardiac/Chest: systolic murmur, No edema, No friction rub Abdomen: normal bowel sounds, non-tender, soft Extremities: No swelling Neuro/Psych: alert, normal mood/affect, oriented x 3 ICD10 Worksheet Patient Problems: Problems Problem Status Onset Acute bronchitis Acute ESRD on hemodialysis Acute Epistaxis Acute Hypoxia Acute Pulmonary congestion Acute Anemia Acute Community acquired pneumonia Acute Coronary arteriosclerosis after percutaneous transluminal coronary angioplasty ( PTCA) Acute End stage renal disease Acute GI bleeding Acute Hypertension due to end stage renal disease on dialysis Acute Hypotension Acute Lower GI bleed Acute Non-ST elevation (NSTEMI) myocardial infarction Acute Non-ST elevation myocardial infarction (NSTEMI) due to mismatch of myocardial oxygen supply and demand Acute Rectal bleeding Acute Renal failure Acute
[2018-10-24 15:50] VITALS: BP 151/84
== END 2018-10-24 18:11 | disposition home or self-care (01) | DRG 150 ==
LOC: F3E 13:52 → OBSVTOIN 10-21 17:09
PROVIDERS: ADMIT Internal Medicine; ATTEND Internal Medicine
PROC: 095KXZZ Destruction of Nasal Mucosa and Soft Tissue, External Approach (ICD-10-PCS; principal; 2018-10-20)
PROC: 5A1D70Z Performance of Urinary Filtration, Intermittent, Less than 6 Hours Per Day (ICD-10-PCS; 2018-10-21)
DX: R04.0 Epistaxis (principal); I12.0 Hypertensive chronic kidney disease with stage 5 chronic kidney disease or end stage renal disease; N18.6 End stage renal disease; J20.5 Acute bronchitis due to respiratory syncytial virus; R09.02 Hypoxemia; D63.1 Anemia in chronic kidney disease; D69.6 Thrombocytopenia, unspecified; I25.10 Atherosclerotic heart disease of native coronary artery without angina pectoris; G47.33 Obstructive sleep apnea (adult) (pediatric); Z95.5 Presence of coronary angioplasty implant and graft
CPT/HCPCS: 97161-GP; G0378; J1644; J7512; J7613

== ENCOUNTER 2019-01-11 11:45 | Inpatient (IN) | payer OTHER ==
--- NOTE | 2019-01-11 12:43 | EDPHY ---
H & P Stated Complaint: Rectal bleeding noted today. Time Seen by Provider: 01/11/19 12:43 HPI/ROS: HPI CHIEF COMPLAINT: Bright red blood per rectum. HISTORY OF PRESENT ILLNESS: Patient is a very pleasant 78-year-old male, history of end-stage renal disease on hemodialysis Saturday, coronary disease, hypertension, history of diverticular bleed with sigmoid colectomy, presents emergency room with bright red blood x3 episodes today. No black tarry stools. No vomiting. No significant abdominal pain. Denies chest pain or shortness of breath, denies generalized weakness. States he woke up and noticed bright red blood per rectum. He has had this before due to diverticular bleed. Past Medical History: History of end-stage renal disease, coronary artery disease, hypertension, diverticular bleed Past Surgical History: Left arm av fistula, sigmoid colectomy Social History: Denies drugs alcohol tobacco. Family History: Noncontributory ROS REVIEW OF SYSTEMS: 10 Systems were reviewed and negative with the exception of the elements mentioned in the history of present illness. Exam Constitutional nontoxic triage nursing summary reviewed, vital signs reviewed, awake/alert. Hypertensive noted at triage. Eyes normal conjunctivae and sclera, EOMI, PERRLA. HENT normal inspection, atraumatic, moist mucus membranes, no epistaxis, neck supple/ no meningismus, no raccoon eyes. Respiratory clear to auscultation bilaterally, normal breath sounds, no respiratory distress, no wheezing. Cardiovascular rate normal, regular rhythm, no murmur, no edema, distal pulses normal. Gastrointestinal soft, non-tender, no rebound, no guarding, normal bowel sounds, no distension, no pulsatile mass. Genitourinary no CVA tenderness. Musculoskeletal no midline vertebral tenderness, full range of motion, no calf swelling, no tenderness of extremities, no meningismus, good pulses, neurovascularly intact. Skin pink, warm, & dry, no rash, skin atraumatic. Neurologic awake, alert and oriented x 3, AAOx3, moves all 4 extremities equally, motor intact, sensory intact, CN II-XII intact, normal cerebellar, normal vision, normal speech. Psychiatric normal mood/affect. Heme/Lymph/Immune no lymphadenopathy. Differential Diagnosis: Includes but is not limited to in a particular order diverticular bleed, colitis, rectal bleed number upper GI bleed, lower GI bleed Medical Decision Making: Plan for this patient IV establishment type and screen , basic labs, will most likely admit for rectal bleeding. 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 No significant bleeding on exam. H&H are stable. Plan for admission for GI bleed. Most likely diverticular given his history of diverticular bleed. Type and screen sent. Plan for admission to the hospitalist service. Creatinine is 8. Consistent with end-stage renal disease, potassium is normal. 1446: I spoke with Dr. Judd, discussed case in detail about hematochezia, bright red blood per rectum, hemodynamically stable, H&H stable. In notified me that we do not have endoscopy, however the patient is stable and Dr. Judd believes that he can be admitted to the hospital. Dr. Judd is fine with patient be admitted to the hospitalist service. Dr. Craig, consult Medicine Service. Agrees to admit the patient. The patient at this time 2:49 p.m. Is hemodynamically stable no acute distress. There has been no significant bleeding here in the ER. H&H reviewed. Vital signs reviewed. 1500: patient updated agrees for admission. I did discuss that GI will see him tomorrow morning for further evaluation. We also discussed limited scope capabilities today. He requested to be admitted here and does not want to be transferred anywhere else. He understands to be observed today. Is comfortable being admitted comfortable this plan. Source: Patient - Medical/Surgical History Hx Asthma: No Hx Chronic Respiratory Disease: No Hx Diabetes: No Hx Cardiac Disease: Yes Hx Renal Disease: Yes Hx Cirrhosis: No Hx Alcoholism: No Hx HIV/AIDS: No Hx Splenectomy or Spleen Trauma: No Other PMH: dialysis, sleep apnea,KIDNEY DISEASE L ARM FISTULA, COLON SURGERY FOR BLEEDING DIVERTICULUM, LA,STENTS, HIP SURGERY. HTN, DM II - Social History Smoking Status: Never smoked Constitutional: Initial Vital Signs Temperature (C) 36.8 C 01/11/19 11:53 Heart Rate 90 01/11/19 11:53 Respiratory Rate 16 01/11/19 11:53 Blood Pressure 225/100 H 01/11/19 11:53 O2 Sat (%) 94 01/11/19 11:53 O2 Delivery Mode Room Air Allergies/Adverse Reactions: No Known Allergies Allergy (Verified 10/20/18 09:33) Home Medications: Medication Instructions Recorded Aspirin [Aspirin 81mg (*)] 81 mg PO DAILY 07/11/18 Calcium Carbonate [Tums 500MG (*)] 500 mg PO HS 07/11/18 Cholecalciferol Vit D3 [Vitamin D3 1,000 units PO DAILY 07/11/18 (*)] Folic Acid/Vit B Com W/C 1 each PO DAILY 07/11/18 [Nephro-Arcadio Rx] Gabapentin [Neurontin 100 MG (*)] 200 mg PO HS 07/11/18 Herbals/Supplements -Info Only 1 ea PO DAILY 07/11/18 Lisinopril [Zestril 40 mg (*)] 40 mg PO DAILY 07/11/18 Metolazone [Zaroxolyn 5MG (*)] 5 mg PO DAILY 07/11/18 amLODIPine BESYLATE [Norvasc 10 mg 10 mg PO DAILY 07/11/18 (*)] C/E/Zn/Cu/OM3/DHA/EPA/LUT/ZEAX 1 each PO DAILY 10/17/18 [Preservision Areds 2 Softgel] Ferrous Sulfate [Ferrous Sulf 325 325 mg PO DAILY 10/17/18 MG (*)] hydrALAZINE [Apresoline] 25 mg PO BID 10/17/18 Medical Decision Making - Data Points Laboratory Results: Laboratory Results 01/11/19 13:35 01/11/19 13:35 Medications Given: Amlodipine Besylate (Norvasc) 10 mg PO DAILY [facility] Stop: 07/11/19 08:59 Last Admin: 01/12/19 08:58 Dose: 10 mg Calcium Carbonate (Tums) 500 mg PO HS [facility] Stop: 07/10/19 20:59 Last Admin: 01/11/19 22:01 Dose: 500 mg Cholecalciferol (Vitamin D) 1,000 units PO DAILY [facility] Stop: 07/11/19 08:59 Last Admin: 01/12/19 08:59 Dose: 1,000 units Ferrous Sulfate (Ferrous Sulfate) 325 mg PO DAILY [facility] Stop: 07/11/19 08:59 Last Admin: 01/12/19 08:59 Dose: 325 mg Gabapentin (Neurontin) 200 mg PO HS [facility] Stop: 07/10/19 20:59 Last Admin: 01/11/19 22:01 Dose: 200 mg Hydralazine HCl (Apresoline) 25 mg PO BID [facility] Stop: 07/10/19 20:59 Last Admin: 01/12/19 08:58 Dose: 25 mg Lisinopril (Zestril) 40 mg PO DAILY [facility] Stop: 07/11/19 08:59 Last Admin: 01/12/19 08:58 Dose: 40 mg Vitamin B Complex/Vit C/Folic Acid (Patience-Arcadio) 1 each PO DAILY [facility] Stop: 07/11/19 08:59 Last Admin: 01/12/19 08:59 Dose: 1 each Discontinued Medications Epoetin Nam-epbx (Retacrit) 2,000 unit IVP ONCE ONE Stop: 01/12/19 11:51 Last Admin: 01/12/19 12:13 Dose: 2,000 unit Departure - Departure Disposition: [facility] Inpatient Acute Clinical Impression: GI bleed Qualifiers: GI bleed type/associated pathology: anorectal hemorrhage Qualified Code(s): K62.5 - Hemorrhage of anus and rectum
[2019-01-11 13:54] LABS: PLATELET COUNT 144 10^3/uL (150-400)
[2019-01-11 14:04] LABS: INR 1.16 (0.83-1.16); PROTIME(PATIENT) 14.3 SEC (12.0-15.0)
[2019-01-11] MEDS ORDERED: ONDANSETRON 4 MG/2 ML VIAL IVP PRN (15:23)
[2019-01-11] MEDS ORDERED: HYDROmorphONE/DILAUDID 1 MG/ML INJ IVP PRN (15:23)
[2019-01-11] MEDS ORDERED: oxyCODONE IR 5 MG TAB PO PRN (15:23)
[2019-01-11] MEDS ORDERED: ACETAMINOPHEN 325 MG TAB PO PRN (15:23)
[2019-01-11] MEDS ORDERED: ONDANSETRON DISINTEGRATING 4 MG TAB PO PRN (15:23)
--- NOTE | 2019-01-11 15:32 | PDGENHP ---
History and Physical - Chief Complaint bright red blood in stools - History of Present Illness 78yo M with ESRD on HD, CAD/TX s/p PCI, sigmoid colectomy due to recurrent diverticular bleeds presents with blood in stool. Started this AM. Three episodes so far. Blood mixed in with stool. No abdominal pain. No dizziness, lightheadedness, or chest pain. In the ED, his hemoglobin was 10.1 which is his baseline. He has been hemodynamically stable and not tachycardic. His last HE was 2 days ago (on MWF schedule) and tolerated well. GI was consulted in the ED. Of note, he was last here for GI bleeding 06/2018. Underwent tagged RBC scan and CTA of his abdomen which showed acute diverticular bleeding at the hepatic flexure. GI, IR, and surgery were consulted. His bleeding stopped spontaneously. Ultimately ended up undergoing colonoscopy which showed healthy colo-colonic anastomosis and numerous diverticuli but no source of bleeding. He has had no issues with GI bleeding since then. History Information - Allergies/Home Medication List Allergies/Adverse Reactions: No Known Allergies Allergy (Verified 10/20/18 09:33) Home Medications: Aspirin [Aspirin 81mg (*)] 81 mg PO DAILY 07/11/18 [Last Taken 01/11/19] Calcium Carbonate [Tums 500MG (*)] 500 mg PO HS 07/11/18 [Last Taken 01/10/19] Cholecalciferol Vit D3 [Vitamin D3 (*)] 1,000 units PO DAILY 07/11/18 [Last Taken 01/11/19] Folic Acid/Vit B Com W/C [Nephro-Arcadio Rx] 1 each PO DAILY 07/11/18 [Last Taken 01/11/19] Gabapentin [Neurontin 100 MG (*)] 200 mg PO HS 07/11/18 [Last Taken 01/10/19] Herbals/Supplements -Info Only 1 ea PO DAILY 07/11/18 [Last Taken 01/11/19] Lisinopril [Zestril 40 mg (*)] 40 mg PO DAILY 07/11/18 [Last Taken 01/11/19] Metolazone [Zaroxolyn 5MG (*)] 5 mg PO DAILY 07/11/18 [Last Taken 01/11/19] amLODIPine BESYLATE [Norvasc 10 mg (*)] 10 mg PO DAILY 07/11/18 [Last Taken 09/30] C/E/Zn/Cu/OM3/DHA/EPA/LUT/ZEAX [Preservision Areds 2 Softgel] 1 each PO DAILY [Last Taken 01/11/19] Ferrous Sulfate [Ferrous Sulf 325 MG (*)] 325 mg PO DAILY 10/17/18 [Last Taken 01/11/19] hydrALAZINE [Apresoline] 25 mg PO BID 10/17/18 [Last Taken 01/11/19 09:00] I have personally reviewed and updated: family history, medical history, social history, surgical history - Past Medical History Additional medical history: ESRD on HD, CAD/TX s/p PCI (had post-operative STEMI in 2016 after colectomy), GI bleed secondary to diverticulosis, anemia of renal disease, CARROLL on CPAP, prostate cancer s/p radiation, HTN - Surgical History Additional surgical history: sigmoid colectomy (2016) with temporary diverting ileostomy now taken down and re-anastomsed, left upper extremity AV fistula formation, hernia repair, R ABIGAIL - Family History Positive for: non-pertinent Additional family history: CKD in his father. No hx of GI disease - Social History Smoking Status: Never smoked Alcohol Use: Rarely Drug Use: None Additional social history: Lives alone. No family in area but good friend support system. Review of Systems Review of Systems: ROS: 10pt was reviewed & negative except for what was stated in HPI & below Physical Exam Physical Exam: Temp Pulse Resp BP Pulse Ox 36.6 C 78 16 187/87 H 93 01/11/19 14:00 01/11/19 14:00 01/11/19 14:00 01/11/19 14:00 01/11/19 14:00 Constitutional: no apparent distress, appears nourished, not in pain Eyes: PERRL, anicteric sclera, EOMI Ears, Nose, Mouth, Throat: moist mucous membranes, hearing normal, ears appear normal, no oral mucosal ulcers Cardiovascular: regular rate and rhythym, systolic murmur, No edema Respiratory: no respiratory distress, no rales or rhonchi, clear to auscultation Gastrointestinal: normoactive bowel sounds, soft, non-tender abdomen, no palpable masses Genitourinary: no bladder fullness, no bladder tenderness Skin: warm, normal color, no rashes or abrasions, no fluctuance, no induration, other (LUE AV fistula with good thrill), No mottled Musculoskeletal: full muscle strength, no muscle tenderness, normal joint ROM, no joint effusions Neurologic: AAOx3 Psychiatric: interacting appropriately Lab Data & Imaging Review 01/11/19 13:35 01/11/19 13:35 WBC 4.42 10^3/uL (3.80-9.50) 01/11/19 13:35 RBC 3.30 10^6/uL (4.40-6.38) L 01/11/19 13:35 Hgb 10.1 g/dL (13.7-17.5) L 01/11/19 13:35 Hct 31.0 % (40.0-51.0) L 01/11/19 13:35 MCV 93.9 fL (81.5-99.8) 01/11/19 13:35 MCH 30.6 pg (27.9-34.1) 01/11/19 13:35 MCHC 32.6 g/dL (32.4-36.7) 01/11/19 13:35 RDW 14.3 % (11.5-15.2) 01/11/19 13:35 Plt Count 144 10^3/uL (150-400) L 01/11/19 13:35 MPV 10.6 fL (8.7-11.7) 01/11/19 13:35 Neut % (Auto) 72.7 % (39.3-74.2) 01/11/19 13:35 Lymph % (Auto) 12.7 % (15.0-45.0) L 01/11/19 13:35 [place] % (Auto) 10.9 % (4.5-13.0) 01/11/19 13:35 Eos % (Auto) 3.2 % (0.6-7.6) 01/11/19 13:35 Baso % (Auto) 0.0 % (0.3-1.7) L 01/11/19 13:35 Nucleat RBC Rel Count 0.0 % (0.0-0.2) 01/11/19 13:35 Absolute Neuts (auto) 3.21 10^3/uL (1.70-6.50) 01/11/19 13:35 Absolute Lymphs (auto) 0.56 10^3/uL (1.00-3.00) L 01/11/19 13:35 Absolute Monos (auto) 0.48 10^3/uL (0.30-0.80) 01/11/19 13:35 Absolute Eos (auto) 0.14 10^3/uL (0.03-0.40) 01/11/19 13:35 Absolute Basos (auto) 0.00 10^3/uL (0.02-0.10) L 01/11/19 13:35 Absolute Nucleated RBC 0.00 10^3/uL (0-0.01) 01/11/19 13:35 Immature Gran % 0.5 % (0.0-1.1) 01/11/19 13:35 Immature Gran # 0.02 10^3/uL (0.00-0.10) 01/11/19 13:35 RBC/WBC/PLT Morphology TNP 01/11/19 13:35 Platelet Estimate DECREASED (ADEQ) L 01/11/19 13:35 Oval Macrocytes 1+ H 01/11/19 13:35 Acanthocytes (Spur) 1+ H 01/11/19 13:35 PT 14.3 SEC (12.0-15.0) 01/11/19 13:35 INR 1.16 (0.83-1.16) 01/11/19 13:35 APTT 40.2 SEC (23.0-38.0) H 01/11/19 13:35 VBG Lactic Acid 0.5 mmol/L (0.7-2.1) L 01/11/19 14:01 Sodium 138 mEq/L (135-145) 01/11/19 13:35 Potassium 4.5 mEq/L (3.5-5.2) 01/11/19 13:35 Chloride 100 mEq/L (97-110) 01/11/19 13:35 Carbon Dioxide 26 mEq/l (22-31) 01/11/19 13:35 Anion Gap 12 mEq/L (6-14) 01/11/19 13:35 BUN 44 mg/dL (7-23) H 01/11/19 13:35 Creatinine 8.0 mg/dL (0.7-1.3) H* 01/11/19 13:35 Estimated GFR 7 01/11/19 13:35 Glucose 81 mg/dL (70-100) 01/11/19 13:35 Calcium 8.7 mg/dL (8.5-10.4) 01/11/19 13:35 Total Bilirubin 0.6 mg/dL (0.1-1.4) 01/11/19 13:35 Conjugated Bilirubin 0.5 mg/dL (0.0-0.5) 01/11/19 13:35 Unconjugated Bilirubin 0.1 mg/dL (0.0-1.1) 01/11/19 13:35 AST 21 IU/L (17-59) 01/11/19 13:35 ALT 12 IU/L (21-72) L 01/11/19 13:35 Alkaline Phosphatase 76 IU/L (38-126) 01/11/19 13:35 Total Protein 7.6 g/dL (6.3-8.2) 01/11/19 13:35 Albumin 4.3 g/dL (3.5-5.0) 01/11/19 13:35 Patient ABO/Rh O POSITIVE 01/11/19 13:35 Antibody Screen NEGATIVE 01/11/19 13:35 Assessment & Plan Assessment: 78yo M with ESRD on HD, CAD/TX s/p PCI, sigmoid colectomy due to recurrent diverticular bleeds presents with hematochezia. Plan: 1. Hematochezia: Known history of recurrent diverticular bleeds s/p sigmoid colectomy now with re-anastomosis. Colonoscopies have been largely unsuccessful at locating or treating bleed in the past. CTA and tagged RBC scan 06/2018 identified bleed at hepatic flexure but no active bleeding on colonoscopy at that time. I think we need to re-localize the bleed as it's been over 6 months since his last bleed and that has likely healed. - Stat tagged RBC scan - Serial CBC q6h - GI consulted, will see in AM - Pending results of RBC scan, may need IR consultation for visceral angiography - Transfuse for hgb<8 noting CAD 2. CAD: Had post-op STEMI in 2015 with 4 stents placed; also had prior PCI in early . No anginal sxs. - Holding aspirin noting bleed 3. ESRD: Good thrill on LUE AV fistula. Dialyzes MW, last session 01/09. No acute need for HD. - Consulted renal, will see in AM 4. Anemia: Near baseline hgb 10. Monitoring CBC as above. 5. Hypertension: Holding amlodipine and lisinopril pending resolution of bleed, will continue hydralazine noting significantly elevated BP on admit. 6. CARROLL: CPAP at night 7. H/o prostate cancer s/p radiation: No radiation proctitis on previous scopes. VTE ppx: SCDs Code: full Diet: clears, NPO at midnight Dispo: admit as inpatient
--- NOTE | 2019-01-11 17:34 | PDCONSULT ---
Internal Medicine Physician Assistant Note: Assessment/Plan: ESRD: on HD MWF, will do HD tomorrow per routine. HTN: uncontrolled, resume home meds. Anemia: Hgb 10.1, being evaluated for GI bleed. DEO: will check phos with am labs. Thank you for the interesting consult. Nephrology will continue to follow, please call if you have any additional questions or concerns. H & P Stated Complaint: Rectal bleeding noted today. Time Seen by Provider: 01/11/19 12:43 HPI/ROS: HPI: Mr. Watters is an 78 yo M with h/o ERSD on HD MWF at [facility] under Dr. Soria. Pt has h/o recurrent diverticular bleeds and had sigmoid colectomy in the past. He came in because he has had a few episodes of bloody stools today. He denies any N/V, no pain. He last had HD on Saturday per his routine. ROS: positive per HPI, rest of 10-point ROS negative - Medical/Surgical History Hx Asthma: No Hx Chronic Respiratory Disease: No Hx Diabetes: No Hx Cardiac Disease: Yes Hx Renal Disease: Yes Hx Cirrhosis: No Hx Alcoholism: No Hx HIV/AIDS: No Hx Splenectomy or Spleen Trauma: No Other PMH: dialysis, sleep apnea,KIDNEY DISEASE L ARM FISTULA, COLON SURGERY FOR BLEEDING DIVERTICULUM, CA,STENTS, HIP SURGERY. HTN, DM II - Family History Significant Family History: No pertinent family hx - Social History Smoking Status: Never smoked - Physical Exam Exam: General: alert and oriented, no acute distress Eyes: EOMI, PERRL OP: Clear, MMM Neck: supple, no thyromegaly CV: RRR, trace edema BLE Resp: CTA bilat, nonlabored respirations Abd: Soft, NT/ND Neuro: CN II-XII Grossly intact, no asterixis Psych: cooperative, appropriate mood and affect Skin: C/D/I, no rash Access: LUE AVF with thrill and bruit appreciated Constitutional: Initial Vital Signs Temperature (C) 36.8 C 01/11/19 11:53 Heart Rate 90 01/11/19 11:53 Respiratory Rate 16 01/11/19 11:53 Blood Pressure 225/100 H 01/11/19 11:53 O2 Sat (%) 94 01/11/19 11:53 O2 Delivery Mode Room Air Allergies/Adverse Reactions: No Known Allergies Allergy (Verified 10/20/18 09:33) Home Medications: Medication Instructions Recorded Aspirin [Aspirin 81mg (*)] 81 mg PO DAILY 07/11/18 Calcium Carbonate [Tums 500MG (*)] 500 mg PO HS 07/11/18 Cholecalciferol Vit D3 [Vitamin D3 1,000 units PO DAILY 07/11/18 (*)] Folic Acid/Vit B Com W/C 1 each PO DAILY 07/11/18 [Nephro-Racadio Rx] Gabapentin [Neurontin 100 MG (*)] 200 mg PO HS 07/11/18 Herbals/Supplements -Info Only 1 ea PO DAILY 07/11/18 Lisinopril [Zestril 40 mg (*)] 40 mg PO DAILY 07/11/18 Metolazone [Zaroxolyn 5MG (*)] 5 mg PO DAILY 07/11/18 amLODIPine BESYLATE [Norvasc 10 mg 10 mg PO DAILY 07/11/18 (*)] C/E/Zn/Cu/OM3/DHA/EPA/LUT/ZEAX 1 each PO DAILY 10/17/18 [Preservision Areds 2 Softgel] Ferrous Sulfate [Ferrous Sulf 325 325 mg PO DAILY 10/17/18 MG (*)] hydrALAZINE [Apresoline] 25 mg PO BID 10/17/18 Lab and Imaging 01/11/19 13:35 01/11/19 13:35 WBC 4.42 10^3/uL (3.80-9.50) 01/11/19 13:35 RBC 3.30 10^6/uL (4.40-6.38) L 01/11/19 13:35 Hgb 10.1 g/dL (13.7-17.5) L 01/11/19 13:35 Hct 31.0 % (40.0-51.0) L 01/11/19 13:35 MCV 93.9 fL (81.5-99.8) 01/11/19 13:35 MCH 30.6 pg (27.9-34.1) 01/11/19 13:35 MCHC 32.6 g/dL (32.4-36.7) 01/11/19 13:35 RDW 14.3 % (11.5-15.2) 01/11/19 13:35 Plt Count 144 10^3/uL (150-400) L 01/11/19 13:35 MPV 10.6 fL (8.7-11.7) 01/11/19 13:35 Neut % (Auto) 72.7 % (39.3-74.2) 01/11/19 13:35 Lymph % (Auto) 12.7 % (15.0-45.0) L 01/11/19 13:35 [place]han % (Auto) 10.9 % (4.5-13.0) 01/11/19 13:35 Eos % (Auto) 3.2 % (0.6-7.6) 01/11/19 13:35 Baso % (Auto) 0.0 % (0.3-1.7) L 01/11/19 13:35 Nucleat RBC Rel Count 0.0 % (0.0-0.2) 01/11/19 13:35 Absolute Neuts (auto) 3.21 10^3/uL (1.70-6.50) 01/11/19 13:35 Absolute Lymphs (auto) 0.56 10^3/uL (1.00-3.00) L 01/11/19 13:35 Absolute Monos (auto) 0.48 10^3/uL (0.30-0.80) 01/11/19 13:35 Absolute Eos (auto) 0.14 10^3/uL (0.03-0.40) 01/11/19 13:35 Absolute Basos (auto) 0.00 10^3/uL (0.02-0.10) L 01/11/19 13:35 Absolute Nucleated RBC 0.00 10^3/uL (0-0.01) 01/11/19 13:35 Immature Gran % 0.5 % (0.0-1.1) 01/11/19 13:35 Immature Gran # 0.02 10^3/uL (0.00-0.10) 01/11/19 13:35 RBC/WBC/PLT Morphology TNP 01/11/19 13:35 Platelet Estimate DECREASED (ADEQ) L 01/11/19 13:35 Oval Macrocytes 1+ H 01/11/19 13:35 Acanthocytes (Spur) 1+ H 01/11/19 13:35 PT 14.3 SEC (12.0-15.0) 01/11/19 13:35 INR 1.16 (0.83-1.16) 01/11/19 13:35 APTT 40.2 SEC (23.0-38.0) H 01/11/19 13:35 VBG Lactic Acid 0.5 mmol/L (0.7-2.1) L 01/11/19 14:01 Sodium 138 mEq/L (135-145) 01/11/19 13:35 Potassium 4.5 mEq/L (3.5-5.2) 01/11/19 13:35 Chloride 100 mEq/L (97-110) 01/11/19 13:35 Carbon Dioxide 26 mEq/l (22-31) 01/11/19 13:35 Anion Gap 12 mEq/L (6-14) 01/11/19 13:35 BUN 44 mg/dL (7-23) H 01/11/19 13:35 Creatinine 8.0 mg/dL (0.7-1.3) H* 01/11/19 13:35 Estimated GFR 7 01/11/19 13:35 Glucose 81 mg/dL (70-100) 01/11/19 13:35 Calcium 8.7 mg/dL (8.5-10.4) 01/11/19 13:35 Total Bilirubin 0.6 mg/dL (0.1-1.4) 01/11/19 13:35 Conjugated Bilirubin 0.5 mg/dL (0.0-0.5) 01/11/19 13:35 Unconjugated Bilirubin 0.1 mg/dL (0.0-1.1) 01/11/19 13:35 AST 21 IU/L (17-59) 01/11/19 13:35 ALT 12 IU/L (21-72) L 01/11/19 13:35 Alkaline Phosphatase 76 IU/L (38-126) 01/11/19 13:35 Total Protein 7.6 g/dL (6.3-8.2) 01/11/19 13:35 Albumin 4.3 g/dL (3.5-5.0) 01/11/19 13:35 Patient ABO/Rh O POSITIVE 01/11/19 13:35 Antibody Screen NEGATIVE 01/11/19 13:35
--- NOTE | 2019-01-11 21:16 | ASMTLACE ---
ASHUE Acuity / Level of Answers: No Care: Did the patient have an inpatient admission? Comorbidities - select Answers: Any tumor (including all that apply lymphoma or leukemia) Coronary Artery Disease Moderate or severe liver or renal disease Other Notes: GA w/ PCI, ESRD w/ HD, colectomy, GIB secondary to diverticulosis, anemia, OS A w/ CPAP, HTN # of Emergency department Answers: 3-4 visits in the last 6 months Social determinants Answers: Lack of community resources and/or lack of social support (no pcp, lives alone, transportation, ziggy d) Score: 16 Date Signed: 01/11/2019 09:15 PM Electronically Signed By:Sylvia Peng RN
[2019-01-11] MEDS: hydrALAZINE 25 MG TAB PO SCH (22:00)
[2019-01-11] MEDS: CALCIUM CARBONATE 500 MG CHEWABLE TAB PO SCH (22:01)
[2019-01-11] MEDS: GABAPENTIN 100 MG CAP PO SCH (22:01)
[2019-01-12 05:15] LABS: PLATELET COUNT 121 10^3/uL (150-400)
[2019-01-12] MEDS: LISINOPRIL 40 MG TAB PO SCH (08:58)
[2019-01-12] MEDS: hydrALAZINE 25 MG TAB PO SCH ×2 (08:58→20:52)
[2019-01-12] MEDS: CHOLECALCIFEROL VIT D3 1,000 UNITS TAB PO SCH (08:59)
[2019-01-12] MEDS: FERROUS SULFATE 325 MG TAB PO SCH (08:59)
[2019-01-12] MEDS: NEPHROVITE FOLIC ACID/VIT B&C 1 TAB PO SCH (08:59)
--- NOTE | 2019-01-12 10:33 | PDMN ---
Medical Necessity Medical necessity: Pt meets IP criteria per & HE M-182; est los >2 mn for eval/tx of hematochezia; requiring further workup/monitoring & GI/Renal consults ; comorbid advanced age, ESRD on HD, CAD, OK, recurrent diverticular bleeds s/p sigmoid colectomy; per H&P & order 01/11/19
--- NOTE | 2019-01-12 11:02 | SOAPPROG ---
DEBRA Progress Note Assessment/Plan: Assessment/Plan: 78 y/o M with known h/o ESRD on HD who presented with possible GIB. ESRD: - on HD MWF, plan for dialysis today - AVF LUE intact HTN: - uncontrolled, will UF gently today given possible bleed - resume home meds Anemia: - Hgb 9.8g today has h/o GIB and recurrent hematochezia - will dose EPO - workup per GI and primary team - monitoring CBC DEO: - will check phos with am labs Will continue to follow, please contact if ?'s. #[phone] 01/12/19 11:48 Subjective: Patient feeling well today. No bleeding since yesterday however is concerned given this has happened multiple times in the past. Objective: Vital Signs Temp Pulse Resp BP Pulse Ox 36.8 C 77 18 188/96 H 92 01/12/19 08:00 01/12/19 08:00 01/12/19 08:00 01/12/19 08:00 01/12/19 08:00 Laboratory Results 01/12/19 08:55 01/12/19 04:30 01/11/19 01/12/19 01/13/19 05:59 05:59 05:59 Intake Total 450 Balance 450 PT 14.3 SEC (12.0-15.0) 01/11/19 13:35 INR 1.16 (0.83-1.16) 01/11/19 13:35 Physical Exam - Physical Exam General Appearance: WD/WN, alert, no apparent distress EENT: PERRL/EOMI Neck: non-tender, supple Respiratory: chest non-tender, lungs clear Cardiac/Chest: regular rate, rhythm, edema Abdomen: normal bowel sounds, non-tender, organomegaly Skin: normal color, warm/dry Extremities: normal range of motion, non-tender, other (L AVF good thrill and bruit) Neuro/Psych: alert, normal mood/affect, oriented x 3 ICD10 Worksheet Patient Problems: Problems Problem Status Onset GI bleeding Acute Acute bronchitis Acute Anemia Acute Community acquired pneumonia Acute Coronary arteriosclerosis after percutaneous transluminal coronary angioplasty ( PTCA) Acute ESRD on hemodialysis Acute End stage renal disease Acute Epistaxis Acute Hypertension due to end stage renal disease on dialysis Acute Hypotension Acute Hypoxia Acute Lower GI bleed Acute Non-ST elevation (NSTEMI) myocardial infarction Acute Non-ST elevation myocardial infarction (NSTEMI) due to mismatch of myocardial oxygen supply and demand Acute Pulmonary congestion Acute Rectal bleeding Acute Renal failure Acute
[2019-01-12] MEDS ORDERED: EPOETIN ALFA-EPBX 2,000 UNIT/ML VIAL IVP ONE (11:50)
--- NOTE | 2019-01-12 12:02 | ASMTCMCOM ---
CM Note CM Note Notes: CM spoke with pt in the room. Pt lives alone and has a strong network of friends to support him. Pt is very comfortable discharging independent and denies interest in Meals on Wheels. Pt admitted for GI bleed in the setting of ESRD. Pt had HD today. No therapies ordered. RN reports pt is steady on his feet. CM to follow. D/C Plan: Independent Date Signed: 01/12/2019 12:01 PM Electronically Signed By:Louann Garcia. ALLEGRA
--- NOTE | 2019-01-12 12:31 | GCON ---
[f rep st] CONSULTATION REFERRING PHYSICIAN: Ranjith Craig MD CHIEF COMPLAINT: Hematochezia. Dear Dr. Craig: Thank you very kindly for asking me to evaluate Mr. Watters in consultation for a chief complaint of hematochezia. He is a complicated 78-year-old gentleman with recurrent lower GI bleeding (presumptiv sarath) historically attributed to diverticular bleeding. He has actually had a sigmoid colectomy for t his. He was admitted in June, with a very similar presentation to his current admission on this hospital stay with hematochezia. At that time, he had a CT angiography and colonoscopy, which were w ithout source for bleeding. He was ultimately sent home. He was doing well up until yesterday when he had some blood mixed in with his bowel movement in the morning. It was a small amount of blood an d what looked otherwise to be normal stool. The second bowel movement a few hours later was a little bit more bloody, but still had some bowel movement in it, which was normal in color, but his 3rd bow el movement was all jarret blood and fairly larger in volume and given his history, this prompted him to come to the emergency room. He denied feeling short of breath or having any chest pain. There wa s no abdominal pain. He denied any melena. There was no hematemesis. He takes a baby aspirin, but no other anticoagulation. He does have renal disease and is on dialysis, as well as with coronary di sease and a history of angioplasty and stent. He has not had any further bleeding since admission to the hospital with his last large bloody bowel movement that he described at 11:00 am yesterday. His hematocrit was 31.0 on presentation on 01/11/2019, at 1335. This morning's hematocrit is 30.2 at 08 55. His vital signs have been stable without hypotension and he otherwise feels well. He is suppose d to have dialysis today. PAST MEDICAL HISTORY: End-stage renal disease, on hemodialysis. Known coronary disease with a histo ry of percutaneous coronary intervention. Recurrent lower GI bleeding thought to be due to diverticu lar illness. Obstructive sleep apnea. Prostate cancer with a history of radiation. Hypertension. PAST SURGICAL HISTORY: A sigmoid colectomy in 2015. He had a temporary diverting colostomy, which h as now been taken down. He has an AV fistula surgery with revision, umbilical hernia repair, a right total hip arthroplasty. FAMILY HISTORY: Negative for bleeding disorders, thalassemia, or diverticular disease. His father h as had chronic kidney disease. SOCIAL HISTORY: No tobacco. No alcohol. No substance abuse. He lives alone, but has good social s upport. REVIEW OF SYSTEMS: A complete review of systems is negative other than the history of present illnes s. A review of systems was also reviewed by the hospitalist admission history and physical and was n egative other than history of present illness. MEDICATIONS: On admission include hydralazine, iron, amlodipine, metolazone, lisinopril, gabapentin, folate, vitamin D3, calcium, and aspirin 81 mg daily. ALLERGIES: None known. PHYSICAL EXAM: VITAL SIGNS: Blood pressure is 188/96, his heart rate is 77, temperature is 36.8. G ENERAL: Healthy-appearing black male in no acute distress. Alert and appropriate. HEENT: Normocep halic, atraumatic. NECK: Supple. Oropharynx clear. PULMONARY: Clear to auscultation bilaterally. CARDIOVASCULAR: Regular rate and rhythm. Systolic murmur 2/6 at the left sternal border. GI: Ab domen is soft, nontender and nondistended. MUSCULOSKELETAL: He has an AV fistula in the left upper extremity with a normal thrill and it is palpable. No peripheral edema. No clubbing or cyanosis. S KIN: Warm and dry without obvious rash. NEUROLOGIC: Alert to person, place and time. Normal speec h and affect. Motor is grossly nonfocal. DATABASE: Includes white blood count 4.4, hematocrit 31.0, platelets are 144. Hematocrit this morni ng is 30.2. INR is 1.16 with a PT of 14.3. Sodium 136, potassium 4.3, chloride 100, bicarbonate 24, BUN 47, creatinine 9.4. LFTs are normal. Tagged cell bleeding scan is negative for acute bleed. T his was performed on January 11, 2019. A colonoscopy was performed on July 13, 2018. This showed an e nd-to-end colocolonic anastomosis in the rectosigmoid colon at 20 cm and was healthy. There were balwinder e visible sutures. There were multiple small and large-mouth diverticula in the descending colon, tr ansverse colon, hepatic flexure and ascending colon, but no blood within the colonic lumen. A 4 mm p olyp was found in the cecum and was removed with a cold biopsy. IMPRESSION: 1. Hematochezia. 2. Chronic anemia, likely multifactorial and due to renal failure. 3. Known coronary disease, on aspirin. 4. History of recurrent diverticular bleed. RECOMMENDATIONS: 1. The patient is a very pleasant 78-year-old gentleman who is complicated and has had recurrent low er GI bleeding. This most recent episode sounds more mild than his previous and he has not had a hem odynamic compromise or significant decrease in his hematocrit overnight and the bleeding has spontane ously stopped. 2. Because of this, I would choose a conservative management strategy at this time with initiation o f a diet, dialysis today and only further endoscopic interrogation if he has recurrent bleeding or a substantial fall in his hematocrit. 3. I would recommend that he be observed overnight with a.m. CBC to reassess this. 4. Further recommendations will follow depending on his clinical course. I believe he can resume al l of his routine medications including his 81 mg aspirin. 5. We will follow while he is hospitalized and again, the plan will be for upper endoscopy and colon oscopy interrogation if there is recurrent bleeding. /[id number]/MODL
--- NOTE | 2019-01-12 14:34 | HOSPPROG ---
Hospitalist Progress Note Assessment/Plan: 78-year-old with a history of end-stage renal disease and coronary artery disease status post PCI is admitted with hematochezia. He has a history of previous diverticular bleed resulting in a sigmoid colectomy about 2 years ago. # hematochezia in the setting of recurrent diverticular bleeding status post sigmoid colectomy with colostomy and takedown. He had 3 episodes of bleeding Saturday morning while at [employer] and came to the emergency department after the 3rd episode. He has not had significant bleeding since arrival. This most likely represents a diverticular bleed in the setting of painless bright red blood per rectum specially given his history * Discussed with GI * Monitor overnight with repeat hemoglobin * If remains stable with no further bleeding can likely discharge home with follow-up * If he has a rebleed would consider IR or surgical intervention. # end-stage renal disease on dialysis Saturday. Appreciate Nephrology who will dialyze today # coronary artery disease status post STEMI in 2016 with 4 stents placed. No current anginal symptoms. Aspirin on hold. 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 Certainly he could resume it in the future may be at a lower dose i.e. Baby aspirin 3 days a week. Will defer that to Dr. Fernandez * Continue to hold aspirin # hypertension, resume medications today since he has been stable # obstructive sleep apnea, continue CPAP at night # history of prostate cancer status post radiation, no radiation proctitis on previous scopes Subjective: Patient new to me and chart reviewed. Feeling good today no further episodes of bleeding noted per patient no chest pain no shortness of breath no abdominal pain Objective: Vital Signs Temp Pulse Resp BP Pulse Ox 36.8 C 81 18 175/91 H 90 L 01/12/19 11:51 01/12/19 11:51 01/12/19 11:51 01/12/19 11:51 01/12/19 11:51 Laboratory Results 01/12/19 08:55 01/12/19 04:30 01/11/19 01/12/19 01/13/19 05:59 05:59 05:59 Intake Total 450 Balance 450 PT 14.3 SEC (12.0-15.0) 01/11/19 13:35 INR 1.16 (0.83-1.16) 01/11/19 13:35 - Physical Exam Constitutional: no apparent distress, not in pain Eyes: PERRL Ears, Nose, Mouth, Throat: moist mucous membranes Cardiovascular: regular rate and rhythym, systolic murmur Respiratory: no respiratory distress, clear to auscultation Gastrointestinal: soft, non-tender abdomen Genitourinary: no bladder fullness Skin: normal color Neurologic: AAOx3 Psychiatric: interacting appropriately ICD10 Worksheet Patient Problems: Problems Problem Status Onset Lower GI bleed Acute Rectal bleeding Acute Anemia Acute End stage renal disease Acute GI bleeding Acute Renal failure Acute Coronary arteriosclerosis after percutaneous transluminal coronary angioplasty ( PTCA) Acute Non-ST elevation (NSTEMI) myocardial infarction Acute Non-ST elevation myocardial infarction (NSTEMI) due to mismatch of myocardial oxygen supply and demand Acute Hypotension Acute Community acquired pneumonia Acute ESRD on hemodialysis Acute Hypertension due to end stage renal disease on dialysis Acute Epistaxis Acute Acute bronchitis Acute Hypoxia Acute Pulmonary congestion Acute
--- NOTE | 2019-01-12 15:30 | ASMTCMCOM ---
CM Note CM Note Notes: ADDENDUM: Since pt has had multiple admits in last six months, CM initiated conversation about pt's PCP. At pt's request, CM made follow up appointment for him with Dr. Grace Browne this coming at 3pm. Appointment information inserted into discharge instructions. Date Signed: 01/12/2019 03:29 PM Electronically Signed By:Louann Garcia. ALLGERA
[2019-01-12] MEDS: GABAPENTIN 100 MG CAP PO SCH (20:52)
[2019-01-12] MEDS: CALCIUM CARBONATE 500 MG CHEWABLE TAB PO SCH (20:52)
[2019-01-13] MEDS: hydrALAZINE 25 MG TAB PO SCH (07:57)
[2019-01-13] MEDS: LISINOPRIL 40 MG TAB PO SCH (07:57)
[2019-01-13] MEDS: FERROUS SULFATE 325 MG TAB PO SCH (07:57)
[2019-01-13] MEDS: NEPHROVITE FOLIC ACID/VIT B&C 1 TAB PO SCH (07:58)
[2019-01-13] MEDS: CHOLECALCIFEROL VIT D3 1,000 UNITS TAB PO SCH (07:58)
[2019-01-13 11:01] VITALS: BP 171/91
--- NOTE | 2019-01-13 11:59 | GDS ---
[f rep st] DISCHARGE SUMMARY DIAGNOSES: 1. Lower gastrointestinal bleed, likely diverticular. 2. End-stage renal disease. 3. Coronary artery disease, status post previous stents, on aspirin. 4. Hypertension. 5. Obstructive sleep apnea, on continuous positive airway pressure. 6. History of prostate cancer. CONSULTATIONS: GI, Dr. Ti Judd. PROCEDURES DONE: GI nuclear bleeding scan, no evidence of active GI bleeding. HOSPITAL COURSE: The patient is a very sweet 78-year-old man with a history of end-stage renal disea se and heart disease and previous diverticular bleeding, ending up with a sigmoid colectomy. He was in his usual state of health and at [place] when he started noting bright red blood per rectum. He beckford d 3 bloody bowel movements before coming to the emergency department. On admission he was mildly ane ras, however, he had no further BMs. GI was consulted and it was thought to just observe him here in the hospital. His hemoglobin stayed stable. He did receive dialysis while here. Eventually, his h emoglobin stabilized and he had no further bowel movements except for a normal brown stool on the day of discharge. His main issue is heart disease which he is on an aspirin daily for stents placed pre viously, that has been on hold. I will discuss with his bus monitor regarding need for resuming thi s as an outpatient. I would like to hold it for about a week and have him start it perhaps at a lowe r dose of 3 days a week. CONDITION ON DISCHARGE: Good. DISCHARGE MEDICATIONS: Please see discharge medication form. FOLLOWUP: He will establish care with a new PCP. Follow up with Cardiology in 1-2 weeks, and waldo torres return to the hospital should he have further GI bleeding. Total time spent with patient on day of discharge and coordination of care is 35 minutes. /[id number]/MODL
--- NOTE | 2019-01-13 13:00 | SOAPPROG ---
DEBRA Progress Note Assessment/Plan: Assessment/Plan: 78 y/o M with known h/o ESRD on HD who presented with possible GIB. ESRD: - on HD MWF, plan for dialysis today - AVF LUE intact HTN: - uncontrolled, will continue UF as outpatient - continue home meds Anemia: - h/o recurrent hematochezia with previous john-colectomy, GI f/u as outpatient - continue EPO at HD unit - monitoring CBC Will continue to follow, please contact if ?'s. #[phone] 01/13/19 12:58 Subjective: Patient tolerated HD well yesterday. Going home today. Objective: Vital Signs Temp Pulse Resp BP Pulse Ox 36.8 C 76 20 171/91 H 91 L 01/13/19 10:58 01/13/19 10:58 01/13/19 10:58 01/13/19 10:58 01/13/19 10:58 Laboratory Results 01/13/19 05:36 01/12/19 04:30 01/12/19 01/13/19 01/14/19 05:59 05:59 05:59 Intake Total 450 500 Balance 450 500 PT 14.3 SEC (12.0-15.0) 01/11/19 13:35 INR 1.16 (0.83-1.16) 01/11/19 13:35 Physical Exam - Physical Exam General Appearance: WD/WN, no apparent distress EENT: PERRL/EOMI Neck: non-tender, supple Respiratory: chest non-tender, decreased breath sounds Cardiac/Chest: regular rate, rhythm Abdomen: normal bowel sounds, soft Skin: normal color, warm/dry Extremities: normal range of motion, non-tender, other (avf intact) Neuro/Psych: alert, normal mood/affect, oriented x 3 ICD10 Worksheet Patient Problems: Problems Problem Status Onset GI bleeding Acute Acute bronchitis Acute Anemia Acute Community acquired pneumonia Acute Coronary arteriosclerosis after percutaneous transluminal coronary angioplasty ( PTCA) Acute ESRD on hemodialysis Acute End stage renal disease Acute Epistaxis Acute Hypertension due to end stage renal disease on dialysis Acute Hypotension Acute Hypoxia Acute Lower GI bleed Acute Non-ST elevation (NSTEMI) myocardial infarction Acute Non-ST elevation myocardial infarction (NSTEMI) due to mismatch of myocardial oxygen supply and demand Acute Pulmonary congestion Acute Rectal bleeding Acute Renal failure Acute
--- NOTE | 2019-01-13 14:00 | ASMTDCNOTE ---
Case Management Discharge Discharge Order Complete? Answers: Yes Patient to Obtain Answers: Other Notes: friends Medications Transportation Arranged Answers: Family/Friends Transport will Pick (Date 01/13/2019 12:00 PM & Time) Family Notified Answers: Yes Notes: by pt Discharge Comments Notes: Pt to discharge independently per discussion yesterday. PCP appointment made for pt on . No further CM needs noted at this time. Date Signed: 01/13/2019 01:59 PM Electronically Signed By:Louann Ramirez RN
== END 2019-01-13 12:59 | disposition home or self-care (01) | DRG 377 ==
LOC: OBSVTOIN 15:26 → F3E 16:16
PROVIDERS: ADMIT Internal Medicine; ATTEND Internal Medicine
DX: K57.33 Diverticulitis of large intestine without perforation or abscess with bleeding (principal); I12.0 Hypertensive chronic kidney disease with stage 5 chronic kidney disease or end stage renal disease; N18.6 End stage renal disease; I25.10 Atherosclerotic heart disease of native coronary artery without angina pectoris; I25.2 Old myocardial infarction; G47.33 Obstructive sleep apnea (adult) (pediatric); E11.9 Type 2 diabetes mellitus without complications; Z85.46 Personal history of malignant neoplasm of prostate; Z99.2 Dependence on renal dialysis; Z95.5 Presence of coronary angioplasty implant and graft
CPT/HCPCS: A9560; J1642; Q5106